=== PATIENT | male | born 1940 | race Caucasian/White ===

== ENCOUNTER 2017-01-09 19:02 | Inpatient (IN) ==
--- NOTE | 2017-01-09 19:12 | Emergency Department Note ---
Disposition Clinical Impression: Cellulitis of scrotum, Cellulitis of right leg Disposition: Admitted As Inpatient Condition: Good Time of Disposition: 23:00 Male Urogenital HPI - General Chief complaint: ED Urogenital-Male Stated complaint: scrotum swelling Time Seen by Provider: 01/09/17 19:09 Source: patient, EMS Mode of arrival: EMS Limitations: no limitations Nursing Notes Reviewed: Yes Vital Signs Reviewed: Yes - History of Present Illness HPI Narrative: 76-year-old male history of hypertension, hyperlipidemia, BPH, depression presents to the ED [place] for [place]al [place]. Patient presented to the [facility] care today after weeks worth of swelling and pain to the scrotum. He lives at home with his [id number] who finally made him come in for evaluation. He has had 2 days of difficulty with urination. He denies any fever, nausea, vomiting. He has some discomfort in the lower abdomen. Denies any history of diabetes. Patient is bedbound home due to weakness in his extremities. He has significant edema to his right lower leg pressure ulcers currently being treated. At the outside hospital there concern for gee gangrene. He had a WBC 14.4 with positive a cold blood. He was afebrile bear as well as here. Given a dose of Zosyn at the outside hospital. Will give him vancomycin as well as a CT abdomen and pelvis with IV contrast. Serum creatinine was 1.08. Glucose 89. Pt Subjective Complaint: testicle pain, testicle swelling - Related Data Home Medications Medication Instructions Recorded Confirmed Aloe Vera/Collagen [Aloe [place] 1 appl TP AD 01/09/17 01/09/17 Cleansing Foam] Azelastine 0.1% Nasal [place] 1 spray NS BID 01/09/17 01/09/17 [Astelin] Balsam [place] Oil [Venelex 1 appl TP BID 01/09/17 01/09/17 Ointment] Bisacodyl [Dulcolax] 10 mg PO DAILY PRN 01/09/17 01/09/17 Cholecalciferol (D-3) [Vitamin D] 2,000 unit PO DAILY 01/09/17 01/09/17 Cyanocobalamin (Vitamin B-12) 1,000 mcg PO DAILY 01/09/17 01/09/17 [Vitamin B12] Diclofenac Sodium [Voltaren] 4 gm TP QID PRN 01/09/17 01/09/17 Folic Acid 1 mg PO DAILY 01/09/17 01/09/17 Furosemide [Lasix] 40 mg PO DAILY 01/09/17 01/09/17 Gabapentin [Neurontin] 200 mg PO TID 01/09/17 01/09/17 Hexamethyldisiloxane/Acryl-Continuous Process Machine Operator [No 1 each TP AD 01/09/17 01/09/17 Sting Skin Prep Wipes] Hydrocortisone 1% OINT [Cortaid] 1 appl TP BID 01/09/17 01/09/17 Hydrocortisone 2.5% CREAM [Cortaid] 1 appl TP BID 01/09/17 01/09/17 Hydrocortisone/Pramoxine 1 applic RC BID PRN 01/09/17 01/09/17 [Proctofoam-Hc 1%-1% Foam] Hydrophilic Cream [Basle] 1 appl TP DAILY 01/09/17 01/09/17 Ketoconazole Shampoo [Nizoral 1 appl TP DAILY 01/09/17 01/09/17 Shampoo] Lidocaine 1 appl TP QID 01/09/17 01/09/17 Lisinopril [Zestril] 40 mg PO DAILY 01/09/17 01/09/17 Nystatin OINT [Mycostatin] 1 appl TP BID 01/09/17 01/09/17 Nystatin POWDER [Nystop] 1 appl TP BID 01/09/17 01/09/17 Potassium Chloride [K-Tab ER] 20 meq PO DAILY 01/09/17 01/09/17 Propylene Glycol/Peg 400 [Systane 1 drop BOTH EYES QID 01/09/17 01/09/17 0.3-0.4% Eye Drops] Ranitidine HCl [Zantac] 150 mg PO DAILY 01/09/17 01/09/17 Selenium Sulfide [Selrx] 1 appl TP 2XW 01/09/17 01/09/17 Sennosides/Docusate Sodium [Senna 2 each PO DAILY 01/09/17 01/09/17 Plus] Sod Chloride/B-6/Zinc Acet/Ca 3 - 5 spray TP BID 01/09/17 01/09/17 [Wound Cleanser] Tamsulosin [Flomax] 0.4 mg PO HS 01/09/17 01/09/17 Terbinafine HCl [Terbinafine] 1 appl TP BID 01/09/17 01/09/17 Triamcinolone Acet 0.1% CRM 1 appl TP BID 01/09/17 01/09/17 [Kenalog] Triamcinolone Acetonide [Nasacort] 2 spray NS DAILY 01/09/17 01/09/17 Flavia Kirby [Preparation H] 1 each TP BID PRN 01/09/17 01/09/17 Allergies Allergy/AdvReac Type Severity Reaction Status Date / Time atorvastatin Allergy Hives Verified 01/09/17 19:10 codeine Allergy Hives Verified 01/09/17 19:10 etodolac Allergy Hives Verified 01/09/17 19:10 losartan Allergy Hives Verified 01/09/17 19:10 naproxen Allergy Hives Verified 01/09/17 19:10 tramadol Allergy Hives Verified 01/09/17 19:10 All systems ED: reviewed and negative except as stated. Review of Systems: As Per HPI Constitutional: Denies: fever, chills, weight change ENT ED: Denies: congestion, dysphagia Cardiovascular: Denies: chest pain, dyspnea on exertion Respiratory: Denies: cough, dyspnea Gastrointestinal: Denies: abdominal pain, nausea, vomiting Genitourinary: Reports: dysuria, discharge, testicular pain, genital lesions. Denies: urgency Musculoskeletal: Denies: back pain, neck pain Integumentary: Reports: rash, abrasion, lesions Neurological: Denies: headache Psychiatric: Reports: depression. Denies: anxiety, suicidal thoughts, homicidal thoughts Endocrine: Denies: fatigue Hematological/Lymphatic: Denies: easy bleeding Past Medical History - Past Medical History Attestation: Yes The following information was validated with the patient. Source: patient, old records reviewed Medical history: Reports: arthritis, dementia, hyperlipidemia, hypertension, osteoporosis Psychiatric history: Reports: no psych history, anxiety, depression - Social History Smoking Status: Current every day smoker Smokeless Tobacco Status: No Alcohol use: Reports: rarely Drug use: Reports: none Physical Exam - General Limitations: no limitations General appearance: alert, obese - Head Head exam: normal inspection - Eye Eye exam: Present: normal appearance - ENT ENT exam: normal exam, normal oropharynx, mucous membranes moist, normal external ear exam - Neck Neck exam: Present: normal inspection, full ROM, trachea midline - Chest Chest inspection: Present: normal inspection, symmetric chest wall rise - Respiratory Respiratory exam: Present: normal lung sounds bilaterally. Absent: respiratory distress, wheezes - Cardiovascular Cardiovascular exam: Present: regular rate, normal rhythm, normal heart sounds - Abdominal Exam Abdominal Exam: Present: soft (OBESE ABDOMEN), Non-Tender, normal bowel sounds. Absent: tenderness, distention, guarding, rebound - Male exam: Present: induration, ulcerations, testicular tenderness, scrotal swelling, other (NO CREPITUS). Absent: circumcised Scrotal exam: testicular swelling: bilateral image: 1 - ERYTHEMA, SKIN ULCERATION, AND INDURATION WITH FOUL SMELL - Extremities Exam Extremities exam: Present: pedal edema (R > L) - Neurological Exam Neurological exam: Present: alert, oriented X3 - Skin Skin exam: Present: erythema (SCROTUM) - Expanded Skin Exam Distribution: genitals Description: Present: erythematous, swelling, discharge, fluctuant, indurated Course Course Narrative: 76-year-old male presents for scrotal swelling and erythema. Ongoing for the past week now more painful. Some difficulty with urination. Denies any fevers at home. He has a nondiabetic. Patients afebrile here. Sent from outside hospital with a leukocytosis 14. Concern for cellulitis and Gee Gangrene. The scrotum has some significant erythema and induration with a foul smell concern for necrotic tissue. There is no palpable crepitus. CT abdomen and pelvis with IV contrast ordered. He has are ready received IV Zosyn that outside hospital. Will add additional vancomycin coverage. Patients in agreement with this plan. Will consult surgery pending CT results in may likely need surgery. - Reevaluation(s) Reevaluation #1: CT of the pelvis reveals no subcutaneous emphysema or soft tissue gas to suggest gangrene. Clinically this is cellulitis. He will need admission to the hospital for further management. Patient and family are in agreement with this plan. He is otherwise in stable condition. Incidental findings include a bilateral scrotal hydrocele, multiple gallstones small hiatal hernia and a large prostate. Impression is scrotal and right leg cellulitis. Patient has already received Zosyn and vancomycin. Abdomen/Pelvis CT 01/09/17 19:09 IMPRESSION: 1. Bilateral scrotal hydrocele. No soft tissue emphysema. 2. Multiple gallstones. 3. Small hiatal hernia. 4. Mildly enlarged prostate. D/ / 01/09/2017 21:28:15 Derrick Doss MD / [facility] Interpreting Provider: Derrick Doss MD Time: 22:50 - Consultations Consultation #1: Spoke with on-call hospitalist julio Bee to admit for scrotal and right leg cellulitis. No further orders at this time Time: 22:58 Consultation #2: Spoke to the urologist nicolasa Yu to consult on the floor. No further intervention at this time. Time: 23:03 Vital Signs Temperature 97.1 F L 01/09/17 19:04 Pulse Rate 76 01/09/17 19:04 Respiratory Rate 20 01/09/17 19:04 Blood Pressure 164/90 01/09/17 19:04 O2 Sat by Pulse Oximetry 97 01/09/17 19:04 Temperature 98.2 F 01/10/17 03:39 Pulse Rate 70 01/10/17 03:39 Respiratory Rate 18 01/10/17 03:39 Blood Pressure 141/79 01/10/17 03:39 O2 Sat by Pulse Oximetry 92 01/10/17 03:39 Oxygen Delivery Oxygen Delivery Room Air Urogenital-Male - MDM Narrative Medical decision making narrative: Patient was discussed with my attending physician who agrees with ED management and final disposition. They independently evaluated the patient. Please refer to their attestation to this encounter for additional information. This note was generated by [employer] voice recognition software and as a result grammatical or spelling errors may occur using this program. - Medical Records Medical records reviewed: Yes I reviewed the patient's medical records. - Lab Data Lab results reviewed: Yes I reviewed the patient's lab results. Result diagrams: 01/10/17 01:18 - Radiology Data Radiology results reviewed: Yes I reviewed the patient's radiology results. Abdomen/Pelvis CT 01/09/17 19:09 IMPRESSION: 1. Bilateral scrotal hydrocele. No soft tissue emphysema. 2. Multiple gallstones. 3. Small hiatal hernia. 4. Mildly enlarged prostate. D/ / 01/09/2017 21:28:15 Derrick Doss MD / [facility] Interpreting Provider: Derrick Doss MD Critical Care Time Critical Care Time: No Attestation Statement - Attestation Attestation: I, Seth Nichols MD, personally evaluated this patient and discussed their management with the resident physician. I reviewed the resident's note and agree with the documented findings, medical decision making, and plan of care. 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 Patient has cellulitis of the right lower extremity which he states started about 2 weeks ago. Over the past 1 week he has developed increasing pain and redness and swelling of the scrotum. He denies any fever. He was evaluated at the [facility] urgent care and referred here because they were concerned about gangrene. He does complain of some perirectal pain and states it feels like he needs to have a bowel movement. He has been urinating. On examination patient is a well-developed obese elderly male in no acute distress. He is alert and oriented 3. There is no cyanosis or diaphoresis. Breath sounds are equal bilaterally. Heart regular rate and rhythm. Abdomen soft and nontender with normal bowel sounds. There is cellulitis of the scrotum and entire perineal area with some open weeping ulcerations and foul smelling drainage. No palpable crepitus. He is cellulitis and induration extends down onto the anteromedial aspect of the right thigh. He also has cellulitis involving the right lower leg. [facility] of the abdomen and pelvis with IV contrast showed: 1. Bilateral scrotal hydrocele. No soft tissue emphysema. 2. Multiple gallstones. 3. Small hiatal hernia. 4. Mildly enlarged prostate. Patient received IV Zosyn at the [facility] prior to arrival. He was given IV vancomycin here. The hospitalist, Dr. Caban, was consulted and accepted admission of the patient. Dr. Nunez also discussed the patient with the urologist instrumentation controls engineer, Dr. Cuevas.
[2017-01-09] MEDS ORDERED: Vancomycin 2,000 MG in D5% in Water 500 ML IVPB ONE (19:14)
[2017-01-09] MEDS ORDERED: *HR* HYDROmorphone (PF) 1 MG/ML SYRINGE IVP ONE (19:22)
[2017-01-09] MEDS ORDERED: Ondansetron 4 MG/2 ML VIAL IVP ONE (19:22)
[2017-01-10] MEDS ORDERED: ALOE VERA TP SCH (00:30)
[2017-01-10] MEDS ORDERED: COLLAGEN TP SCH (00:30)
[2017-01-10] MEDS ORDERED: [UNRECOGNIZED DRUG - REMARK] TP SCH (00:30)
[2017-01-10] MEDS ORDERED: *HR* Morphine 2 MG/ML SYRINGE IVP PRN (00:46)
[2017-01-10] MEDS ORDERED: Naloxone 0.4 MG/ML INJ IVP PRN (00:46)
[2017-01-10] MEDS ORDERED: Ondansetron 4 MG/2 ML VIAL IVP PRN (00:46)
[2017-01-10] MEDS ORDERED: Piperacillin/Tazobactam 3.375 GM in D5% in Water 50 ML IVPB SCH (01:00)
[2017-01-10] MEDS: 0.9 % Sodium Chloride 1,000 ML IVC SCH ×2 (01:41→20:17)
[2017-01-10 01:52] LABS: BUN/Creatinine Ratio 11 (6-26); Blood Urea Nitrogen 11 mg/dL (8-26); eGFR For African Americans > 60 (> 60); eGFR For Non-African Americans > 60 (> 60)
--- NOTE | 2017-01-10 04:36 | Internal Med History&Physical ---
Date of Encounter: 01/10/17 Time of Encounter: 04:00 Assessment and Plan (1) Cellulitis of scrotum Current visit: Yes Status: Acute Acute cellulitis of scrotum - unclear etiology Continue empiric IV Zosyn, IV Vancomycin CT abdomen and pelvis - bilateral scrotal hydrocele, no soft tissue emphysema, multiple gallstones WBC - 12.8 Cultures - pending Urology consultation pending NPO, labs in a.m., monitor closely (2) Cellulitis of right leg Current visit: Yes Status: Acute Acute cellulitis of right lower leg with chronic edema of bilateral lower legs with open wound Continue empiric IV Zosyn, IV Vancomycin, IV fluids CT abdomen and pelvis - reviewed Wound care consult, change dressing daily, cultures pending (3) Hypertension Current visit: Yes Status: Chronic Essential hypertension, controlled, monitor Continue home dose of Lasix, Zestril Qualifiers: Hypertension type: essential hypertension Qualified Code(s): I10 - Essential (primary) hypertension (4) Morbid obesity Current visit: Yes Status: Acute Abdomen obesity, BMI 43.4, advised lifestyle modifications (5) DVT prophylaxis Current visit: Yes Status: Acute Heparin subcutaneous Internal Medicine - H&P: HPI Chief complaint: Scrotal swelling Admitted From: Emergency Dept Plans for Post Hospital Care: Home History of present illness: Mr. Rodriguez is a 76 year old male with past medical history of hypertension, BPH , chronic leg edema bilateral, peripheral neuropathy and restless legs. He presents to the ED with complaints of scrotal swelling and pain. Examined in the room. Patient is awake and alert. Not in any distress. Able to provide all history. No family members at bedside. Patient states scrotal pain and swelling started about 1 week ago, and symptoms of gradually worsening. Pain is worse with movement. No aggravating or alleviating factors. Patient has also had difficulty with urination for the past 2 days. He denies fever or abdominal pain or vomiting. He denies chest pain or shortness of breath. Denies cough or dizziness or headache. Patient does have severe edema. His lower legs which is worse on the right side and also has ulcers on the right lower leg. [facility]. There is concern for Yobani gangrene. Patient denies any other complaints. No other associated symptoms. Initial workup in the ED is significant for elevated white count and bilateral scrotal hydroceles seen on CT abdomen. There is no soft tissue emphysema. Urology has been consulted from the ED. Patient will need to be on IV antibiotics and will need urology evaluation. Patient has been explained about his condition and plan of care in detail. He understood and agreed. No unanswered questions. CODE STATUS full code. Past Med Surg Social Fam HX - Past Medical History Medical history: arthritis, dementia, hyperlipidemia, hypertension, osteoporosis Psychiatric history: no psych history, anxiety, depression - Social History Smoking Status: Current every day smoker Smokeless Tobacco Status: No Alcohol use: rarely Drug use: none Internal Medicine - H&P: Meds Aloe Vera/Collagen [Aloe [place] Cleansing Foam] 1 appl TP AD 01/09/17 [History] Azelastine 0.1% Nasal [place] [Astelin] 1 spray NS BID 01/09/17 [History] Balsam [place] Oil [Venelex Ointment] 1 appl TP BID 01/09/17 [History] Bisacodyl [Dulcolax] 10 mg PO DAILY PRN 01/09/17 [History] Cholecalciferol (D-3) [Vitamin D] 2,000 unit PO DAILY 01/09/17 [History] Cyanocobalamin (Vitamin B-12) [Vitamin B12] 1,000 mcg PO DAILY 01/09/17 [History ] Diclofenac Sodium [Voltaren] 4 gm TP QID PRN 01/09/17 [History] Folic Acid 1 mg PO DAILY 01/09/17 [History] Furosemide [Lasix] 40 mg PO DAILY 01/09/17 [History] Gabapentin [Neurontin] 200 mg PO TID 01/09/17 [History] Hexamethyldisiloxane/Acryl-[place] Alarm Operator [No Sting Skin Prep Wipes] 1 each TP AD 01/09/17 [History] Hydrocortisone 1% OINT [Cortaid] 1 appl TP BID 01/09/17 [History] Hydrocortisone 2.5% CREAM [Cortaid] 1 appl TP BID 01/09/17 [History] Hydrocortisone/Pramoxine [Proctofoam-Hc 1%-1% Foam] 1 applic RC BID PRN [History] Hydrophilic Cream [Basle] 1 appl TP DAILY 01/09/17 [History] Ketoconazole Shampoo [Nizoral Shampoo] 1 appl TP DAILY 01/09/17 [History] Lidocaine 1 appl TP QID 01/09/17 [History] Lisinopril [Zestril] 40 mg PO DAILY 01/09/17 [History] Nystatin OINT [Mycostatin] 1 appl TP BID 01/09/17 [History] Nystatin POWDER [Nystop] 1 appl TP BID 01/09/17 [History] Potassium Chloride [K-Tab ER] 20 meq PO DAILY 01/09/17 [History] Propylene Glycol/Peg 400 [Systane 0.3-0.4% Eye Drops] 1 drop BOTH EYES QID 01/09 [History] Ranitidine HCl [Zantac] 150 mg PO DAILY 01/09/17 [History] Selenium Sulfide [Selrx] 1 appl TP 2XW 01/09/17 [History] Sennosides/Docusate Sodium [Senna Plus] 2 each PO DAILY 01/09/17 [History] Sod Chloride/B-6/Zinc Acet/Ca [Wound Cleanser] 3 - 5 spray TP BID 01/09/17 [ History] Tamsulosin [Flomax] 0.4 mg PO HS 01/09/17 [History] Terbinafine HCl [Terbinafine] 1 appl TP BID 01/09/17 [History] Triamcinolone Acet 0.1% CRM [Kenalog] 1 appl TP BID 01/09/17 [History] Triamcinolone Acetonide [Nasacort] 2 spray NS DAILY 01/09/17 [History] Flavia Kirby [Preparation H] 1 each TP BID PRN 01/09/17 [History] 3 Allergy/AdvReac Type Severity Reaction Status Date / Time atorvastatin Allergy Hives Verified 01/09/17 19:10 codeine Allergy Hives Verified 01/09/17 19:10 etodolac Allergy Hives Verified 01/09/17 19:10 losartan Allergy Hives Verified 01/09/17 19:10 naproxen Allergy Hives Verified 01/09/17 19:10 tramadol Allergy Hives Verified 01/09/17 19:10 All Systems PM: A 10-system review of systems was performed and is negative for pertinent findings except as documented above in the HPI. - Constitutional Constitutional: fatigue, no fever(s), no weakness - EENT Eyes: no blurry vision - Cardiovascular Cardiovascular ROS IM: edema, no chest pain, no claudication, no diaphoresis, no dyspnea, no dyspnea on exertion, no orthopnea, no palpitations, no syncope - Respiratory Respiratory: no cough, no dyspnea, no hemoptysis, no wheezing, no chest congestion - Gastrointestinal Gastrointestinal: no abdominal pain, no belching, no cramping, no diarrhea, no hematochezia, no nausea, no vomiting - Genitourinary Genitourinary ROS male: scrotal swelling, testicular pain, no dysuria - Neurological Neurological ROS: no abnormal gait, no convulsions, no dizziness, no numbness, no tingling - Constitutional Vitals: Temp Pulse Resp BP Pulse Ox 98.2 F 70 18 141/79 92 01/10/17 03:39 01/10/17 03:39 01/10/17 03:39 01/10/17 03:39 01/10/17 03:39 General appearance: Present: cooperative, A&O X 3, morbidly obese, pleasant, no acute distress, answers questions appropriately - Head Head exam: Present: atraumatic - Eye Eye exam: Present: EOMI - ENT ENT exam: Present: mucous membranes moist - Respiratory Respiratory exam: Present: CTAB. Absent: rales, rhonchi, wheezes, tachypnea - Cardiovascular Cardiovascular exam: Present: RRR, +S1, +S2 - GI/Abdominal GI/Abdominal exam: Present: soft. Absent: distended, firm, guarding, tenderness - exam: Present: scrotal swelling, testicular tenderness External exam: Present: erythema Additional comments: Significant scrotal edema and erythema. Tenderness present. Erythema over the medial aspect of both thighs. No obvious discharge seen. - Extremities Exam Extremities exam: Present: pedal edema (Bilateral lower leg 3+edema, worse on right side, ulcer over right lower leg.), radial pulses palpable and symmetrical. Absent: calf tenderness, cyanotic - Neurological Exam Neurological exam: Present: alert, oriented X3, no focal deficits. Absent: facial droop, speech deficit Internal Med - H&P Results - Labs CBC & Chem 7: 01/10/17 04:34 01/10/17 04:34 Labs: BMP 01/10/17 01:18 BUN 11 Creatinine 0.97
[2017-01-10 04:47] LABS: Basophils # 0.1 K/mcL (0.0-0.2); Basophils % 0.4 %; Eosinophils # 0.3 K/mcL (0.0-0.6); Eosinophils % 2.1 %; Hemoglobin 16.1 g/dL (12.9-16.9); Immature Granulocytes % 0.5 % (0-4); Lymphocytes # 0.8 K/mcL (0.6-4.6); Lymphocytes % 6.6 %; Mean Corpuscular HGB Conc 32.9 g/dL (31.6-35.5); Mean Corpuscular Hemoglobin 32.1 pg (28.0-33.3); Mean Corpuscular Volume 97.8 fL (83.0-100.0); Mean Platelet Volume 12.2 fL (9.4-12.4); Monocytes % 7.5 %; Neutrophils # 10.6 K/mcL (1.6-8.9); Platelet Count 177 K/mcL (140-400); Red Blood Count 5.01 M/mcL (4.19-5.50); Segmented Neutrophils % 82.9 %
[2017-01-10] MEDS: *HR* Heparin 5,000 UNIT/ML VIAL SQ SCH ×2 (04:53→16:44)
[2017-01-10] MEDS: Acetaminophen 325 MG TABLET PO PRN ×3 (04:53→20:18)
[2017-01-10 04:54] LABS: INR 1.2
[2017-01-10 05:00] LABS: BUN/Creatinine Ratio 11 (6-26); Blood Urea Nitrogen 11 mg/dL (8-26); Calcium 8.7 mg/dL (8.6-10.8); Carbon Dioxide 29 mEq/L (19-29); Chloride 99 mEq/L (98-109); Glucose 95 mg/dL (70-99); Magnesium 1.6 mg/dL (1.6-2.6); Osmolality,Calculated 279 (280-300); Potassium 3.8 mEq/L (3.5-4.5); Sodium 135 mEq/L (136-145); eGFR For African Americans > 60 (> 60); eGFR For Non-African Americans > 60 (> 60)
[2017-01-10] MEDS: Vancomycin 1,500 MG in D5% in Water 250 ML IVPB SCH ×2 (08:14→20:18)
[2017-01-10] MEDS: PROPYLENE GLYCOL OP SCH (08:18)
[2017-01-10] MEDS: Lisinopril 20 MG TABLET PO SCH (08:18)
[2017-01-10] MEDS: Gabapentin 100 MG CAPSULE PO SCH ×3 (08:18→20:18)
[2017-01-10] MEDS: Famotidine 20 MG TABLET PO SCH (08:18)
[2017-01-10] MEDS: Folic Acid 1 MG TABLET PO SCH (08:18)
[2017-01-10] MEDS: PEG OP SCH (08:18)
[2017-01-10] MEDS: Sennosides/Docusate Sodium TABLET PO SCH (08:19)
[2017-01-10] MEDS: Cholecalciferol (D-3) 1,000 UNIT TABLET PO SCH (08:19)
[2017-01-10] MEDS: Cyanocobalamin (B-12) 1,000 MCG TABLET PO SCH (08:19)
[2017-01-10] MEDS: Lidocaine OINT 35.44 GM TUBE TP SCH ×5 (08:20→20:36)
[2017-01-10] MEDS ORDERED: Furosemide 40 MG TABLET PO SCH (09:00)
[2017-01-10 09:16] LABS: Bilirubin,Urine Negative (Negative); Blood,Urine Negative (Negative); Clarity,Urine Clear (Clear); Color,Urine Yellow (Yellow); Glucose,Urine (UA) Normal (Normal); Ketones,Urine Trace mg/dL (Negative); Leukocyte Esterase,Urine Negative (Negative); Nitrite,Urine Negative (Negative); Protein,Urine Negative (Neg-Trace); Specific Gravity,Urine > 1.030 (1.010-1.025); Urobilinogen,Urine Normal (Normal)
--- NOTE | 2017-01-10 09:23 | Urology - Consult Note ---
Date of Encounter: 01/10/17 Time of Encounter: 09:21 - Assessment and Plan (1) Cellulitis of scrotum Current Visit: Yes Status: Acute Assessment and plan: I question whether the scrotal and inguinal irritation is more irritation than cellulitis. I Will add Desitin cream to provide barrier. No surgical intervention needed at this time. Recommend to continue with antibiotics. Scrotal elevation at all times. We will continue to follow along closely at this time. CT scan was personally reviewed with no obvious scrotal wall infection. Patient did have bilateral small hydroceles on CT scan. Urology CN:HPI Consult date: 01/10/17 Reason for consult Urology: Other (scrotal swelling) Requesting physician: Anderson Doyle History of present illness: Jayden is a 76 y/o male with history of scrotal swelling for past few weeks. The patient states that he has had this happen before secondary to "fungal infection." Patient states that his discomfort in his scrotum has become worse. Pain is a 5 out of 10. Looking in the scrotum with no radiation. Pain is sharp. Patient states that he does dribble some urine on his scrotum and inguinal region. Past Med Surg Social Fam HX - Past Medical History Medical history: arthritis, dementia, hyperlipidemia, hypertension, osteoporosis Psychiatric history: no psych history, anxiety, depression - Social History Smoking Status: Current every day smoker Smokeless Tobacco Status: No Alcohol use: rarely Drug use: none Medications and Allergies Aloe Vera/Collagen [Aloe [place] Cleansing Foam] 1 appl TP AD 01/09/17 [History] Azelastine 0.1% Nasal [place] [Astelin] 1 spray NS BID 01/09/17 [History] Balsam [place] Oil [Venelex Ointment] 1 appl TP BID 01/09/17 [History] Bisacodyl [Dulcolax] 10 mg PO DAILY PRN 01/09/17 [History] Cholecalciferol (D-3) [Vitamin D] 2,000 unit PO DAILY 01/09/17 [History] Cyanocobalamin (Vitamin B-12) [Vitamin B12] 1,000 mcg PO DAILY 01/09/17 [History ] Diclofenac Sodium [Voltaren] 4 gm TP QID PRN 01/09/17 [History] Folic Acid 1 mg PO DAILY 01/09/17 [History] Furosemide [Lasix] 40 mg PO DAILY 01/09/17 [History] Gabapentin [Neurontin] 200 mg PO TID 01/09/17 [History] Hexamethyldisiloxane/Acryl-Hardware Designer [No Sting Skin Prep Wipes] 1 each TP AD 01/09/17 [History] Hydrocortisone 1% OINT [Cortaid] 1 appl TP BID 01/09/17 [History] Hydrocortisone 2.5% CREAM [Cortaid] 1 appl TP BID 01/09/17 [History] Hydrocortisone/Pramoxine [Proctofoam-Hc 1%-1% Foam] 1 applic RC BID PRN [History] Hydrophilic Cream [Bas[place]] 1 appl TP DAILY 01/09/17 [History] Ketoconazole Shampoo [Nizoral Shampoo] 1 appl TP DAILY 01/09/17 [History] Lidocaine 1 appl TP QID 01/09/17 [History] Lisinopril [Zestril] 40 mg PO DAILY 01/09/17 [History] Nystatin OINT [Mycostatin] 1 appl TP BID 01/09/17 [History] Nystatin POWDER [Nystop] 1 appl TP BID 01/09/17 [History] Potassium Chloride [K-Tab ER] 20 meq PO DAILY 01/09/17 [History] Propylene Glycol/Peg 400 [Systane 0.3-0.4% Eye Drops] 1 drop BOTH EYES QID 01/09 [History] Ranitidine HCl [Zantac] 150 mg PO DAILY 01/09/17 [History] Selenium Sulfide [Selrx] 1 appl TP 2XW 01/09/17 [History] Sennosides/Docusate Sodium [Senna Plus] 2 each PO DAILY 01/09/17 [History] Sod Chloride/B-6/Zinc Acet/Ca [Wound Cleanser] 3 - 5 spray TP BID 01/09/17 [ History] Tamsulosin [Flomax] 0.4 mg PO HS 01/09/17 [History] Terbinafine HCl [Terbinafine] 1 appl TP BID 01/09/17 [History] Triamcinolone Acet 0.1% CRM [Kenalog] 1 appl TP BID 01/09/17 [History] Triamcinolone Acetonide [Nasacort] 2 spray NS DAILY 01/09/17 [History] Flavia Kirby [Preparation H] 1 each TP BID PRN 01/09/17 [History] 3 Allergy/AdvReac Type Severity Reaction Status Date / Time atorvastatin Allergy Hives Verified 01/09/17 19:10 codeine Allergy Hives Verified 01/09/17 19:10 etodolac Allergy Hives Verified 01/09/17 19:10 losartan Allergy Hives Verified 01/09/17 19:10 naproxen Allergy Hives Verified 01/09/17 19:10 tramadol Allergy Hives Verified 01/09/17 19:10 Review of Systems - Constitutional no chills - EENT Nose, mouth and throat: no dizziness - Cardiovascular no chest pain - Respiratory no cough - Gastrointestinal no abdominal pain - Genitourinary as per HPI - Musculoskeletal no back pain - Integumentary no erythema - Neurological no confusion - Psychiatric no anxiety - Hematologic/Lymphatic no easy bleeding - Allergic/Immunologic no throat swelling Exam Initial Vital Signs Temp Pulse Resp BP Pulse Ox 97.1 F L 76 20 164/90 97 01/09/17 19:04 01/09/17 19:04 01/09/17 19:04 01/09/17 19:04 01/09/17 19:04 - General physical appearance Present: well developed - Eyes Present: PERRL - ENT Present: normal nares - Neck Present: no masses - Respiratory Present: normal respiratory effort - Cardiovascular Cardiovascular exam IM: RRR - Abdomen Abdomen: Present: soft - Genitourinary other (Irritated area on scrotum and inguinal regions. Appears more irritated than infectious.) - Integumentary Present: other (See genital urinary exam) - Neurologic Present: normal coordination Urology Results - Labs 01/10/17 04:34 01/10/17 04:34 Abnormal lab results WBC 12.8 K/mcL (4.3-11.1) H 01/10/17 04:34 Neutrophils # 10.6 K/mcL (1.6-8.9) H 01/10/17 04:34 PT 13.0 Seconds (9.4-12.1) H 01/10/17 04:34 Sodium 135 mEq/L (136-145) L 01/10/17 04:34 Calculated Osmolality 279 (280-300) L 01/10/17 04:34 Ur Specific Powers > 1.030 (1.010-1.025) H 01/10/17 09:00 Urine Ketones Trace mg/dL (Negative) H 01/10/17 09:00 Diabetes panel 01/10/17 01/10/17 Range/Units 01:18 04:34 Sodium 135 L (136-145) mEq/L Potassium 3.8 (3.5-4.5) mEq/L Chloride 99 (98-109) mEq/L Carbon Dioxide 29 (19-29) mEq/L BUN 11 11 (8-26) mg/dL Creatinine 0.97 0.97 (0.72-1.25) mg/dL Glucose 95 (70-99) mg/dL Calcium 8.7 (8.6-10.8) mg/dL Calcium panel 01/10/17 Range/Units 04:34 Calcium 8.7 (8.6-10.8) mg/dL Pituitary panel 01/10/17 01/10/17 Range/Units 01:18 04:34 Sodium 135 L (136-145) mEq/L Potassium 3.8 (3.5-4.5) mEq/L Chloride 99 (98-109) mEq/L Carbon Dioxide 29 (19-29) mEq/L BUN 11 11 (8-26) mg/dL Creatinine 0.97 0.97 (0.72-1.25) mg/dL Glucose 95 (70-99) mg/dL Calcium 8.7 (8.6-10.8) mg/dL Adrenal panel 01/10/17 01/10/17 Range/Units 01:18 04:34 Sodium 135 L (136-145) mEq/L Potassium 3.8 (3.5-4.5) mEq/L Chloride 99 (98-109) mEq/L Carbon Dioxide 29 (19-29) mEq/L BUN 11 11 (8-26) mg/dL Creatinine 0.97 0.97 (0.72-1.25) mg/dL Glucose 95 (70-99) mg/dL Calcium 8.7 (8.6-10.8) mg/dL All other labs normal. - Imaging CT scan - abdomen: image reviewed CT scan - pelvis: image reviewed Consult Discharge Plan - Plan [facility]errals: [facility] [Primary Care Provider] - Rebecca Munoz [Family Provider] -
[2017-01-10] MEDS: Piperacillin/Tazobactam 3.375 GM in D5% in Water 50 ML IVPB SCH ×2 (11:53→16:45)
[2017-01-10] MEDS: Desitin (Zinc Oxide) 56 GM TUBE TP SCH ×2 (12:24→20:19)
--- NOTE | 2017-01-10 14:38 | Internal Med Progress Note ---
Date of Encounter: 01/10/17 Time of Encounter: 14:31 - Assessment and plan (1) Bilateral lower extremity edema Current Visit: Yes Status: Acute (2) Cellulitis of scrotum Current Visit: Yes Status: Acute (3) Cellulitis of right leg Current Visit: Yes Status: Acute (4) Morbid obesity Current Visit: Yes Status: Acute (5) Hypertension Current Visit: Yes Status: Chronic Qualifiers: Hypertension type: essential hypertension Qualified Code(s): I10 - Essential (primary) hypertension - Subjective Interval history: Admitted for lower extremity cellulitis and scrotal cellulitis. On IV Vanco and Zosyn. Urology thinks this could be due to skin irritation and a morbidly obese male. Desitin cream prescribed. Patient is concerned about leg swelling and redness. Examined ; it appears he has severe bilateral lower extremity edema with the stasis dermatitis as well as some skin vesicles due to edema. Iodoform dressing with wet and dry dressing daily pressure wrap and SCD prescribed. Increase Lasix to 40 IV twice a day follow CBC CMP magnesium. Order an echocardiogram. Suspect severe pulmonary hypertension/right sided heart failure - Constitutional Vitals: Temp Pulse Resp BP Pulse Ox 98.1 F 75 14 148/86 95 01/10/17 13:56 01/10/17 13:56 01/10/17 13:56 01/10/17 13:56 01/10/17 13:56 General appearance: Present: cooperative, A&O X 3, morbidly obese, pleasant, no acute distress, answers questions appropriately - Head Head exam: Present: atraumatic, normocephalic - Eye Eye exam: Present: PERRL, conjuntiva pink, sclera anicteric Pupils: Present: PERRL - Neck Neck exam general surgery: Present: supple, trachea midline. Absent: lymphadenopathy - Respiratory Respiratory exam: Present: CTAB. Absent: accessory muscle use, rales, rhonchi, wheezes - Cardiovascular Cardiovascular exam: Present: RRR, +S1, +S2. Absent: diastolic murmur, gallop, rubs, systolic murmur - GI/Abdominal GI/Abdominal exam: Present: normal bowel sounds, soft, no peritoneal signs. Absent: distended, tenderness - Extremities Exam Extremities exam: Present: warm, radial pulses palpable and symmetrical. Absent : calf tenderness, cyanotic, pedal edema Additional comments: Scrotal examination per urology. Bilateral lower extremity shows severe edema and stasis dermatitis with some redness and vesicles which have already ruptured. Neurovascular stable - Neurological Exam Neurological exam: Present: CN II-XII intact, oriented X3, no focal deficits. Absent: pronater drift, facial droop, speech deficit - Skin Skin exam: Present: dry, intact Internal Medicine: Result - Labs CBC & Chem 7: 01/10/17 04:34 01/10/17 04:34 Labs: Short CBC 01/10/17 Range/Units 04:34 WBC 12.8 H (4.3-11.1) K/mcL Hgb 16.1 (12.9-16.9) g/dL Hct 49.0 (37.5-50.1) % Plt Count 177 (140-400) K/mcL Neutrophils # 10.6 H (1.6-8.9) K/mcL BMP 01/10/17 01/10/17 01:18 04:34 Sodium 135 L Potassium 3.8 Chloride 99 Carbon Dioxide 29 BUN 11 11 Creatinine 0.97 0.97 Glucose 95 Calcium 8.7 Urine 01/10/17 Range/Units 09:00 Urine Color Yellow (Yellow) Urine Clarity Clear (Clear) Urine pH 6.0 (5.0-8.0) pH Units Ur Specific [place] > 1.030 H (1.010-1.025) Urine Protein Negative (Neg-Trace) mg/dL Urine Glucose (UA) Normal (Normal) mg/dL - ABG Interpretation ABG results: PT/INR, D-dimer PT 13.0 Seconds (9.4-12.1) H 01/10/17 04:34 Consult Discharge Plan - Plan [facility]errals: [facility] [Primary Care Provider] - Rebecca Munoz [Family Provider] -
[2017-01-10] MEDS: Furosemide 40 MG/4 ML VIAL IVP SCH (16:44)
[2017-01-10] MEDS: Propylene Glycol/Peg 400 [Systane 0.3-0.4% Eye Drops] OP SCH ×2 (16:45→20:20)
[2017-01-11] MEDS: Piperacillin/Tazobactam 3.375 GM in 0.9 % Sodium Chloride Mini Bag 100 ML IVPB SCH ×3 (01:50→17:49)
[2017-01-11] MEDS: *HR* Heparin 5,000 UNIT/ML VIAL SQ SCH ×2 (06:11→17:50)
[2017-01-11 08:26] LABS: Basophils # 0.1 K/mcL (0.0-0.2); Basophils % 0.5 %; Eosinophils # 0.3 K/mcL (0.0-0.6); Eosinophils % 2.8 %; Hematocrit 50.7 % (37.5-50.1); Hemoglobin 16.5 g/dL (12.9-16.9); Immature Granulocytes % 0.5 % (0-4); Lymphocytes % 9.5 %; Mean Corpuscular HGB Conc 32.5 g/dL (31.6-35.5); Mean Corpuscular Volume 98.3 fL (83.0-100.0); Monocytes # 0.9 K/mcL (0.0-1.3); Monocytes % 8.5 %; Neutrophils # 7.9 K/mcL (1.6-8.9); Platelet Count 191 K/mcL (140-400); Red Blood Count 5.16 M/mcL (4.19-5.50); Red Cell Distribution Width 13.8 % (11.5-14.5); Segmented Neutrophils % 78.2 %
[2017-01-11 08:36] LABS: Alanine Aminotransferase 15 Units/L (0-55); Albumin 2.5 g/dL (3.5-5.0); Albumin/Globulin Ratio 0.6 (1.1-2.2); Alkaline Phosphatase 109 Units/L (38-126); Aspartate Amino Transferase 27 Units/L (5-34); BUN/Creatinine Ratio 12 (6-26); Blood Urea Nitrogen 11 mg/dL (8-26); Calcium 8.6 mg/dL (8.6-10.8); Carbon Dioxide 29 mEq/L (19-29); Chloride 97 mEq/L (98-109); Globulin 4.1 g/dL (2.4-3.5); Glucose 70 mg/dL (70-99); Osmolality,Calculated 278 (280-300); Potassium 3.6 mEq/L (3.5-4.5); Sodium 135 mEq/L (136-145); Total Protein 6.6 g/dL (6.0-8.3); eGFR For African Americans > 60 (> 60); eGFR For Non-African Americans > 60 (> 60)
[2017-01-11] MEDS: Famotidine 20 MG TABLET PO SCH (10:03)
[2017-01-11] MEDS: Propylene Glycol/Peg 400 [Systane 0.3-0.4% Eye Drops] OP SCH ×4 (10:03→22:23)
[2017-01-11] MEDS: Furosemide 40 MG/4 ML VIAL IVP SCH ×2 (10:03→17:36)
[2017-01-11] MEDS: Gabapentin 100 MG CAPSULE PO SCH ×3 (10:03→20:30)
[2017-01-11] MEDS: Desitin (Zinc Oxide) 56 GM TUBE TP SCH ×2 (10:03→20:30)
[2017-01-11] MEDS: Lidocaine OINT 35.44 GM TUBE TP SCH ×3 (10:03→20:30)
[2017-01-11] MEDS: Lisinopril 20 MG TABLET PO SCH (10:03)
[2017-01-11] MEDS: Cholecalciferol (D-3) 1,000 UNIT TABLET PO SCH ×2 (15:16→20:30)
[2017-01-11] MEDS: Folic Acid 1 MG TABLET PO SCH ×2 (15:16→20:31)
[2017-01-11] MEDS: Cyanocobalamin (B-12) 1,000 MCG TABLET PO SCH ×2 (15:16→20:30)
[2017-01-11] MEDS: Sennosides/Docusate Sodium TABLET PO SCH (15:16)
[2017-01-11] MEDS: *HR* Morphine 2 MG/ML SYRINGE IVP PRN (15:46)
--- NOTE | 2017-01-11 15:50 | Urology Progress Note ---
Date of Encounter: 01/11/17 Time of Encounter: 15:49 - Assessment and Plan (1) Cellulitis of scrotum Current Visit: Yes Status: Acute Assessment and plan: continue with desitin cream. scrotal elevation. will continue to follow. Progress Note Narrative: patient seen. feels better. Objective Initial Vital Signs Temp Pulse Resp BP Pulse Ox 97.1 F L 76 20 164/90 97 01/09/17 19:04 01/09/17 19:04 01/09/17 19:04 01/09/17 19:04 01/09/17 19:04 - General physical appearance Present: well developed - Abdomen Present: soft - Genitourinary Present: other (improved irritation on scrotum and inguinal regions. ) - Labs 01/11/17 07:25 01/11/17 07:15 Diabetes panel 01/11/17 Range/Units 07:15 Sodium 135 L (136-145) mEq/L Potassium 3.6 (3.5-4.5) mEq/L Chloride 97 L (98-109) mEq/L Carbon Dioxide 29 (19-29) mEq/L BUN 11 (8-26) mg/dL Creatinine 0.95 (0.72-1.25) mg/dL Glucose 70 (70-99) mg/dL Calcium 8.6 (8.6-10.8) mg/dL AST 27 (5-34) Units/L ALT 15 (0-55) Units/L Alkaline Phosphatase 109 (38-126) Units/L Albumin 2.5 L (3.5-5.0) g/dL Calcium panel 01/11/17 Range/Units 07:15 Calcium 8.6 (8.6-10.8) mg/dL Albumin 2.5 L (3.5-5.0) g/dL Pituitary panel 01/11/17 Range/Units 07:15 Sodium 135 L (136-145) mEq/L Potassium 3.6 (3.5-4.5) mEq/L Chloride 97 L (98-109) mEq/L Carbon Dioxide 29 (19-29) mEq/L BUN 11 (8-26) mg/dL Creatinine 0.95 (0.72-1.25) mg/dL Glucose 70 (70-99) mg/dL Calcium 8.6 (8.6-10.8) mg/dL Adrenal panel 01/11/17 Range/Units 07:15 Sodium 135 L (136-145) mEq/L Potassium 3.6 (3.5-4.5) mEq/L Chloride 97 L (98-109) mEq/L Carbon Dioxide 29 (19-29) mEq/L BUN 11 (8-26) mg/dL Creatinine 0.95 (0.72-1.25) mg/dL Glucose 70 (70-99) mg/dL Calcium 8.6 (8.6-10.8) mg/dL Total Bilirubin 1.0 (0.2-1.2) mg/dL AST 27 (5-34) Units/L ALT 15 (0-55) Units/L Alkaline Phosphatase 109 (38-126) Units/L Albumin 2.5 L (3.5-5.0) g/dL Consult Discharge Plan - Plan Referrals: [facility] [Primary Care Provider] - Rebecca Munoz [Family Provider] -
[2017-01-11] MEDS: Vancomycin 1,750 MG in D5% in Water 500 ML IVPB SCH (18:29)
--- NOTE | 2017-01-11 18:39 | Internal Med Progress Note ---
Date of Encounter: 01/11/17 Time of Encounter: 18:37 - Assessment and plan (1) Bilateral lower extremity edema Current Visit: Yes Status: Acute Assessment and plan: Asymmetric lower extremities swelling order Doppler ultrasound of legs (2) Cellulitis of scrotum Current Visit: Yes Status: Acute Assessment and plan: Improving with dot cream (3) Cellulitis of right leg Current Visit: Yes Status: Acute Assessment and plan: IV Zosyn and vancomycin (4) Morbid obesity Current Visit: Yes Status: Acute (5) Hypertension Current Visit: Yes Status: Chronic Qualifiers: Hypertension type: essential hypertension Qualified Code(s): I10 - Essential (primary) hypertension - Subjective Interval history: Admitted for lower extremity cellulitis and scrotal cellulitis. On IV Vanco and Zosyn. Urology thinks this could be due to skin irritation and a morbidly obese male. Desitin cream prescribed. Patient is concerned about leg swelling and redness. Examined ; it appears he has severe bilateral lower extremity edema with the stasis dermatitis as well as some skin vesicles due to edema. Iodoform dressing with wet and dry dressing daily pressure wrap and SCD prescribed. Increase Lasix to 40 IV twice a day follow CBC CMP magnesium. Order an echocardiogram. Suspect severe pulmonary hypertension/right sided heart failure 01/11 asymptomatic. Wants to go home. Diuresing well. Asymmetric leg edema noted. Ordering leg ultrasound to rule out DVT. Bilateral leg redness suspect chronic venous stasis dermatitis may have superimposed infection currently on IV vancomycin and Zosyn. Bilateral scrotal edema and redness and urology thinks that this may be due to irritation and Desitin cream was prescribed. Definite improvement in coloration. Significant lower body edema to diurese him. Echocardiogram and ultrasound of lower extremity pending - Constitutional Vitals: Temp Pulse Resp BP Pulse Ox 98.6 F 75 14 117/71 93 01/11/17 14:54 01/11/17 14:54 01/11/17 14:54 01/11/17 14:54 01/11/17 14:54 General appearance: Present: cooperative, A&O X 3, morbidly obese, pleasant, no acute distress, answers questions appropriately - Head Head exam: Present: atraumatic, normocephalic - Eye Eye exam: Present: PERRL, conjuntiva pink, sclera anicteric Pupils: Present: PERRL - Neck Neck exam general surgery: Present: supple, trachea midline. Absent: lymphadenopathy - Respiratory Respiratory exam: Present: CTAB. Absent: accessory muscle use, rales, rhonchi, wheezes - Cardiovascular Cardiovascular exam: Present: RRR, +S1, +S2. Absent: diastolic murmur, gallop, rubs, systolic murmur - GI/Abdominal GI/Abdominal exam: Present: normal bowel sounds, soft, no peritoneal signs. Absent: distended, tenderness - Extremities Exam Extremities exam: Present: pedal edema, tenderness, warm, radial pulses palpable and symmetrical. Absent: calf tenderness, cyanotic - Neurological Exam Neurological exam: Present: CN II-XII intact, oriented X3, no focal deficits. Absent: pronater drift, facial droop, speech deficit - Skin Skin exam: Present: dry, intact Internal Medicine: Result - Labs CBC & Chem 7: 01/11/17 07:25 01/11/17 07:15 Labs: Short CBC 01/11/17 Range/Units 07:25 WBC 10.1 (4.3-11.1) K/mcL Hgb 16.5 (12.9-16.9) g/dL Hct 50.7 H (37.5-50.1) % Plt Count 191 (140-400) K/mcL Neutrophils # 7.9 (1.6-8.9) K/mcL BMP 01/11/17 07:15 Sodium 135 L Potassium 3.6 Chloride 97 L Carbon Dioxide 29 BUN 11 Creatinine 0.95 Glucose 70 Calcium 8.6 Liver Function 01/11/17 Range/Units 07:15 Total Bilirubin 1.0 (0.2-1.2) mg/dL AST 27 (5-34) Units/L ALT 15 (0-55) Units/L Alkaline Phosphatase 109 (38-126) Units/L Albumin 2.5 L (3.5-5.0) g/dL - ABG Interpretation ABG results: PT/INR, D-dimer PT 13.0 Seconds (9.4-12.1) H 01/10/17 04:34 - Impressions Impressions Echocardiogram 01/11/17 14:33 Impressions: LVEF 60%. Normal LV chamber size and function. Mild concentric left ventricular hypertrophy. Atypical septal motion consistent with bundle branch block. Mild left ventricular diastolic dysfunction. Grossly, the right ventricle appears dilated with normal function. Moderate-severe pulmonary hypertension. No obvious significant valvular dysfunction. Findings: Study Quality * Technically adequate exam. * Technically sub-optimal due to COPD. ECG Findings * Normal sinus rhythm. * Sinus rhythm with BBB. Left Ventricle * LVEF 60%. * Normal LV chamber size and function. * Mild concentric left ventricular hypertrophy. * Atypical septal motion consistent with bundle branch block. * Mild left ventricular diastolic dysfunction. Right Ventricle * Grossly, the right ventricle appears dilated with normal function. Left Atrium * Severely dilated left atrium. Right Atrium * Mildly dilated right atrium. Interatrial Septum * Interatrial septum not well evaluated. Aortic Valve * Aortic valve not well visualized. The number of leaflets cannot be determined. * Grossly, mildly calcified aortic valve leaflets. * No aortic regurgitation. * No aortic stenosis. Mitral Valve * Normal mitral valve structure and function. * No mitral regurgitation. * No mitral stenosis. Tricuspid Valve * Normal tricuspid valve structure and function. * Trace tricuspid regurgitation. * Moderate-severe pulmonary hypertension. * Estimated RVSP is 53-58 mmHg. * Estimated RA pressure is 5-10 mmHg. Pulmonic Valve * Pulmonic valve not well visualized. * No pulmonic regurgitation. Aorta * Normally sized aortic root. Pericardium * The pericardium appears normal. IVC * The IVC is dilated. * < 50% respiratory change. Pulmonary Artery * Normal visualized portions of the main pulmonary artery. Consult Discharge Plan - Plan [facility]errals: [facility] [Primary Care Provider] - Rebecca Munoz [Family Provider] -
[2017-01-11] MEDS: Heparin 25,000 UNIT/500 ML D5W 25,000 UNIT/500 ML MLS IVC SCH (22:16)
[2017-01-12] MEDS: Piperacillin/Tazobactam 3.375 GM in 0.9 % Sodium Chloride Mini Bag 100 ML IVPB SCH ×3 (00:30→16:30)
--- NOTE | 2017-01-12 01:59 | Event Note ---
Date of Encounter: 01/12/17 Time of Encounter: 21:15 At about 21:15 a vascular tech reported to me that a lower extremity venous dopper done on this patient was positive for DVT in right distal PTV. I reviewed the patient's history of present illness, labs, and orders. I ordered a PTT and called pharmacy to start heparin on this patient. Her nurse was informed and I informed my attending via Vocera of the new findings. I examined the patient myself and found that the the right extremity had tenderness, edema, pedal pulses present.
[2017-01-12] MEDS: *HR* Morphine 2 MG/ML SYRINGE IVP PRN ×2 (04:41→18:35)
[2017-01-12 05:14] LABS: Basophils # 0.1 K/mcL (0.0-0.2); Basophils % 0.6 %; Eosinophils # 0.4 K/mcL (0.0-0.6); Eosinophils % 3.7 %; Hematocrit 47.1 % (37.5-50.1); Hemoglobin 15.3 g/dL (12.9-16.9); Immature Granulocytes % 0.7 % (0-4); Lymphocytes # 1.4 K/mcL (0.6-4.6); Lymphocytes % 13.5 %; Mean Corpuscular HGB Conc 32.5 g/dL (31.6-35.5); Mean Corpuscular Hemoglobin 32.1 pg (28.0-33.3); Mean Corpuscular Volume 98.7 fL (83.0-100.0); Mean Platelet Volume 12.2 fL (9.4-12.4); Monocytes # 0.9 K/mcL (0.0-1.3); Monocytes % 8.7 %; Neutrophils # 7.5 K/mcL (1.6-8.9); Platelet Count 176 K/mcL (140-400); Red Blood Count 4.77 M/mcL (4.19-5.50); Red Cell Distribution Width 13.8 % (11.5-14.5); Segmented Neutrophils % 72.8 %
[2017-01-12] MEDS: Miconazole 2% ointment 114 GM TUBE TP SCH ×2 (05:17→05:19)
[2017-01-12 05:26] LABS: Alanine Aminotransferase 16 Units/L (0-55); Albumin 2.3 g/dL (3.5-5.0); Albumin/Globulin Ratio 0.6 (1.1-2.2); Alkaline Phosphatase 93 Units/L (38-126); Aspartate Amino Transferase 24 Units/L (5-34); BUN/Creatinine Ratio 12 (6-26); Bilirubin,Total 0.7 mg/dL (0.2-1.2); Blood Urea Nitrogen 13 mg/dL (8-26); Calcium 8.2 mg/dL (8.6-10.8); Carbon Dioxide 29 mEq/L (19-29); Chloride 100 mEq/L (98-109); Globulin 3.7 g/dL (2.4-3.5); Glucose 99 mg/dL (70-99); Osmolality,Calculated 282 (280-300); Potassium 3.6 mEq/L (3.5-4.5); Sodium 136 mEq/L (136-145); eGFR For African Americans > 60 (> 60); eGFR For Non-African Americans > 60 (> 60)
--- NOTE | 2017-01-12 07:15 | Urology Progress Note ---
Date of Encounter: 01/12/17 Time of Encounter: 07:13 - Assessment and Plan (1) Cellulitis of scrotum Current Visit: Yes Status: Acute Assessment and plan: not examined this am. resolving yesterday. continue with scrotal elevation and desitin barrier ointment. patient can f/u with urology as needed. call with questions. Progress Note Narrative: patient seen. sleeping this am. Objective Initial Vital Signs Temp Pulse Resp BP Pulse Ox 97.1 F L 76 20 164/90 97 01/09/17 19:04 01/09/17 19:04 01/09/17 19:04 01/09/17 19:04 01/09/17 19:04 - General physical appearance Present: well developed - Respiratory Present: normal respiratory effort - Labs 01/12/17 05:00 01/12/17 05:00 Diabetes panel 01/11/17 01/12/17 Range/Units 07:15 05:00 Sodium 135 L 136 (136-145) mEq/L Potassium 3.6 3.6 (3.5-4.5) mEq/L Chloride 97 L 100 (98-109) mEq/L Carbon Dioxide 29 29 (19-29) mEq/L BUN 11 13 (8-26) mg/dL Creatinine 0.95 1.07 (0.72-1.25) mg/dL Glucose 70 99 (70-99) mg/dL Calcium 8.6 8.2 L (8.6-10.8) mg/dL AST 27 24 (5-34) Units/L ALT 15 16 (0-55) Units/L Alkaline Phosphatase 109 93 (38-126) Units/L Albumin 2.5 L 2.3 L (3.5-5.0) g/dL Calcium panel 01/11/17 01/12/17 Range/Units 07:15 05:00 Calcium 8.6 8.2 L (8.6-10.8) mg/dL Albumin 2.5 L 2.3 L (3.5-5.0) g/dL Pituitary panel 01/11/17 01/12/17 Range/Units 07:15 05:00 Sodium 135 L 136 (136-145) mEq/L Potassium 3.6 3.6 (3.5-4.5) mEq/L Chloride 97 L 100 (98-109) mEq/L Carbon Dioxide 29 29 (19-29) mEq/L BUN 11 13 (8-26) mg/dL Creatinine 0.95 1.07 (0.72-1.25) mg/dL Glucose 70 99 (70-99) mg/dL Calcium 8.6 8.2 L (8.6-10.8) mg/dL Adrenal panel 01/11/17 01/12/17 Range/Units 07:15 05:00 Sodium 135 L 136 (136-145) mEq/L Potassium 3.6 3.6 (3.5-4.5) mEq/L Chloride 97 L 100 (98-109) mEq/L Carbon Dioxide 29 29 (19-29) mEq/L BUN 11 13 (8-26) mg/dL Creatinine 0.95 1.07 (0.72-1.25) mg/dL Glucose 70 99 (70-99) mg/dL Calcium 8.6 8.2 L (8.6-10.8) mg/dL Total Bilirubin 1.0 0.7 (0.2-1.2) mg/dL AST 27 24 (5-34) Units/L ALT 15 16 (0-55) Units/L Alkaline Phosphatase 109 93 (38-126) Units/L Albumin 2.5 L 2.3 L (3.5-5.0) g/dL Consult Discharge Plan - Plan Referrals: [facility] [Primary Care Provider] - Rebecca Munoz [Family Provider] -
[2017-01-12] MEDS: Propylene Glycol/Peg 400 [Systane 0.3-0.4% Eye Drops] OP SCH ×4 (08:42→21:48)
[2017-01-12] MEDS: Furosemide 40 MG/4 ML VIAL IVP SCH ×2 (08:52→16:29)
[2017-01-12] MEDS: Lisinopril 20 MG TABLET PO SCH (08:54)
[2017-01-12] MEDS: Desitin (Zinc Oxide) 56 GM TUBE TP SCH ×2 (08:54→21:48)
[2017-01-12] MEDS: Lidocaine OINT 35.44 GM TUBE TP SCH ×4 (08:54→21:50)
[2017-01-12] MEDS: Gabapentin 100 MG CAPSULE PO SCH ×3 (08:55→21:46)
[2017-01-12] MEDS: Famotidine 20 MG TABLET PO SCH (08:55)
[2017-01-12] MEDS: Heparin 25,000 UNIT/500 ML D5W 25,000 UNIT/500 ML MLS IVC SCH (13:20)
--- NOTE | 2017-01-12 17:12 | Internal Med Progress Note ---
Date of Encounter: 01/12/17 Time of Encounter: 17:09 - Assessment and plan (1) Bilateral lower extremity edema Current Visit: Yes Status: Acute Assessment and plan: Asymmetric lower extremities swelling order Doppler ultrasound of legs (2) Cellulitis of scrotum Current Visit: Yes Status: Acute Assessment and plan: Improving with dot cream (3) Cellulitis of right leg Current Visit: Yes Status: Acute Assessment and plan: IV Zosyn and vancomycin (4) Morbid obesity Current Visit: Yes Status: Acute (5) Hypertension Current Visit: Yes Status: Chronic Qualifiers: Hypertension type: essential hypertension Qualified Code(s): I10 - Essential (primary) hypertension - Subjective Interval history: Admitted for lower extremity cellulitis and scrotal cellulitis. On IV Vanco and Zosyn. Urology thinks this could be due to skin irritation and a morbidly obese male. Desitin cream prescribed. Patient is concerned about leg swelling and redness. Examined ; it appears he has severe bilateral lower extremity edema with the stasis dermatitis as well as some skin vesicles due to edema. Iodoform dressing with wet and dry dressing daily pressure wrap and SCD prescribed. Increase Lasix to 40 IV twice a day follow CBC CMP magnesium. Order an echocardiogram. Suspect severe pulmonary hypertension/right sided heart failure 01/11 asymptomatic. Diuresing well. Asymmetric leg edema noted. Ordering leg ultrasound to rule out DVT. Bilateral leg redness suspect chronic venous stasis dermatitis may have superimposed infection currently on IV vancomycin and Zosyn. Bilateral scrotal edema and redness and urology thinks that this may be due to irritation and Desitin cream was prescribed. Definite improvement in coloration. Significant lower body edema to diurese him. Echocardiogram and ultrasound of lower extremity pending 01/12 diuresing well. Overall improving. Plan to discharge today however patient wants to leave on Saturday. I put a discharge summary in no medication and when he agrees he can be discharged. Currently on vancomycin and Zosyn. Urology is recommending scrotal elevation and his skin care with Desitin cream - Constitutional Vitals: Temp Pulse Resp BP Pulse Ox 97.6 F 69 18 145/77 93 01/12/17 15:33 01/12/17 15:33 01/12/17 15:33 01/12/17 15:33 01/12/17 15:33 General appearance: Present: cooperative, A&O X 3, morbidly obese, pleasant, no acute distress, answers questions appropriately - Head Head exam: Present: atraumatic, normocephalic - Eye Eye exam: Present: PERRL, conjuntiva pink, sclera anicteric Pupils: Present: PERRL - Neck Neck exam general surgery: Present: supple, trachea midline. Absent: lymphadenopathy - Respiratory Respiratory exam: Present: CTAB. Absent: accessory muscle use, rales, rhonchi, wheezes - Cardiovascular Cardiovascular exam: Present: RRR, +S1, +S2. Absent: diastolic murmur, gallop, rubs, systolic murmur - GI/Abdominal GI/Abdominal exam: Present: normal bowel sounds, soft, no peritoneal signs. Absent: distended, tenderness - Additional comments: Scrotal area is improving - Extremities Exam Extremities exam: Present: warm, radial pulses palpable and symmetrical. Absent : calf tenderness, cyanotic, pedal edema Additional comments: Leg redness is improving - Neurological Exam Neurological exam: Present: CN II-XII intact, oriented X3, no focal deficits. Absent: pronater drift, facial droop, speech deficit - Skin Skin exam: Present: dry, intact Internal Medicine: Result - Labs CBC & Chem 7: 01/12/17 05:00 01/12/17 05:00 Labs: Short CBC 01/12/17 Range/Units 05:00 WBC 10.3 (4.3-11.1) K/mcL Hgb 15.3 (12.9-16.9) g/dL Hct 47.1 (37.5-50.1) % Plt Count 176 (140-400) K/mcL Neutrophils # 7.5 (1.6-8.9) K/mcL BMP 01/12/17 05:00 Sodium 136 Potassium 3.6 Chloride 100 Carbon Dioxide 29 BUN 13 Creatinine 1.07 Glucose 99 Calcium 8.2 L Liver Function 01/12/17 Range/Units 05:00 Total Bilirubin 0.7 (0.2-1.2) mg/dL AST 24 (5-34) Units/L ALT 16 (0-55) Units/L Alkaline Phosphatase 93 (38-126) Units/L Albumin 2.3 L (3.5-5.0) g/dL - ABG Interpretation ABG results: PT/INR, D-dimer PT 13.0 Seconds (9.4-12.1) H 01/10/17 04:34 Consult Discharge Plan - Plan [facility]errals: [facility] [Primary Care Provider[facility] - Rebecca Munoz [Family Provider] -
[2017-01-12] MEDS: Vancomycin 1,750 MG in D5% in Water 500 ML IVPB SCH (17:52)
[2017-01-12] MEDS: Vancomycin 1,500 MG in D5% in Water 250 ML IVPB SCH (19:20)
[2017-01-12] MEDS: PEG OP SCH (19:20)
[2017-01-12] MEDS: PROPYLENE GLYCOL OP SCH (19:20)
[2017-01-12] MEDS: Cyanocobalamin (B-12) 1,000 MCG TABLET PO SCH (21:46)
[2017-01-12] MEDS: Folic Acid 1 MG TABLET PO SCH (21:46)
[2017-01-12] MEDS: Cholecalciferol (D-3) 1,000 UNIT TABLET PO SCH (21:46)
[2017-01-13] MEDS: Piperacillin/Tazobactam 3.375 GM in 0.9 % Sodium Chloride Mini Bag 100 ML IVPB SCH ×3 (00:37→16:50)
[2017-01-13 03:15] LABS: Alanine Aminotransferase 17 Units/L (0-55); Albumin 2.3 g/dL (3.5-5.0); Albumin/Globulin Ratio 0.6 (1.1-2.2); Alkaline Phosphatase 92 Units/L (38-126); Aspartate Amino Transferase 24 Units/L (5-34); BUN/Creatinine Ratio 11 (6-26); Bilirubin,Total 0.6 mg/dL (0.2-1.2); Blood Urea Nitrogen 11 mg/dL (8-26); Calcium 8.2 mg/dL (8.6-10.8); Carbon Dioxide 29 mEq/L (19-29); Chloride 99 mEq/L (98-109); Globulin 3.6 g/dL (2.4-3.5); Glucose 96 mg/dL (70-99); Osmolality,Calculated 281 (280-300); Potassium 3.5 mEq/L (3.5-4.5); Sodium 136 mEq/L (136-145); Total Protein 5.9 g/dL (6.0-8.3); eGFR For African Americans > 60 (> 60); eGFR For Non-African Americans > 60 (> 60)
[2017-01-13 03:36] LABS: Basophils % 0.4 %; Eosinophils # 0.4 K/mcL (0.0-0.6); Eosinophils % 4.6 %; Hematocrit 47.3 % (37.5-50.1); Hemoglobin 15.3 g/dL (12.9-16.9); Immature Granulocytes % 0.5 % (0-4); Lymphocytes # 1.5 K/mcL (0.6-4.6); Lymphocytes % 16.6 %; Mean Corpuscular HGB Conc 32.3 g/dL (31.6-35.5); Mean Corpuscular Hemoglobin 32.1 pg (28.0-33.3); Mean Corpuscular Volume 99.4 fL (83.0-100.0); Mean Platelet Volume 12.6 fL (9.4-12.4); Monocytes # 0.9 K/mcL (0.0-1.3); Monocytes % 9.7 %; Neutrophils # 6.3 K/mcL (1.6-8.9); Platelet Count 183 K/mcL (140-400); Red Blood Count 4.76 M/mcL (4.19-5.50); Red Cell Distribution Width 13.9 % (11.5-14.5); Segmented Neutrophils % 68.2 %
[2017-01-13] MEDS: Miconazole 2% ointment 114 GM TUBE TP SCH (03:51)
[2017-01-13] MEDS: Heparin 25,000 UNIT/500 ML D5W 25,000 UNIT/500 ML MLS IVC SCH ×2 (05:07→21:48)
[2017-01-13] MEDS: Furosemide 40 MG/4 ML VIAL IVP SCH ×2 (07:49→16:52)
[2017-01-13] MEDS: Lidocaine OINT 35.44 GM TUBE TP SCH ×4 (07:50→21:30)
[2017-01-13] MEDS: Desitin (Zinc Oxide) 56 GM TUBE TP SCH ×2 (07:50→21:30)
[2017-01-13] MEDS: Gabapentin 100 MG CAPSULE PO SCH ×3 (07:51→21:29)
[2017-01-13] MEDS: Famotidine 20 MG TABLET PO SCH (07:52)
[2017-01-13] MEDS: Lisinopril 20 MG TABLET PO SCH (07:52)
[2017-01-13] MEDS: Propylene Glycol/Peg 400 [Systane 0.3-0.4% Eye Drops] OP SCH ×4 (07:52→21:30)
[2017-01-13] MEDS: *HR* Morphine 2 MG/ML SYRINGE IVP PRN ×2 (12:28→18:58)
--- NOTE | 2017-01-13 16:42 | Internal Med Progress Note ---
Date of Encounter: 01/13/17 Time of Encounter: 16:40 - Assessment and plan (1) Bilateral lower extremity edema Current Visit: Yes Status: Acute Assessment and plan: Asymmetric lower extremities swelling order Doppler ultrasound of legs (2) Cellulitis of scrotum Current Visit: Yes Status: Acute Assessment and plan: Improving with dot cream (3) Cellulitis of right leg Current Visit: Yes Status: Acute Assessment and plan: IV Zosyn and vancomycin (4) Morbid obesity Current Visit: Yes Status: Acute (5) Hypertension Current Visit: Yes Status: Chronic Qualifiers: Hypertension type: essential hypertension Qualified Code(s): I10 - Essential (primary) hypertension (6) Weakness of both lower extremities Current Visit: Yes Status: Acute Assessment and plan: Complaining of chronic bilateral lower extremity weakness which has not been evaluated before order MRI thoracolumbar and sacral spine without contrast PT/ OT evaluation - Subjective Interval history: Admitted for lower extremity cellulitis and scrotal cellulitis. On IV Vanco and Zosyn. Urology thinks this could be due to skin irritation and a morbidly obese male. Desitin cream prescribed. Patient is concerned about leg swelling and redness. Examined ; it appears he has severe bilateral lower extremity edema with the stasis dermatitis as well as some skin vesicles due to edema. Iodoform dressing with wet and dry dressing daily pressure wrap and SCD prescribed. Increase Lasix to 40 IV twice a day follow CBC CMP magnesium. Order an echocardiogram. Suspect severe pulmonary hypertension/right sided heart failure 01/11 asymptomatic. Diuresing well. Asymmetric leg edema noted. Ordering leg ultrasound to rule out DVT. Bilateral leg redness suspect chronic venous stasis dermatitis may have superimposed infection currently on IV vancomycin and Zosyn. Bilateral scrotal edema and redness and urology thinks that this may be due to irritation and Desitin cream was prescribed. Definite improvement in coloration. Significant lower body edema to diurese him. Echocardiogram and ultrasound of lower extremity pending 01/12 diuresing well. Overall improving. Plan to discharge today however patient wants to leave on Saturday. I put a discharge summary in no medication and when he agrees he can be discharged. Currently on vancomycin and Zosyn. Urology is recommending scrotal elevation and his skin care with Desitin cream 01/13 overall improving however complain that he is not able to walk for quite some time and his doctors have not checked him out at [place]. I examined his lower extremity and he has proximal weakness but again causes not known. He did have multiple falls in the past. I will order MRI thoracolumbar and sacral spine without contrast and order physical therapy and occupational therapy consult. Family is requesting mcc placement therefore social media specialist will be contacted in the morning. As well as his infection is concerned it is improving - Constitutional Vitals: Temp Pulse Resp BP Pulse Ox 98.3 F 72 19 123/73 94 01/13/17 16:34 01/13/17 16:34 01/13/17 16:34 01/13/17 16:34 01/13/17 16:34 General appearance: Present: cooperative, A&O X 3, morbidly obese, pleasant, no acute distress, answers questions appropriately - Head Head exam: Present: atraumatic, normocephalic - Eye Eye exam: Present: PERRL, conjuntiva pink, sclera anicteric Pupils: Present: PERRL - Neck Neck exam general surgery: Present: supple, trachea midline. Absent: lymphadenopathy - Respiratory Respiratory exam: Present: CTAB. Absent: accessory muscle use, rales, rhonchi, wheezes - Cardiovascular Cardiovascular exam: Present: RRR, +S1, +S2. Absent: diastolic murmur, gallop, rubs, systolic murmur - GI/Abdominal GI/Abdominal exam: Present: normal bowel sounds, soft, no peritoneal signs. Absent: distended, tenderness - Extremities Exam Extremities exam: Present: warm, radial pulses palpable and symmetrical. Absent : calf tenderness, cyanotic, pedal edema - Neurological Exam Neurological exam: Present: CN II-XII intact, oriented X3. Absent: pronater drift, facial droop, speech deficit Additional comments: Bilateral lower extremity proximal weakness 4over 5 - Skin Skin exam: Present: dry, intact Internal Medicine: Result - Labs CBC & Chem 7: 01/13/17 02:53 01/13/17 02:53 Labs: Short CBC 01/13/17 Range/Units 02:53 WBC 9.3 (4.3-11.1) K/mcL Hgb 15.3 (12.9-16.9) g/dL Hct 47.3 (37.5-50.1) % Plt Count 183 (140-400) K/mcL Neutrophils # 6.3 (1.6-8.9) K/mcL BMP 01/13/17 02:53 Sodium 136 Potassium 3.5 Chloride 99 Carbon Dioxide 29 BUN 11 Creatinine 1.04 Glucose 96 Calcium 8.2 L Liver Function 01/13/17 Range/Units 02:53 Total Bilirubin 0.6 (0.2-1.2) mg/dL AST 24 (5-34) Units/L ALT 17 (0-55) Units/L Alkaline Phosphatase 92 (38-126) Units/L Albumin 2.3 L (3.5-5.0) g/dL - ABG Interpretation ABG results: PT/INR, D-dimer PT 13.0 Seconds (9.4-12.1) H 01/10/17 04:34 Consult Discharge Plan - Plan [facility]errals: [facility] [Primary Care Provider] - Rebecca Munoz [Family Provider] -
[2017-01-13] MEDS: Vancomycin 1,750 MG in D5% in Water 500 ML IVPB SCH (17:48)
[2017-01-13] MEDS: Cholecalciferol (D-3) 1,000 UNIT TABLET PO SCH (21:28)
[2017-01-13] MEDS: Cyanocobalamin (B-12) 1,000 MCG TABLET PO SCH (21:29)
[2017-01-13] MEDS: Folic Acid 1 MG TABLET PO SCH (21:29)
[2017-01-14] MEDS: Piperacillin/Tazobactam 3.375 GM in 0.9 % Sodium Chloride Mini Bag 100 ML IVPB SCH ×4 (01:06→23:58)
[2017-01-14] MEDS: Heparin 25,000 UNIT/500 ML D5W 25,000 UNIT/500 ML MLS IVC SCH (05:03)
[2017-01-14 05:42] LABS: Basophils # 0.1 K/mcL (0.0-0.2); Basophils % 0.6 %; Eosinophils # 0.5 K/mcL (0.0-0.6); Eosinophils % 5.9 %; Hemoglobin 15.4 g/dL (12.9-16.9); Lymphocytes # 1.5 K/mcL (0.6-4.6); Lymphocytes % 17.1 %; Mean Corpuscular HGB Conc 32.8 g/dL (31.6-35.5); Mean Corpuscular Hemoglobin 32.5 pg (28.0-33.3); Mean Corpuscular Volume 99.2 fL (83.0-100.0); Mean Platelet Volume 12.7 fL (9.4-12.4); Monocytes # 0.8 K/mcL (0.0-1.3); Monocytes % 9.6 %; Neutrophils # 5.6 K/mcL (1.6-8.9); Platelet Count 168 K/mcL (140-400); Red Blood Count 4.74 M/mcL (4.19-5.50); Red Cell Distribution Width 13.8 % (11.5-14.5); Segmented Neutrophils % 65.8 %
[2017-01-14 05:58] LABS: Alanine Aminotransferase 20 Units/L (0-55); Albumin 2.4 g/dL (3.5-5.0); Albumin/Globulin Ratio 0.6 (1.1-2.2); Alkaline Phosphatase 85 Units/L (38-126); Aspartate Amino Transferase 24 Units/L (5-34); BUN/Creatinine Ratio 8 (6-26); Bilirubin,Total 0.6 mg/dL (0.2-1.2); Blood Urea Nitrogen 9 mg/dL (8-26); Calcium 8.4 mg/dL (8.6-10.8); Carbon Dioxide 30 mEq/L (19-29); Chloride 99 mEq/L (98-109); Globulin 3.7 g/dL (2.4-3.5); Glucose 91 mg/dL (70-99); Osmolality,Calculated 282 (280-300); Potassium 3.3 mEq/L (3.5-4.5); Sodium 137 mEq/L (136-145); Total Protein 6.1 g/dL (6.0-8.3); eGFR For African Americans > 60 (> 60); eGFR For Non-African Americans > 60 (> 60)
[2017-01-14] MEDS: Miconazole 2% ointment 114 GM TUBE TP SCH (06:17)
[2017-01-14] MEDS: *HR* Morphine 2 MG/ML SYRINGE IVP PRN ×3 (08:52→23:57)
[2017-01-14] MEDS: Furosemide 40 MG/4 ML VIAL IVP SCH (08:52)
[2017-01-14] MEDS: Desitin (Zinc Oxide) 56 GM TUBE TP SCH ×2 (08:56→21:50)
[2017-01-14] MEDS: Lisinopril 20 MG TABLET PO SCH (08:56)
[2017-01-14] MEDS: Lidocaine OINT 35.44 GM TUBE TP SCH ×4 (08:56→21:49)
[2017-01-14] MEDS: Gabapentin 100 MG CAPSULE PO SCH ×3 (08:56→21:49)
[2017-01-14] MEDS: Famotidine 20 MG TABLET PO SCH (08:56)
[2017-01-14] MEDS: Propylene Glycol/Peg 400 [Systane 0.3-0.4% Eye Drops] OP SCH ×4 (08:58→21:51)
[2017-01-14] MEDS ORDERED: Aminoglycoside Consult 1 EACH MC ONE (09:05)
[2017-01-14] MEDS ORDERED: *HR* LORazepam 2 MG/ML VIAL IVP ONE (15:28)
--- NOTE | 2017-01-14 16:16 | Internal Med Progress Note ---
Date of Encounter: 01/14/17 Time of Encounter: 16:13 - Assessment and plan (1) Bilateral lower extremity edema Current Visit: Yes Status: Acute Assessment and plan: Asymmetric lower extremities swelling order Doppler ultrasound of legs Showed DVT. He also has Pulmonary HTN on Echo. That is the cause of dependent edema. (2) Cellulitis of scrotum Current Visit: Yes Status: Acute Assessment and plan: Improving with dot cream (3) Cellulitis of right leg Current Visit: Yes Status: Acute Assessment and plan: Less and less convinced if he has cellulitis, dc Vanc, continue Zosyn , may swith to Augmentin later. (4) Morbid obesity Current Visit: Yes Status: Acute (5) Hypertension Current Visit: Yes Status: Chronic Qualifiers: Hypertension type: essential hypertension Qualified Code(s): I10 - Essential (primary) hypertension (6) Weakness of both lower extremities Current Visit: Yes Status: Acute Assessment and plan: Complaining of chronic bilateral lower extremity weakness which has not been evaluated before. order MRI thoracolumbar and sacral spine without contrast PT/OT evaluation (7) DVT (deep venous thrombosis) Current Visit: Yes Status: Acute Assessment and plan: Right popleteal DVT , new, started on heparin last night, today switch to Eliquis 10 BID starting dose. Risk / Complication/ Treatment opitons d/w patient. Patient has hx of fall. Awaiting PT for risk assesement. He is from [place]. Probably should spend whole 6 months in [facility]. Qualifiers: DVT location: lower extremity Affected thrombotic vein of extremity: popliteal Chronicity: acute Laterality: right Qualified Code(s): I82.431 - Acute embolism and thrombosis of right popliteal vein - Subjective Interval history: Admitted for lower extremity cellulitis and scrotal cellulitis. On IV Vanco and Zosyn. Urology thinks this could be due to skin irritation and a morbidly obese male. Desitin cream prescribed. Patient is concerned about leg swelling and redness. Examined ; it appears he has severe bilateral lower extremity edema with the stasis dermatitis as well as some skin vesicles due to edema. Iodoform dressing with wet and dry dressing daily pressure wrap and SCD prescribed. Increase Lasix to 40 IV twice a day follow CBC CMP magnesium. Order an echocardiogram. Suspect severe pulmonary hypertension/right sided heart failure 01/11 asymptomatic. Diuresing well. Asymmetric leg edema noted. Ordering leg ultrasound to rule out DVT. Bilateral leg redness suspect chronic venous stasis dermatitis may have superimposed infection currently on IV vancomycin and Zosyn. Bilateral scrotal edema and redness and urology thinks that this may be due to irritation and Desitin cream was prescribed. Definite improvement in coloration. Significant lower body edema to diurese him. Echocardiogram and ultrasound of lower extremity pending 01/12 diuresing well. Overall improving. Plan to discharge today however patient wants to leave on Saturday. I put a discharge summary in no medication and when he agrees he can be discharged. Currently on vancomycin and Zosyn. Urology is recommending scrotal elevation and his skin care with Desitin cream 01/13 overall improving however complain that he is not able to walk for quite some time and his doctors have not checked him out at [place]. I examined his lower extremity and he has proximal weakness but again causes not known. He did have multiple falls in the past. I will order MRI thoracolumbar and sacral spine without contrast and order physical therapy and occupational therapy consult. Family is requesting fpc placement therefore older adult social work specialist will be contacted in the morning. As well as his infection is concerned it is improving - Constitutional Vitals: Temp Pulse Resp BP Pulse Ox 97.5 F L 76 16 181/82 92 01/14/17 15:34 01/14/17 15:34 01/14/17 15:34 01/14/17 15:34 01/14/17 15:34 General appearance: Present: cooperative, A&O X 3, morbidly obese, pleasant, no acute distress, answers questions appropriately Internal Medicine: Result - Labs CBC & Chem 7: 01/14/17 04:59 01/14/17 04:59 Labs: Short CBC 01/14/17 Range/Units 04:59 WBC 8.6 (4.3-11.1) K/mcL Hgb 15.4 (12.9-16.9) g/dL Hct 47.0 (37.5-50.1) % Plt Count 168 (140-400) K/mcL Neutrophils # 5.6 (1.6-8.9) K/mcL BMP 01/14/17 04:59 Sodium 137 Potassium 3.3 L Chloride 99 Carbon Dioxide 30 H BUN 9 Creatinine 1.06 Glucose 91 Calcium 8.4 L Liver Function 01/14/17 Range/Units 04:59 Total Bilirubin 0.6 (0.2-1.2) mg/dL AST 24 (5-34) Units/L ALT 20 (0-55) Units/L Alkaline Phosphatase 85 (38-126) Units/L Albumin 2.4 L (3.5-5.0) g/dL - ABG Interpretation ABG results: PT/INR, D-dimer PT 13.0 Seconds (9.4-12.1) H 01/10/17 04:34 Consult Discharge Plan - Plan [facility]errals: [facility] [Primary Care Provider] - Rebecca Munoz [Family Provider] -
[2017-01-14] MEDS: Folic Acid 1 MG TABLET PO SCH (21:48)
[2017-01-14] MEDS: Cyanocobalamin (B-12) 1,000 MCG TABLET PO SCH (21:48)
[2017-01-14] MEDS: APIXABAN 5 MG TABLET PO SCH (21:49)
[2017-01-14] MEDS: Cholecalciferol (D-3) 1,000 UNIT TABLET PO SCH (21:49)
[2017-01-14] MEDS: Furosemide 40 MG TABLET PO SCH (23:15)
[2017-01-15 06:42] LABS: Basophils % 0.5 %; Eosinophils # 0.5 K/mcL (0.0-0.6); Eosinophils % 5.2 %; Hematocrit 47.2 % (37.5-50.1); Hemoglobin 15.8 g/dL (12.9-16.9); Immature Granulocytes % 0.7 % (0-4); Lymphocytes # 1.1 K/mcL (0.6-4.6); Lymphocytes % 12.2 %; Mean Corpuscular HGB Conc 33.5 g/dL (31.6-35.5); Mean Corpuscular Hemoglobin 32.6 pg (28.0-33.3); Mean Corpuscular Volume 97.5 fL (83.0-100.0); Mean Platelet Volume 12.8 fL (9.4-12.4); Monocytes # 0.9 K/mcL (0.0-1.3); Monocytes % 9.8 %; Neutrophils # 6.3 K/mcL (1.6-8.9); Platelet Count 190 K/mcL (140-400); Red Blood Count 4.84 M/mcL (4.19-5.50); Red Cell Distribution Width 13.8 % (11.5-14.5); Segmented Neutrophils % 71.6 %
[2017-01-15 06:53] LABS: BUN/Creatinine Ratio 8 (6-26); Blood Urea Nitrogen 8 mg/dL (8-26); Carbon Dioxide 28 mEq/L (19-29); Chloride 100 mEq/L (98-109); Glucose 85 mg/dL (70-99); Potassium 3.9 mEq/L (3.5-4.5); Sodium 138 mEq/L (136-145); eGFR For African Americans > 60 (> 60); eGFR For Non-African Americans > 60 (> 60)
[2017-01-15 06:54] LABS: Alanine Aminotransferase 19 Units/L (0-55); Albumin 2.4 g/dL (3.5-5.0); Albumin/Globulin Ratio 0.6 (1.1-2.2); Alkaline Phosphatase 94 Units/L (38-126); Aspartate Amino Transferase 25 Units/L (5-34); Bilirubin,Total 0.7 mg/dL (0.2-1.2); Calcium 8.7 mg/dL (8.6-10.8); Osmolality,Calculated 284 (280-300); Total Protein 6.4 g/dL (6.0-8.3)
[2017-01-15] MEDS ORDERED: Piperacillin/Tazobactam 3.375 GM/200 ML BAG IVPB SCH (09:00)
[2017-01-15] MEDS: Gabapentin 100 MG CAPSULE PO SCH ×2 (09:39→16:21)
[2017-01-15] MEDS: Lisinopril 20 MG TABLET PO SCH (09:40)
[2017-01-15] MEDS: Famotidine 20 MG TABLET PO SCH (09:40)
[2017-01-15] MEDS: Desitin (Zinc Oxide) 56 GM TUBE TP SCH (09:40)
[2017-01-15] MEDS: APIXABAN 5 MG TABLET PO SCH (09:40)
[2017-01-15] MEDS: Lidocaine OINT 35.44 GM TUBE TP SCH ×2 (09:41→13:20)
[2017-01-15] MEDS: Miconazole 2% ointment 114 GM TUBE TP SCH (09:42)
[2017-01-15] MEDS: Furosemide 40 MG TABLET PO SCH (10:18)
[2017-01-15] MEDS: Propylene Glycol/Peg 400 [Systane 0.3-0.4% Eye Drops] OP SCH ×2 (10:19→13:20)
[2017-01-15] MEDS: *HR* Morphine 2 MG/ML SYRINGE IVP PRN (11:27)
[2017-01-15 12:40] VITALS: BP 164/89
--- NOTE | 2017-01-15 14:40 | Internal Med Progress Note ---
Date of Encounter: 01/15/17 Time of Encounter: 10:30 - Assessment and plan (1) Cellulitis of scrotum Current Visit: Yes Status: Acute Assessment and plan: Improving with dot cream and empirical abx (2) Cellulitis of right leg Current Visit: Yes Status: Acute Assessment and plan: Improved Cont local care More like venous stasis changes cont [place] wraps switched to PO Abx Augmentin (3) Morbid obesity Current Visit: Yes Status: Acute Assessment and plan: counseled to loose weight (4) Hypertension Current Visit: Yes Status: Chronic Assessment and plan: stable with current regimen Qualifiers: Hypertension type: essential hypertension Qualified Code(s): I10 - Essential (primary) hypertension (5) Bilateral lower extremity edema Current Visit: Yes Status: Acute Assessment and plan: mostly venous stasis cont [place] wraps keep legs elevated cont PO Lasix (6) Weakness of both lower extremities Current Visit: Yes Status: Acute Assessment and plan: Cmostly due to physical deconditioning due to his morbid obesity, he is high risk for spinal stenosis / disc prolapse pt refused to go for MRI / further work up recommend to f/u as an out pt PT / OT eval now (7) DVT (deep venous thrombosis) Current Visit: Yes Status: Acute Assessment and plan: Rt posterior tibial DVT on Eliquis 10mg BID # 2/ then continue 5mg BID Qualifiers: DVT location: lower extremity Affected thrombotic vein of extremity: popliteal Chronicity: acute Laterality: right Qualified Code(s): I82.431 - Acute embolism and thrombosis of right popliteal vein (8) Physical deconditioning Current Visit: Yes Status: Acute Assessment and plan: Need ECF placement for short term rehab medically stable to d/c to ECF.. waiting on PT / OT eval, SW assessment - Subjective Interval history: Mr. Rodriguez is a 76 year old male with past medical history of hypertension, BPH , chronic leg edema bilateral, peripheral neuropathy and restless legs. He presents to the ED with complaints of scrotal swelling and pain. He was placed on empirical abx with Zosyn. For his b/l LE swelling , Rt leg celulities, he did have venous doppler which showed Rt leg posterior tibial DVT. Currently he was placed on Eliquis for anticoag. He is alert, awake and O x 3. denied any CP / SOB. His b/l LE weakness also better now. - Constitutional Vitals: Temp Pulse Resp BP Pulse Ox 98 F 74 16 164/89 94 01/15/17 12:38 01/15/17 12:38 01/15/17 12:38 01/15/17 12:38 01/15/17 12:38 General appearance: Present: cooperative, A&O X 3, morbidly obese, no acute distress, answers questions appropriately - Head Head exam: Present: atraumatic, normal inspection - Respiratory Respiratory exam: Present: decreased breath sounds. Absent: rales, respiratory distress, rhonchi, wheezes - Cardiovascular Cardiovascular exam: Present: RRR, +S1, +S2. Absent: tachycardia - GI/Abdominal GI/Abdominal exam: Present: normal bowel sounds, soft. Absent: rebound, rigid, tenderness - Extremities Exam Extremities exam: Present: pedal edema. Absent: calf tenderness, tenderness Additional comments: improved erythema and cellulites in Rt leg . - Back Exam Back exam: Absent: CVA tenderness (L), CVA tenderness (R) - Neurological Exam Neurological exam: Present: alert, oriented X3 - Psychiatric Psychiatric exam: Present: normal affect, normal mood Internal Medicine: Result - Labs CBC & Chem 7: 01/15/17 05:56 01/15/17 05:56 Labs: Short CBC 01/15/17 Range/Units 05:56 WBC 8.7 (4.3-11.1) K/mcL Hgb 15.8 (12.9-16.9) g/dL Hct 47.2 (37.5-50.1) % Plt Count 190 (140-400) K/mcL Neutrophils # 6.3 (1.6-8.9) K/mcL BMP 01/15/17 05:56 Sodium 138 Potassium 3.9 Chloride 100 Carbon Dioxide 28 BUN 8 Creatinine 0.95 Glucose 85 Calcium 8.7 Liver Function 01/15/17 Range/Units 05:56 Total Bilirubin 0.7 (0.2-1.2) mg/dL AST 25 (5-34) Units/L ALT 19 (0-55) Units/L Alkaline Phosphatase 94 (38-126) Units/L Albumin 2.4 L (3.5-5.0) g/dL - ABG Interpretation ABG results: PT/INR, D-dimer PT 13.0 Seconds (9.4-12.1) H 11/23/17 04:34 Consult Discharge Plan - Plan Referrals: [facility] [Primary Care Provider] - Rebecca Munoz [Family Provider] -
--- NOTE | 2017-01-15 16:00 | Discharge Summary ---
Date of Encounter: 01/15/17 Time of Encounter: 15:56 - Discharge Diagnosis (1) Cellulitis of scrotum Priority: Primary Status: Resolved (2) Cellulitis of right leg Priority: Primary Status: Acute (3) DVT (deep venous thrombosis) Priority: Primary Status: Acute Qualifiers: DVT location: lower extremity Affected thrombotic vein of extremity: popliteal Chronicity: acute Laterality: right Qualified Code(s): I82.431 - Acute embolism and thrombosis of right popliteal vein (4) Morbid obesity Priority: Secondary Status: Acute (5) Hypertension Priority: Secondary Status: Chronic Qualifiers: Hypertension type: essential hypertension Qualified Code(s): I10 - Essential (primary) hypertension (6) Bilateral lower extremity edema Priority: Secondary Status: Acute (7) Weakness of both lower extremities Priority: Secondary Status: Acute (8) Physical deconditioning Priority: Secondary Status: Acute - Discharge Medications Home Medications: Aloe Vera/Collagen [Aloe [place] Cleansing Foam] 1 appl TP AD 01/09/17 [History] Azelastine 0.1% Nasal [place] [Astelin] 1 spray NS BID 01/09/17 [History] Balsam [place] Oil [Venelex Ointment] 1 appl TP BID 01/09/17 [History] Bisacodyl [Dulcolax] 10 mg PO DAILY PRN 01/09/17 [History] Cholecalciferol (D-3) [Vitamin D] 2,000 unit PO DAILY 01/09/17 [History] Cyanocobalamin (Vitamin B-12) [Vitamin B12] 1,000 mcg PO DAILY 01/09/17 [History ] Diclofenac Sodium [Voltaren] 4 gm TP QID PRN 01/09/17 [History] Folic Acid 1 mg PO DAILY 01/09/17 [History] Gabapentin [Neurontin] 200 mg PO TID 01/09/17 [History] Hexamethyldisiloxane/Acryl-Glue Maker Bone [No Sting Skin Prep Wipes] 1 each TP AD 01/09/17 [History] Hydrocortisone 1% OINT [Cortaid] 1 appl TP BID 01/09/17 [History] Hydrocortisone 2.5% CREAM [Cortaid] 1 appl TP BID 01/09/17 [History] Hydrocortisone/Pramoxine [Proctofoam-Hc 1%-1% Foam] 1 applic RC BID PRN [History] Hydrophilic Cream [Basle] 1 appl TP DAILY 01/09/17 [History] Ketoconazole Shampoo [Nizoral Shampoo] 1 appl TP DAILY 01/09/17 [History] Lidocaine 1 appl TP QID 01/09/17 [History] Lisinopril [Zestril] 40 mg PO DAILY 01/09/17 [History] Nystatin OINT [Mycostatin] 1 appl TP BID 01/09/17 [History] Nystatin POWDER [Nystop] 1 appl TP BID 01/09/17 [History] Potassium Chloride [K-Tab ER] 20 meq PO DAILY 01/09/17 [History] Propylene Glycol/Peg 400 [Systane 0.3-0.4% Eye Drops] 1 drop BOTH EYES QID 01/09 [History] Ranitidine HCl [Zantac] 150 mg PO DAILY 01/09/17 [History] Selenium Sulfide [Selrx] 1 appl TP 2XW 01/09/17 [History] Sennosides/Docusate Sodium [Senna Plus] 2 each PO DAILY 01/09/17 [History] Sod Chloride/B-6/Zinc Acet/Ca [Wound Cleanser] 3 - 5 spray TP BID 01/09/17 [ History] Tamsulosin [Flomax] 0.4 mg PO HS 01/09/17 [History] Terbinafine HCl [Terbinafine] 1 appl TP BID 01/09/17 [History] Triamcinolone Acet 0.1% CRM [Kenalog] 1 appl TP BID 01/09/17 [History] Triamcinolone Acetonide [Nasacort] 2 spray NS DAILY 01/09/17 [History] Flavia Kirby [Preparation H] 1 each TP BID PRN 01/09/17 [History] Amoxicillin/Clavulanate [Augmentin] 875 mg PO BIDWM #10 tablet 01/15/17 [Rx] Apixaban [Eliquis] 10 mg PO BID #60 tablet 01/15/17 [Rx] Desitin (Zinc Oxide) [Desitin] 1 appl TP BID tube 01/15/17 [Rx] Furosemide [Lasix] 40 mg PO BID #0 01/15/17 [Rx] Allergies/Adverse Reactions: 3 Allergy/AdvReac Type Severity Reaction Status Date / Time atorvastatin Allergy Hives Verified 01/09/17 19:10 codeine Allergy Hives Verified 01/09/17 19:10 etodolac Allergy Hives Verified 01/09/17 19:10 losartan Allergy Hives Verified 01/09/17 19:10 naproxen Allergy Hives Verified 01/09/17 19:10 tramadol Allergy Hives Verified 01/09/17 19:10 Date of admission: 01/10/17 00:47 [facility] care physician: [facility] Consults: 01/10/17 05:28 Consult to Wound Care [CONS] Routine Reason for Consult: Right lower leg ulcer Call Completed: No 01/13/17 16:08 Consult to Erosion Control Coordinator [CONS] Routine Reason for SW Consult: Needs rehab 01/13/17 16:39 Consult to Occupational Therapy [CONS] Routine Comment: Evaluate, develop and implement POC Reason for Consult: Patient reports inability to walk PT [Consult to Physical Therapy] [CONS] Routine Comment: Evaluate, develop and implement POC Reason for Consult: Unable to walk - Patient Status Disposition: Transfer SNF Condition: Good Overall status at discharge: patient is back to baseline - Discharge Instructions Follow Up With: [facility] [Primary Care Provider[facility] - Rebecca Munoz [Family Provider] - Additional Instructions: Please take Eliquis 10mg PO BID x 5 more days then continue 5mg PO BID only for DVT treatment - Diet and Activity Activity: increase activity as tolerated Diet: low salt diet Hospital course: Mr. Rodriguez is a 76 year old male with past medical history of hypertension, BPH , chronic leg edema bilateral, peripheral neuropathy and restless legs. He presents to the ED with complaints of scrotal swelling and pain. He was placed on empirical abx with Zosyn. For his b/l LE swelling , Rt leg celulities, he did have venous doppler which showed Rt leg posterior tibial DVT. Currently he was placed on Eliquis for anticoag. His scrotal swelling, erythema and Rt leg cellulities also started improving. Switched to PO Augmentin today. Pt was flaquito by PT / OT recommend ECF placement for short term PT / OT So will d/c him to ECF today in stable condition. - Time Spent with Patient Total time spent providing and/or coordinating discharge services: - Constitutional Vitals: Temp Pulse Resp BP Pulse Ox 98 F 74 16 164/89 94 11/28/17 12:38 01/15/17 12:38 01/15/17 12:38 01/15/17 12:38 01/15/17 12:38 General appearance: Present: cooperative, A&O X 3, morbidly obese, no acute distress, answers questions appropriately - Head Head exam: Present: atraumatic, normal inspection - Respiratory Respiratory exam: Present: decreased breath sounds, wheezes (mild). Absent: respiratory distress, rhonchi - Cardiovascular Cardiovascular exam: Present: RRR, +S1, +S2. Absent: tachycardia - Expanded Exam Male exam: Present: erythema (Improving erythema over Scrotum) - Extremities Exam Extremities exam: Absent: calf tenderness, tenderness Additional comments: improving swelling / erythema in Rt leg - Psychiatric Psychiatric exam: Present: normal affect, normal mood
--- NOTE | 2017-01-15 16:03 | Physician Discharge Referral ---
ExtendedCare Referral Info Transfer To: ECF Provider in Charge after Transfer: PCP Institutional Level of Care: Skilled - Diagnosis (1) Cellulitis of scrotum Status: Resolved (2) Cellulitis of right leg Status: Acute (3) DVT (deep venous thrombosis) Status: Acute (4) Morbid obesity Status: Acute (5) Hypertension Status: Chronic (6) Bilateral lower extremity edema Status: Acute (7) Weakness of both lower extremities Status: Acute (8) Physical deconditioning Status: Acute - Transfer Medications Home Medications: Aloe Vera/Collagen [Aloe [place] Cleansing Foam] 1 appl TP AD 01/09/17 [History] Azelastine 0.1% Nasal [place] [Astelin] 1 spray NS BID 01/09/17 [History] Balsam [place] Oil [Venelex Ointment] 1 appl TP BID 01/09/17 [History] Bisacodyl [Dulcolax] 10 mg PO DAILY PRN 01/09/17 [History] Cholecalciferol (D-3) [Vitamin D] 2,000 unit PO DAILY 01/09/17 [History] Cyanocobalamin (Vitamin B-12) [Vitamin B12] 1,000 mcg PO DAILY 01/09/17 [History ] Diclofenac Sodium [Voltaren] 4 gm TP QID PRN 01/09/17 [History] Folic Acid 1 mg PO DAILY 01/09/17 [History] Gabapentin [Neurontin] 200 mg PO TID 01/09/17 [History] Hexamethyldisiloxane/Acryl-Milking Machine Operator [No Sting Skin Prep Wipes] 1 each TP AD 01/09/17 [History] Hydrocortisone 1% OINT [Cortaid] 1 appl TP BID 01/09/17 [History] Hydrocortisone 2.5% CREAM [Cortaid] 1 appl TP BID 01/09/17 [History] Hydrocortisone/Pramoxine [Proctofoam-Hc 1%-1% Foam] 1 applic RC BID PRN [History] Hydrophilic Cream [Basle] 1 appl TP DAILY 01/09/17 [History] Ketoconazole Shampoo [Nizoral Shampoo] 1 appl TP DAILY 01/09/17 [History] Lidocaine 1 appl TP QID 01/09/17 [History] Lisinopril [Zestril] 40 mg PO DAILY 01/09/17 [History] Nystatin OINT [Mycostatin] 1 appl TP BID 01/09/17 [History] Nystatin POWDER [Nystop] 1 appl TP BID 01/09/17 [History] Potassium Chloride [K-Tab ER] 20 meq PO DAILY 01/09/17 [History] Propylene Glycol/Peg 400 [Systane 0.3-0.4% Eye Drops] 1 drop BOTH EYES QID 01/09 [History] Ranitidine HCl [Zantac] 150 mg PO DAILY 01/09/17 [History] Selenium Sulfide [Selrx] 1 appl TP 2XW 01/09/17 [History] Sennosides/Docusate Sodium [Senna Plus] 2 each PO DAILY 01/09/17 [History] Sod Chloride/B-6/Zinc Acet/Ca [Wound Cleanser] 3 - 5 spray TP BID 01/09/17 [ History] Tamsulosin [Flomax] 0.4 mg PO HS 01/09/17 [History] Terbinafine HCl [Terbinafine] 1 appl TP BID 01/09/17 [History] Triamcinolone Acet 0.1% CRM [Kenalog] 1 appl TP BID 01/09/17 [History] Triamcinolone Acetonide [Nasacort] 2 spray NS DAILY 01/09/17 [History] Flavia Kirby [Preparation H] 1 each TP BID PRN 01/09/17 [History] Amoxicillin/Clavulanate [Augmentin] 875 mg PO BIDWM #10 tablet 01/15/17 [Rx] Apixaban [Eliquis] 10 mg PO BID #60 tablet 01/15/17 [Rx] Desitin (Zinc Oxide) [Desitin] 1 appl TP BID tube 01/15/17 [Rx] Furosemide [Lasix] 40 mg PO BID #0 01/15/17 [Rx] Allergies/Adverse Reactions: 3 Allergy/AdvReac Type Severity Reaction Status Date / Time atorvastatin Allergy Hives Verified 01/09/17 19:10 codeine Allergy Hives Verified 01/09/17 19:10 etodolac Allergy Hives Verified 01/09/17 19:10 losartan Allergy Hives Verified 01/09/17 19:10 naproxen Allergy Hives Verified 01/09/17 19:10 tramadol Allergy Hives Verified 01/09/17 19:10 - Respiratory Orders Smoking Cessation: Smoking cessation has been advised. For more information, call the [place] Tobacco Quit Line at 2-555-TRWP-NOW. CERTIFICATION: I certify that the transfer of the above named patient to an Extended Care Facility is necessary for the continuing treatment of the diagnosis listed. The above information is true and accurate reflection of patient's current condition. Confidential - Redisclosure prohibited without a patient's written consent.
== END 2017-01-15 18:00 | disposition other institution (70) | DRG 728 ==
LOC: 3ANU 19:02 → EMEROO 19:02 → 3ANU 23:48 → SUATTDRO 01-10 00:47
PROVIDERS: ADMIT Family Medicine; ATTEND Family Medicine

== ENCOUNTER 2017-02-13 16:54 | Inpatient (IN) ==
--- NOTE | 2017-02-13 17:11 | Emergency Department Note ---
Disposition Clinical Impression: GI bleed Qualifiers: GI bleed type/associated pathology: unspecified gastrointestinal hemorrhage type Qualified Code(s): K92.2 - Gastrointestinal hemorrhage, unspecified Anemia Qualifiers: Anemia type: iron deficiency Iron deficiency anemia type: chronic blood loss Qualified Code(s): D50.0 - Iron deficiency anemia secondary to blood loss ( chronic) Disposition: Admitted As Inpatient Condition: Fair [facility]errals: [facility] [Primary Care Provider] - Rebecca Munoz [Family Provider] - Forms: ED Satisfaction Letter Time of Disposition: 18:59 GI Bleed HPI - General Chief complaint: ED GI Bleed Stated complaint: gi Time Seen by Provider: 02/13/17 17:03 Source: patient, EMS Mode of arrival: EMS Limitations: no limitations Nursing Notes Reviewed: Yes Vital Signs Reviewed: Yes - History of Present Illness HPI Narrative: 76-year-old male who comes in from the [facility] after being diagnosed GI bleed. Patient was admitted here back in and the December and was found to have an acute right leg DVT. He was started on Eliquis . He was noted to have dark tarry stools for the last couple weeks. Seen at the [facility] today however they did not do a CBC that I can find. They did give him IV Protonix. Current blood pressures 125 over palp. Patient has a history of ulcer in the past. Patient was seen yesterday outside facility and diagnosed with a UTI. Pt Subjective Complaint: other (Dark tarry stools) Onset (ago): week(s) Consistency: intermittent (2) Severity: none Improves with: nothing Worsens with: nothing Context: anticoagulant use Associated symptoms: Reports: abdominal pain Treatments Prior to Arrival: none - Related Data Home Medications Medication Instructions Recorded Confirmed Aloe Vera/Collagen [Aloe [place] 1 appl TP AD 01/09/17 01/09/17 Cleansing Foam] Azelastine 0.1% Nasal [place] 1 spray NS BID 01/09/17 01/09/17 [Astelin] Balsam [place] Oil [Venelex 1 appl TP BID 01/09/17 01/09/17 Ointment] Bisacodyl [Dulcolax] 10 mg PO DAILY PRN 01/09/17 01/09/17 Cholecalciferol (D-3) [Vitamin D] 2,000 unit PO DAILY 01/09/17 01/09/17 Cyanocobalamin (Vitamin B-12) 1,000 mcg PO DAILY 01/09/17 01/09/17 [Vitamin B12] Diclofenac Sodium [Voltaren] 4 gm TP QID PRN 01/09/17 01/09/17 Folic Acid 1 mg PO DAILY 01/09/17 01/09/17 Gabapentin [Neurontin] 200 mg PO TID 01/09/17 01/09/17 Hexamethyldisiloxane/Acryl-Personal Development Educator [No 1 each TP AD 01/09/17 01/09/17 Sting Skin Prep Wipes] Hydrocortisone 1% OINT [Cortaid] 1 appl TP BID 01/09/17 01/09/17 Hydrocortisone 2.5% CREAM [Cortaid] 1 appl TP BID 01/09/17 01/09/17 Hydrocortisone/Pramoxine 1 applic RC BID PRN 01/09/17 01/09/17 [Proctofoam-Hc 1%-1% Foam] Hydrophilic Cream [Basle] 1 appl TP DAILY 01/09/17 01/09/17 Ketoconazole Shampoo [Nizoral 1 appl TP DAILY 01/09/17 01/09/17 Shampoo] Lidocaine 1 appl TP QID 01/09/17 01/09/17 Lisinopril [Zestril] 40 mg PO DAILY 01/09/17 01/09/17 Nystatin OINT [Mycostatin] 1 appl TP BID 01/09/17 01/09/17 Nystatin POWDER [Nystop] 1 appl TP BID 01/09/17 01/09/17 Potassium Chloride [K-Tab ER] 20 meq PO DAILY 01/09/17 01/09/17 Propylene Glycol/Peg 400 [Systane 1 drop BOTH EYES QID 01/09/17 01/09/17 0.3-0.4% Eye Drops] Ranitidine HCl [Zantac] 150 mg PO DAILY 01/09/17 01/09/17 Selenium Sulfide [Selrx] 1 appl TP 2XW 01/09/17 01/09/17 Sennosides/Docusate Sodium [Senna 2 each PO DAILY 01/09/17 01/09/17 Plus] Sod Chloride/B-6/Zinc Acet/Ca 3 - 5 spray TP BID 01/09/17 01/09/17 [Wound Cleanser] Tamsulosin [Flomax] 0.4 mg PO HS 01/09/17 01/09/17 Terbinafine HCl [Terbinafine] 1 appl TP BID 01/09/17 01/09/17 Triamcinolone Acet 0.1% CRM 1 appl TP BID 01/09/17 01/09/17 [Kenalog] Triamcinolone Acetonide [Nasacort] 2 spray NS DAILY 01/09/17 01/09/17 Flavia Kirby [Preparation H] 1 each TP BID PRN 01/09/17 01/09/17 Previous Rx's Medication Instructions Recorded Amoxicillin/Clavulanate [Augmentin] 875 mg PO BIDWM #10 tablet 01/15/17 Apixaban [Eliquis] 10 mg PO BID #60 tablet 01/15/17 Desitin (Zinc Oxide) [Desitin] 1 appl TP BID tube 01/15/17 Furosemide [Lasix] 40 mg PO BID #0 01/15/17 Allergies Allergy/AdvReac Type Severity Reaction Status Date / Time atorvastatin Allergy Hives Verified 01/09/17 19:10 codeine Allergy Hives Verified 01/09/17 19:10 etodolac Allergy Hives Verified 01/09/17 19:10 losartan Allergy Hives Verified 01/09/17 19:10 naproxen Allergy Hives Verified 01/09/17 19:10 tramadol Allergy Hives Verified 01/09/17 19:10 Constitutional: Denies: fever, chills, weakness, weight change Eyes: Denies: eye pain, eye discharge, vision change ENT ED: Denies: ear pain, throat pain, dental pain, hearing loss, epistaxis, congestion, dysphagia Cardiovascular: Denies: chest pain, palpitations, dyspnea on exertion, edema, syncope Respiratory: Denies: cough, dyspnea, wheezes, hemoptysis, stridor Gastrointestinal: Reports: other (Dark tarry stools). Denies: abdominal pain, nausea, vomiting, diarrhea, constipation, hematemesis, melena, hematochezia Genitourinary: Denies: urgency, dysuria, frequency, hematuria Musculoskeletal: Reports: arthralgia (Right leg pain). Denies: back pain, neck pain, myalgia Integumentary: Denies: rash, abrasion, lesions Neurological: Denies: headache, weakness, numbness, paresthesias, confusion, abnormal gait, vertigo Psychiatric: Denies: anxiety, depression, suicidal thoughts, homicidal thoughts , auditory hallucinations, visual hallucinations Endocrine: Denies: fatigue Hematological/Lymphatic: Denies: easy bleeding, easy bruising Allergic/Immunologic: Denies: facial swelling, urticaria Past Medical History - Past Medical History Medical history: Reports: arthritis, dementia, hyperlipidemia, hypertension, osteoporosis Psychiatric history: Reports: no psych history, anxiety, depression - Social History Smoking Status: Current every day smoker Smokeless Tobacco Status: No Alcohol use: Reports: rarely Drug use: Reports: none Physical Exam - General Limitations: no limitations General appearance: alert - Head Head exam: atraumatic, normocephalic, normal inspection - Eye Eye exam: Present: normal appearance, PERRL, EOMI - ENT ENT exam: normal exam, normal oropharynx, mucous membranes moist - Neck Neck exam: Present: normal inspection, full ROM, trachea midline - Chest Chest inspection: Present: normal inspection, symmetric chest wall rise - Respiratory Respiratory exam: Present: normal lung sounds bilaterally - Cardiovascular Cardiovascular exam: Present: regular rate, normal rhythm, normal heart sounds - Abdominal Exam Abdominal exam: Present: soft, tenderness. Absent: guarding, rebound Abdominal tenderness: Present: diffuse, mild - Extremities Exam Extremities exam: Present: normal inspection, full ROM. Absent: tenderness, pedal edema - Expanded Lower Extremity Exam Neurovascular/Tendon exam: Absent: motor deficit, sensory deficit, tendon deficit Gait: observed and normal - Back Exam Back exam: Present: normal inspection, full ROM. Absent: tenderness - Neurological Exam Neurological exam: Present: alert, oriented X3 - Psychiatric Psychiatric exam: Present: normal affect, normal mood - Skin Skin exam: Present: warm, dry, intact, normal color Course - Reevaluation(s) Reevaluation #1: 76-year-old who was diagnosed with a DVT back in December and started on Eliquis. He developed dark tarry stools over the last couple of weeks. Was found to have a low hemoglobin. Hemoglobin today was 8.7. His hemoglobin in December was 17.5. His INR was 2.5. Patient will be given fresh frozen plasma, and blood since she's had a significant drop per gastroenterology. Time: 18:58 - Consultations Consultation #1: Discussed with Dr.Gul, [facility] fresh frozen plasma, 2 units of packed red cells due to the significant hemoglobin drop and will see him in consult. Also recommended a PPI drip. Time: 18:25 Consultation #2: Discussed with randee Fairbanks. Time: 18:58 Vital Signs Temperature 97.3 F L 02/13/17 16:58 Pulse Rate 63 02/13/17 16:58 Respiratory Rate 20 02/13/17 16:58 Blood Pressure 125/46 02/13/17 16:58 O2 Sat by Pulse Oximetry 95 02/13/17 16:58 Temperature 97.3 F L 02/13/17 16:58 Pulse Rate 86 02/13/17 18:07 Respiratory Rate 20 02/13/17 18:07 Blood Pressure 102/59 02/13/17 18:07 O2 Sat by Pulse Oximetry 96 02/13/17 18:07 Oxygen Delivery Oxygen Delivery Room Air GI Bleed - Lab Data Result diagrams: 02/13/17 17:27 02/13/17 17:27 Lab Results 02/13/17 02/13/17 02/13/17 Range/Units 17:05 17:27 17:27 WBC 14.0 H (4.3-11.1) K/mcL RBC 2.66 L (4.19-5.50) M/mcL Hgb 8.5 L (12.9-16.9) g/dL Hct 25.7 L (37.5-50.1) % MCV 96.6 (83.0-100.0) fL MCH 32.0 (28.0-33.3) pg MCHC 33.1 (31.6-35.5) g/dL RDW 13.3 (11.5-14.5) % Plt Count 137 L (140-400) K/mcL MPV 13.6 H (9.4-12.4) fL Immature Gran % 0.8 (0-4) % Seg Neutrophils % 81.7 % Lymphocytes % 10.4 % Monocytes % 5.2 % Eosinophils % 1.6 % Basophils % 0.3 % Neutrophils # 11.5 H (1.6-8.9) K/mcL Lymphocytes # 1.5 (0.6-4.6) K/mcL Monocytes # 0.7 (0.0-1.3) K/mcL Eosinophils # 0.2 (0.0-0.6) K/mcL Basophils # 0.0 (0.0-0.2) K/mcL PT 27.9 H (9.4-12.1) Seconds INR 2.5 APTT 33.0 (26.0-36.0) Seconds Sodium (136-145) mEq/L Potassium (3.5-5.1) mEq/L Chloride (98-107) mEq/L Carbon Dioxide (23-29) mEq/L BUN (8-23) mg/dL Creatinine (0.70-1.30) mg/dL Est GFR ( Amer) (> 60) Est GFR (Non-Af Amer) (> 60) BUN/Creatinine Ratio (6-26) Glucose (70-105) mg/dL Calculated Osmolality (280-300) Calcium (8.6-10.3) mg/dL Urine Color Yellow (Yellow) Urine Clarity Clear (Clear) Urine pH 5.5 (5.0-8.0) pH Units Ur Specific [place] 1.025 (1.010-1.025) Urine Protein Negative (Neg-Trace) mg/dL Urine Glucose (UA) Normal (Normal) mg/dL Urine Ketones Negative (Negative) mg/dL Urine Blood Negative (Negative) Urine Nitrite Negative (Negative) Urine Bilirubin Negative (Negative) Urine Urobilinogen Normal (Normal) mg/dL Ur Leukocyte Esterase Negative (Negative) Ur Culture Indicated? NO (NO) Blood Type Antibody Screen Crossmatch 02/13/17 02/13/17 Range/Units 17:27 17:27 WBC (4.3-11.1) K/mcL RBC (4.19-5.50) M/mcL Hgb (12.9-16.9) g/dL Hct (37.5-50.1) % MCV (83.0-100.0) fL MCH (28.0-33.3) pg MCHC (31.6-35.5) g/dL RDW (11.5-14.5) % Plt Count (140-400) K/mcL MPV (9.4-12.4) fL Immature Gran % (0-4) % Seg Neutrophils % % Lymphocytes % % Monocytes % % Eosinophils % % Basophils % % Neutrophils # (1.6-8.9) K/mcL Lymphocytes # (0.6-4.6) K/mcL Monocytes # (0.0-1.3) K/mcL Eosinophils # (0.0-0.6) K/mcL Basophils # (0.0-0.2) K/mcL PT (9.4-12.1) Seconds INR APTT (26.0-36.0) Seconds Sodium 140 (136-145) mEq/L Potassium 3.5 (3.5-5.1) mEq/L Chloride 107 (98-107) mEq/L Carbon Dioxide 27 (23-29) mEq/L BUN 64 H (8-23) mg/dL Creatinine 1.24 (0.70-1.30) mg/dL Est GFR ( Amer) > 60 (> 60) Est GFR (Non-Af Amer) 57 L (> 60) BUN/Creatinine Ratio 52 H (6-26) Glucose 101 (70-105) mg/dL Calculated Osmolality 308 H (280-300) Calcium 8.4 L (8.6-10.3) mg/dL Urine Color (Yellow) Urine Clarity (Clear) Urine pH (5.0-8.0) pH Units Ur Specific [place] (1.010-1.025) Urine Protein (Neg-Trace) mg/dL Urine Glucose (UA) (Normal) mg/dL Urine Ketones (Negative) mg/dL Urine Blood (Negative) Urine Nitrite (Negative) Urine Bilirubin (Negative) Urine Urobilinogen (Normal) mg/dL Ur Leukocyte Esterase (Negative) Ur Culture Indicated? (NO) Blood Type AB POSITIVE Antibody Screen NEGATIVE Crossmatch See Detail Critical Care Time Critical Care Time: Yes Total Critical Care Time: 30 Attestation: The high probability of a clinically significant, sudden or life threatening deterioration of the [hematologic] system(s) required my full and direct attention, intervention and personal management. The aggregate critical care time was [30] minutes. This time is in addition to time spent performing reported procedures but includes the following: [x] Data Review and interpretation [x] Patient assessment and monitoring of vital signs [x] Documentation [x] Medication orders and management
[2017-02-13 17:18] LABS: Bilirubin,Urine Negative (Negative); Blood,Urine Negative (Negative); Clarity,Urine Clear (Clear); Color,Urine Yellow (Yellow); Glucose,Urine (UA) Normal (Normal); Ketones,Urine Negative (Negative); Leukocyte Esterase,Urine Negative (Negative); Nitrite,Urine Negative (Negative); PH,Urine 5.5 pH Units (5.0-8.0); Protein,Urine Negative (Neg-Trace); Specific Gravity,Urine 1.025 (1.010-1.025); Urobilinogen,Urine Normal (Normal)
[2017-02-13 17:39] LABS: Basophils % 0.3 %; Eosinophils # 0.2 K/mcL (0.0-0.6); Eosinophils % 1.6 %; Hematocrit 25.7 % (37.5-50.1); Hemoglobin 8.5 g/dL (12.9-16.9); Immature Granulocytes % 0.8 % (0-4); Lymphocytes # 1.5 K/mcL (0.6-4.6); Lymphocytes % 10.4 %; Mean Corpuscular HGB Conc 33.1 g/dL (31.6-35.5); Mean Corpuscular Volume 96.6 fL (83.0-100.0); Mean Platelet Volume 13.6 fL (9.4-12.4); Monocytes # 0.7 K/mcL (0.0-1.3); Monocytes % 5.2 %; Neutrophils # 11.5 K/mcL (1.6-8.9); Platelet Count 137 K/mcL (140-400); Red Blood Count 2.66 M/mcL (4.19-5.50); Red Cell Distribution Width 13.3 % (11.5-14.5); Segmented Neutrophils % 81.7 %
[2017-02-13 17:47] LABS: INR 2.5; Prothrombin Time 27.9 Seconds (9.4-12.1)
[2017-02-13 17:52] LABS: BUN/Creatinine Ratio 52 (6-26); Blood Urea Nitrogen 64 mg/dL (8-23); Calcium 8.4 mg/dL (8.6-10.3); Carbon Dioxide 27 mEq/L (23-29); Chloride 107 mEq/L (98-107); Glucose 101 mg/dL (70-105); Osmolality,Calculated 308 (280-300); Potassium 3.5 mEq/L (3.5-5.1); Sodium 140 mEq/L (136-145); eGFR For African Americans > 60 (> 60); eGFR For Non-African Americans 57 (> 60)
[2017-02-13] MEDS ORDERED: Ondansetron 4 MG/2 ML VIAL IVP ONE (18:39)
[2017-02-13] MEDS ORDERED: *HR* Morphine 2 MG/ML SYRINGE IVP ONE (18:39)
[2017-02-13] MEDS: Pantoprazole 80 MG in 0.9 % Sodium Chloride 250 ML IVC SCH ×2 (18:42→22:02)
[2017-02-13] MEDS ORDERED: 0.9 % Sodium Chloride 250 ML ONE ×2 (18:55→21:57)
[2017-02-13] MEDS ORDERED: *HR* HYDROmorphone (PF) 1 MG/ML SYRINGE IVP PRN (22:00)
[2017-02-13] MEDS ORDERED: Acetaminophen 325 MG TABLET PO PRN (22:00)
[2017-02-13] MEDS ORDERED: Ondansetron 4 MG/2 ML VIAL IVP PRN (22:00)
[2017-02-13] MEDS ORDERED: Naloxone 0.4 MG/ML INJ IVP PRN (22:00)
[2017-02-13] MEDS: 0.9 % Sodium Chloride 1,000 ML IVC SCH (22:19)
[2017-02-13] MEDS ORDERED: *HR* HYDROmorphone (PF) 1 MG/ML SYRINGE IM PRN (22:32)
[2017-02-13] MEDS ORDERED: *HR* HYDROmorphone (PF) 1 MG/ML SYRINGE IM ONE (22:34)
--- NOTE | 2017-02-14 00:19 | Internal Med History&Physical ---
Date of Encounter: 02/13/17 Time of Encounter: 20:00 Assessment and Plan (1) DVT prophylaxis Current visit: No Status: Acute Pt is on Eliquis for recent Rt side leg DVT. Still has Rt leg swelling. Will check Doppler legs to see residual of DVT. Pt has rectal bleeding with H/H drop , will hold Eliquis now. Will also hold EPCD as pt remains Rt leg swelling. Further management depend on doppler result. (2) Hypertension Current visit: No Status: Chronic Hold home med as pt's BP is not high and having active bleeding Qualifiers: Hypertension type: essential hypertension Qualified Code(s): I10 - Essential (primary) hypertension (3) DVT (deep venous thrombosis) Current visit: No Status: Acute Management as listed above. Qualifiers: DVT location: lower extremity Affected thrombotic vein of extremity: popliteal Chronicity: chronic Laterality: right Qualified Code(s): I82.531 - Chronic embolism and thrombosis of right popliteal vein (4) GI bleed Current visit: Yes Status: Acute Pt has rectal bleeding, etiology is undetermined. GI called by ER physician. Recommend FFP, PRBC x 2, and IV PPI drip. - Will hold Eliquis. - Closely monitor vitals and H/H. - NPO, IVF - FFP, PRBC, and iv PPI drip per GI Qualifiers: GI bleed type/associated pathology: anorectal hemorrhage Qualified Code(s) : K62.5 - Hemorrhage of anus and rectum (5) Anemia Current visit: Yes Status: Acute Due to acute blood loss, will give transfusion. Qualifiers: Anemia type: iron deficiency Iron deficiency anemia type: chronic blood loss Qualified Code(s): D50.0 - Iron deficiency anemia secondary to blood loss (chronic) (6) Diarrhea Current visit: Yes Status: Acute Pt was on abx about 1 month ago. Will check GI panel. Qualifiers: Diarrhea type: unspecified type Qualified Code(s): R19.7 - Diarrhea, unspecified (7) Decubitus ulcer Current visit: Yes Status: Acute Cont care per protocol to turn pt periodically. Qualifiers: Pressure ulcer location: sacral region Pressure ulcer stage: stage 2 Qualified Code(s): L89.152 - Pressure ulcer of sacral region, stage 2 (8) Leukocytosis Current visit: Yes Status: Acute No signs of acute infection, probably reactive to GI bleed. Will f/u CBC. Qualifiers: Leukocytosis type: bandemia Qualified Code(s): D72.825 - Bandemia Internal Medicine - H&P: HPI Chief complaint: Rectal bleeding Admitted From: Home Plans for Post Hospital Care: Transfer Inp Rehab Fac History of present illness: Mr. Rodriguez is a 76 year old male with Hx of HTN, recent DVT (Nov) on Eliquis, Arthiris end up with jail bed bound, pressure ulcer present to ER for rectal bleeding for 3-4 days. Pt said he has diarrhea for about 2 wks. Since 3- 4 days ago he start having black blood from rectum, sometimes mixed with stool but most of the time was pure blood. Pt has weakness and dizziness. His Hgb dropped from 15.8 to 8.5. Pt denies fever, nausea, chest pain. He has cramping abd pain feels like "he is going to have BM". Pt was admitted for rectal bleeding. I have discussed code status with pt. He clearly state he doesn't want CPR if cardiac arrest happens, DNRCCA placed. Past Med Surg Social Fam HX - Past Medical History Medical history: arthritis, dementia, hyperlipidemia, hypertension, osteoporosis Psychiatric history: no psych history, anxiety, depression - Social History Smoking Status: Current every day smoker Smokeless Tobacco Status: No Alcohol use: rarely Drug use: none - Family History Mother History Unknown: Yes Internal Medicine - H&P: Meds RX: Aloe Vera/Collagen [Aloe [place] Cleansing Foam] 1 appl TP AD 01/09/17 [ History] RX: Azelastine 0.1% Nasal [place] [Astelin] 1 spray NS BID 01/09/17 [History] RX: Balsam [place] Oil [Venelex Ointment] 1 appl TP BID 01/09/17 [History] RX: Bisacodyl [Dulcolax] 10 mg PO DAILY PRN 01/09/17 [History] RX: Cholecalciferol (D-3) [Vitamin D] 2,000 unit PO DAILY 01/09/17 [History] RX: Cyanocobalamin (Vitamin B-12) [Vitamin B12] 1,000 mcg PO DAILY 01/09/17 [ History] RX: Diclofenac Sodium [Voltaren] 4 gm TP QID PRN 01/09/17 [History] RX: Folic Acid 1 mg PO DAILY 01/09/17 [History] RX: Gabapentin [Neurontin] 200 mg PO TID 01/09/17 [History] RX: Hexamethyldisiloxane/Acryl-Careers Adviser [No Sting Skin Prep Wipes] 1 each TP AD 01/09 [History] RX: Hydrocortisone 1% OINT [Cortaid] 1 appl TP BID PRN 01/09/17 [History] RX: Hydrocortisone 2.5% CREAM [Cortaid] 1 appl TP BID 01/09/17 [History] RX: Hydrocortisone/Pramoxine [Proctofoam-Hc 1%-1% Foam] 1 applic RC BID PRN [History] RX: Hydrophilic Cream [[place]] 1 appl TP DAILY 01/09/17 [History] RX: Ketoconazole Shampoo [Nizoral Shampoo] 1 appl TP DAILY 01/09/17 [History] RX: Lidocaine 1 appl TP QID 01/09/17 [History] RX: Lisinopril [Zestril] 40 mg PO DAILY 01/09/17 [History] RX: Nystatin OINT [Mycostatin] 1 appl TP BID 01/09/17 [History] RX: Nystatin POWDER [Nystop] 1 appl TP BID 01/09/17 [History] RX: Potassium Chloride [K-Tab ER] 20 meq PO DAILY 01/09/17 [History] RX: Propylene Glycol/Peg 400 [Systane 0.3-0.4% Eye Drops] 1 drop BOTH EYES QID 01/09/17 [History] RX: Ranitidine HCl [Zantac] 150 mg PO DAILY 01/09/17 [History] RX: Selenium Sulfide [Selrx] 1 appl TP 2XW 01/09/17 [History] RX: Sennosides/Docusate Sodium [Senna Plus] 2 each PO DAILY 01/09/17 [History] RX: Sod Chloride/B-6/Zinc Acet/Ca [Wound Cleanser] 3 - 5 spray TP BID 01/09/17 [ History] RX: Tamsulosin [Flomax] 0.4 mg PO HS 01/09/17 [History] RX: Terbinafine HCl [Terbinafine] 1 appl TP BID 01/09/17 [History] RX: Triamcinolone Acet 0.1% CRM [Kenalog] 1 appl TP BID 01/09/17 [History] RX: Triamcinolone Acetonide [Nasacort] 2 spray NS DAILY 01/09/17 [History] RX: Flavia [place] [Preparation H] 1 each TP BID PRN 01/09/17 [History] Cleansing Cloth, Adult 1 each TP Q3H PRN 02/13/17 [History] RX: Apixaban [Eliquis] 5 mg PO BID 02/13/17 [History] RX: Furosemide [Lasix] 40 mg PO QAM 02/13/17 [History] 3 Allergy/AdvReac Type Severity Reaction Status Date / Time atorvastatin Allergy Hives Verified 01/09/17 19:10 codeine Allergy Hives Verified 01/09/17 19:10 etodolac Allergy Hives Verified 01/09/17 19:10 losartan Allergy Hives Verified 01/09/17 19:10 naproxen Allergy Hives Verified 01/09/17 19:10 tramadol Allergy Hives Verified 01/09/17 19:10 duloxetine AdvReac See Verified 02/13/17 19:35 Comments All Systems PM: A 10-system review of systems was performed and is negative for pertinent findings except as documented above in the HPI. - Constitutional Vitals: Temp Pulse Resp BP Pulse Ox 97.4 F L 83 18 116/51 98 02/13/17 23:56 02/13/17 23:56 02/13/17 23:56 02/13/17 23:56 02/13/17 22:47 General appearance: Present: A&O X 3, no acute distress, answers questions appropriately - Head Head exam: Present: atraumatic, normocephalic - Eye Eye exam: Present: PERRL, conjuntiva pink, sclera anicteric Pupils: Present: PERRL - Neck Neck exam general surgery: Present: supple, trachea midline. Absent: lymphadenopathy - Respiratory Respiratory exam: Present: CTAB. Absent: accessory muscle use, rales, rhonchi, wheezes - Cardiovascular Cardiovascular exam: Present: RRR, +S1, +S2. Absent: diastolic murmur, gallop, rubs, systolic murmur - GI/Abdominal GI/Abdominal exam: Present: normal bowel sounds, soft, tenderness (Mild tenderness without rebound or guarding), no peritoneal signs. Absent: distended - Extremities Exam Extremities exam: Present: calf tenderness (On the right side), pedal edema ( Right side pedal edema), warm, radial pulses palpable and symmetrical. Absent: cyanotic - Neurological Exam Neurological exam: Present: CN II-XII intact, oriented X3, no focal deficits. Absent: pronater drift, facial droop, speech deficit - Skin Skin exam: Present: dry, intact Internal Med - H&P Results - Labs CBC & Chem 7: 02/13/17 17:27 02/13/17 17:27 - EKG Data -: EKG Interpreted by Myself EKG shows normal: sinus rhythm Rate: normal
[2017-02-14] MEDS ORDERED: 0.9 % Sodium Chloride 250 ML ONE ×3 (01:10→12:32)
[2017-02-14 05:00] LABS: BUN/Creatinine Ratio 47 (6-26); Blood Urea Nitrogen 51 mg/dL (8-23); Calcium 8.1 mg/dL (8.6-10.3); Carbon Dioxide 24 mEq/L (23-29); Chloride 110 mEq/L (98-107); Glucose 82 mg/dL (70-105); Magnesium 1.8 mg/dL (1.6-2.6); Osmolality,Calculated 305 (280-300); Potassium 3.5 mEq/L (3.5-5.1); Sodium 141 mEq/L (136-145); eGFR For African Americans > 60 (> 60); eGFR For Non-African Americans > 60 (> 60)
[2017-02-14 05:42] LABS: Basophils % 0.2 %; Eosinophils # 0.4 K/mcL (0.0-0.6); Eosinophils % 2.8 %; Hematocrit 27.1 % (37.5-50.1); Hemoglobin 8.9 g/dL (12.9-16.9); Immature Granulocytes % 0.5 % (0-4); Lymphocytes # 1.9 K/mcL (0.6-4.6); Lymphocytes % 14.9 %; Mean Corpuscular HGB Conc 32.8 g/dL (31.6-35.5); Mean Corpuscular Hemoglobin 30.6 pg (28.0-33.3); Mean Corpuscular Volume 93.1 fL (83.0-100.0); Mean Platelet Volume 13.9 fL (9.4-12.4); Monocytes # 0.8 K/mcL (0.0-1.3); Monocytes % 6.2 %; Neutrophils # 9.7 K/mcL (1.6-8.9); Platelet Count 110 K/mcL (140-400); Red Blood Count 2.91 M/mcL (4.19-5.50); Red Cell Distribution Width 16.5 % (11.5-14.5); Segmented Neutrophils % 75.4 %
[2017-02-14 05:43] LABS: INR 2.3; Prothrombin Time 25.1 Seconds (9.4-12.1)
[2017-02-14] MEDS: 0.9 % Sodium Chloride 1,000 ML IVC SCH (07:04)
[2017-02-14] MEDS: Pantoprazole 80 MG in 0.9 % Sodium Chloride 250 ML IVC SCH ×2 (08:23→18:48)
[2017-02-14] MEDS: *HR* HYDROmorphone (PF) 1 MG/ML SYRINGE IVP PRN ×2 (09:32→14:07)
--- NOTE | 2017-02-14 11:15 | Gastroenterology Consult Note ---
Date of Encounter: 02/14/17 Time of Encounter: 10:30 - Assessment and plan (1) GI bleed Current Visit: Yes Status: Acute Assessment and plan: Pt with dark tarry stools. Plan for EGD tomorrow to r/o esophagitis, gastritis, duodenitis, PUD, MW tear, or AVM. Keep patient NPO at midnight. Continue to hold Eliquis. Qualifiers: GI bleed type/associated pathology: anorectal hemorrhage Qualified Code(s) : K62.5 - Hemorrhage of anus and rectum (2) Anemia Current Visit: Yes Status: Acute Assessment and plan: Hgb 15.8 on 01/15 and 8.5 on admission. Continue to monitor CBC and transfuse PRBC as needed. Plan for EGD tomorrow. Keep NPO at midnight. Qualifiers: Anemia type: iron deficiency Iron deficiency anemia type: chronic blood loss Qualified Code(s): D50.0 - Iron deficiency anemia secondary to blood loss (chronic) (3) Coagulopathy Current Visit: Yes Status: Acute Assessment and plan: INR 2.5 on admission. He has received 1 unit FFP and Vitamin K 5 mg and INR improved to 2.3. Two more units of FFP have been ordered. If INR >1.5 may be unable to complete EGD. - Time Spent With Patient Total time spent is greater than 50% in coordination of care (as documented) at patient's floor/unit and/or counseling patient: GI History of Present Illness - Data of Consult Patient: new to practice Consult date: 02/14/17 Requesting Physician: Miriam Murphy MD - Consult Narrative Reason for consult: GI Bleed, anemia History of present illness: Mr. Rodriguez is a 76 year old male with PMHx of arthritis, HLD, HTN, recent DVT ( Nov) on Eliquis, [facility] bleeding for 3-4 days prior to admission. He was noted to have dark tarry stools for the past couple of weeks. His Hgb on 01/15/17 was 15.8, and on admission Hgb 8.5. INR 2.5 on admission. He has received 1 unit FFP and 2 units of PRBC. He was started on Protonix drip and IV fluids. He denies fevers, chills , chest pain, nausea, vomiting, constipation, or BRBPR. Procedures: No record NSAIDs: None Anticoagulation: Eliquis Past Med Surg Social Fam HX - Past Medical History Medical history: arthritis, dementia, hyperlipidemia, hypertension, osteoporosis Psychiatric history: no psych history, anxiety, depression - Social History Smoking Status: Current every day smoker Packs per day: 1 Smokeless Tobacco Status: No Alcohol use: rarely Drug use: none - Family History Mother History Unknown: Yes - Gastrointestinal Gastrointestinal: Present: as per HPI - Constitutional Constitutional: as per HPI - EENT Eyes: as per HPI Ears: Present: as per HPI Nose, mouth and throat: Present: as per HPI - Cardiovascular Cardiovascular ROS: Present: as per HPI - Respiratory Respiratory IM: Present: as per HPI - Genitourinary Genitourinary: Absent: change in color, Urinary frequency - Neurological ROS Neurological GI: Present: as per HPI - Hematologic/Lymphatic Hematologic/Lymphatic pediatric: Present: as per HPI - Musculoskeletal Musculoskeletal ROS GI: Present: as per HPI - Integumentary Integumentary GI: Present: as per HPI - Psychiatric ROS Psychiatric GI: Present: as per HPI - Endocrine Endocrine IM: Present: as per HPI - Constitutional Vitals: Temp Pulse Resp BP Pulse Ox 97.3 F L 78 12 116/71 96 02/14/17 10:15 02/14/17 10:15 02/14/17 10:15 02/14/17 10:15 02/14/17 10:15 General appearance: Present: cooperative, A&O X 3, no acute distress, answers questions appropriately - Head Head exam: Present: atraumatic, normocephalic - Eye Eye exam: Present: normal appearance, sclera anicteric - ENT ENT exam: Present: mucous membranes dry - Neck Neck exam general surgery: Present: normal inspection, trachea midline - Respiratory Respiratory exam: Present: CTAB. Absent: rales, rhonchi - Cardiovascular Cardiovascular exam: Present: RRR, +S1, +S2 - GI/Abdominal GI/Abdominal exam: Present: soft, tenderness (mild upper abdominal tenderness), no peritoneal signs. Absent: distended, firm, guarding - Rectal Rectal exam: Present: deferred - Extremities Exam Extremities exam: Present: warm - Neurological Exam Neurological exam: Present: no focal deficits - Psychiatric Psychiatric exam: Present: normal affect, normal mood - Skin Skin exam: Present: dry, intact, normal color, warm Results - Labs CBC & Chem 7: 02/14/17 05:08 02/14/17 04:36 Labs: Last Result Calcium 8.1 mg/dL (8.6-10.3) L 02/14/17 04:36 Entire Visit Hgb 8.9 g/dL (12.9-16.9) L 02/14/17 05:08 Hct 27.1 % (37.5-50.1) L 02/14/17 05:08 PT 25.1 Seconds (9.4-12.1) H 02/14/17 05:08 - ABG ABG results: PT/INR, D-dimer PT 25.1 Seconds (9.4-12.1) H 02/14/17 05:08 Consult Discharge Plan - Plan [facility]errals: [facility] [Primary Care Provider[facility] -
--- NOTE | 2017-02-14 11:46 | Oncology Inp Consult Note ---
Date of Encounter: 02/14/17 Time of Encounter: 11:46 Assessment and Plan (1) DVT (deep venous thrombosis) Status: Acute Assessment and plan: Newly diagnosed DVT and Eliquis started about 1 month ago. Agree with plan to currently hold Eliquis. Bilateral venous doppler ordered to assess for chronicity, resolution or extension of previous acute DVT located in right posterior tibial, appreciate comparison with previous doppler. Dependant upon doppler results may recommend IVC filter placement vs continuation of oral anticoagulant following resolution of GI bleed. GI Bleed. Hgb currently stable at 8.9 following 2 units PRBC. Reviewed GI recommendations for EGD tentatively planned for tomorrow pending INR can be decreased to goal of 1.5 per GI consultation note. Slight leukocytosis, most likely reactive from GI bleed, will monitor. Please refer to Dr. Corea's attestation below for further details. 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 Rodriguez is a 76 year old male with past medical history significant for HTN , right posterior tibial DVT (January 15, 2017) started on Eliquis, Arthritis , fpc bed bound, and pressure ulcer. Presents to ER for rectal bleeding, black/tarry stools and some pure bloody stools for 3-4 days. Pt has weakness and dizziness and some confusion/hallucinations according to his production corrugator. He has been wheelchair/bed bound for an extended period of time. His Hgb dropped from 15.8 to 8.5. Most history received from patients fpc production corrugator and stated POA as patient is drowsy but arousable due to recent pain medication administration. Patient continues to experience chronic BLE edema with severe RLE edema and calf pain, no calf erythema noted. Past Med Surg Social Fam HX - Past Medical History Medical history: arthritis, dementia, hyperlipidemia, hypertension, osteoporosis Psychiatric history: no psych history, anxiety, depression - Social History Smoking Status: Current every day smoker Packs per day: 1 Smokeless Tobacco Status: No Alcohol use: rarely Drug use: none - Family History Mother History Unknown: Yes Medications and Allergies Aloe Vera/Collagen [Aloe [place] Cleansing Foam] 1 appl TP AD 01/09/17 [History] Azelastine 0.1% Nasal [place] [Astelin] 1 spray NS BID 01/09/17 [History] Balsam [place] Oil [Venelex Ointment] 1 appl TP BID 01/09/17 [History] Bisacodyl [Dulcolax] 10 mg PO DAILY PRN 01/09/17 [History] Cholecalciferol (D-3) [Vitamin D] 2,000 unit PO DAILY 01/09/17 [History] Cyanocobalamin (Vitamin B-12) [Vitamin B12] 1,000 mcg PO DAILY 01/09/17 [History ] Diclofenac Sodium [Voltaren] 4 gm TP QID PRN 01/09/17 [History] Folic Acid 1 mg PO DAILY 01/09/17 [History] Gabapentin [Neurontin] 200 mg PO TID 01/09/17 [History] Hexamethyldisiloxane/Acryl-Wafer Fab Operator [No Sting Skin Prep Wipes] 1 each TP AD 01/09/17 [History] Hydrocortisone 1% OINT [Cortaid] 1 appl TP BID PRN 01/09/17 [History] Hydrocortisone 2.5% CREAM [Cortaid] 1 appl TP BID 01/09/17 [History] Hydrocortisone/Pramoxine [Proctofoam-Hc 1%-1% Foam] 1 applic RC BID PRN [History] Hydrophilic Cream [[place]] 1 appl TP DAILY 01/09/17 [History] Ketoconazole Shampoo [Nizoral Shampoo] 1 appl TP DAILY 01/09/17 [History] Lidocaine 1 appl TP QID 01/09/17 [History] Lisinopril [Zestril] 40 mg PO DAILY 01/09/17 [History] Nystatin OINT [Mycostatin] 1 appl TP BID 01/09/17 [History] Nystatin POWDER [Nystop] 1 appl TP BID 01/09/17 [History] Potassium Chloride [K-Tab ER] 20 meq PO DAILY 01/09/17 [History] Propylene Glycol/Peg 400 [Systane 0.3-0.4% Eye Drops] 1 drop BOTH EYES QID 01/09 [History] Ranitidine HCl [Zantac] 150 mg PO DAILY 01/09/17 [History] Selenium Sulfide [Selrx] 1 appl TP 2XW 01/09/17 [History] Sennosides/Docusate Sodium [Senna Plus] 2 each PO DAILY 01/09/17 [History] Sod Chloride/B-6/Zinc Acet/Ca [Wound Cleanser] 3 - 5 spray TP BID 01/09/17 [ History] Tamsulosin [Flomax] 0.4 mg PO HS 01/09/17 [History] Terbinafine HCl [Terbinafine] 1 appl TP BID 01/09/17 [History] Triamcinolone Acet 0.1% CRM [Kenalog] 1 appl TP BID 01/09/17 [History] Triamcinolone Acetonide [Nasacort] 2 spray NS DAILY 01/09/17 [History] Flavia [place] [Preparation H] 1 each TP BID PRN 01/09/17 [History] Apixaban [Eliquis] 5 mg PO BID 02/13/17 [History] Cleansing Cloth, Adult 1 each TP Q3H PRN 02/13/17 [History] Furosemide [Lasix] 40 mg PO QAM 02/13/17 [History] 3 Allergy/AdvReac Type Severity Reaction Status Date / Time atorvastatin Allergy Hives Verified 01/09/17 19:10 codeine Allergy Hives Verified 01/09/17 19:10 etodolac Allergy Hives Verified 01/09/17 19:10 losartan Allergy Hives Verified 01/09/17 19:10 naproxen Allergy Hives Verified 01/09/17 19:10 tramadol Allergy Hives Verified 01/09/17 19:10 duloxetine AdvReac See Verified 02/13/17 19:35 Comments Review of systems: Difficult to obtain due to patients drowsiness, obtained partially from patient , caregiver and previous record review Constitutional: Present: fatigue, weakness Cardiovascular: Present: edema. Absent: chest pain Respiratory: Present: dyspnea Gastrointestinal: Present: diarrhea, hematochezia, melena. Absent: abdominal pain, coffee ground emesis, nausea, vomiting Musculoskeletal: Present: limited range of motion Integumentary: Present: skin ulcer Neurological: Present: confusion, dizziness, restless legs Oncology - Exam - Constitutional Vitals: Temp Pulse Resp BP Pulse Ox 97.9 F 76 15 113/66 96 02/14/17 11:17 02/14/17 11:17 02/14/17 11:17 02/14/17 11:17 02/14/17 11:17 General appearance: morbidly obese, no febrile, no no acute distress - Head Head exam: Present: normal inspection - Neck Neck exam: Absent: lymphadenopathy - Respiratory Respiratory exam: Present: CTAB - Cardiovascular Cardiovascular exam: Present: RRR, +S1, +S2 - GI/Abdominal GI/Abdominal exam: Present: normal bowel sounds, soft. Absent: guarding, tenderness - Extremities Exam Extremities exam: Present: pedal edema - Expanded Lower Extremity Exam Lower Leg exam: Present: swelling (RLE 2-3+) - Neurological Exam Neurological exam: Present: strengths equal and symetr throughout. Absent: no focal deficits Additional comments: drowsy, will arouse to voice - Skin Skin exam: Present: normal color Oncology - Results Labs: Short CBC 02/14/17 Range/Units 05:08 WBC 12.8 H (4.3-11.1) K/mcL Hgb 8.9 L (12.9-16.9) g/dL Hct 27.1 L (37.5-50.1) % Plt Count 110 L (140-400) K/mcL Neutrophils # 9.7 H (1.6-8.9) K/mcL BMP 02/14/17 04:36 Sodium 141 Potassium 3.5 Chloride 110 H Carbon Dioxide 24 BUN 51 H Creatinine 1.08 Glucose 82 Calcium 8.1 L Consult Discharge Plan - Plan [facility]errals: [facility] [Primary Care Provider] -
--- NOTE | 2017-02-14 13:59 | Internal Med Progress Note ---
Date of Encounter: 02/14/17 Time of Encounter: 10:30 - Assessment and plan (1) GI bleed Current Visit: Yes Status: Acute Assessment and plan: No new episodes of melena or hematochezia. Continue to monitor blood counts. GI consult appreciated. Plan for upper GI endoscopy hopefully tomorrow. Give FFP to bring INR less than 2. High risk for complications due to prior DVT and with acute GI bleed. Qualifiers: GI bleed type/associated pathology: anorectal hemorrhage Qualified Code(s) : K62.5 - Hemorrhage of anus and rectum (2) Anemia Current Visit: Yes Status: Acute Assessment and plan: Hemoglobin is 8.9 today. No new episodes of melena. Gastroenterology consultation. Plan to do upper GI endoscopy when INR is less than 2. Qualifiers: Anemia type: iron deficiency Iron deficiency anemia type: chronic blood loss Qualified Code(s): D50.0 - Iron deficiency anemia secondary to blood loss (chronic) (3) DVT (deep venous thrombosis) Current Visit: Yes Status: Acute Assessment and plan: Patient with recent right posterior tibial vein thrombus. Was on Eliquis. Currently on hold due to GI bleed. We will consult hematology for recommendations for anticoagulation versus filter placement in this patient with GI bleed. 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 Frequent repositioning Qualifiers: Pressure ulcer location: sacral region Pressure ulcer stage: stage 2 Qualified Code(s): L89.152 - Pressure ulcer of sacral region, stage 2 (5) Diarrhea Current Visit: Yes Status: Resolved Assessment and plan: No new episodes of diarrhea. Qualifiers: Diarrhea type: unspecified type Qualified Code(s): R19.7 - Diarrhea, unspecified (6) Hypertension Current Visit: Yes Status: Chronic Assessment and plan: Well-controlled Qualifiers: Hypertension type: essential hypertension Qualified Code(s): I10 - Essential (primary) hypertension - Subjective Interval history: Patient is lying in bed right now. Family is very bedside. Appears comfortable. He awakes and answers questions but falling asleep easily. Denies any abdominal pain at this time. No new episodes of hematochezia or melena. According to the family, his last bowel movement was on Saturday. She did receive 2 pills of Imodium after that and has had no further bowel movements. - Constitutional Vitals: Temp Pulse Resp BP Pulse Ox 98.1 F 75 16 129/65 96 02/14/17 12:42 02/14/17 12:42 02/14/17 12:42 02/14/17 12:42 02/14/17 11:17 General appearance: Present: A&O X 3, no acute distress, answers questions appropriately - Respiratory Respiratory exam: Present: CTAB. Absent: accessory muscle use, rales, rhonchi, wheezes - Cardiovascular Cardiovascular exam: Present: RRR, +S1, +S2. Absent: diastolic murmur, gallop, rubs, systolic murmur - GI/Abdominal GI/Abdominal exam: Present: normal bowel sounds, soft, tenderness (Left lower quadrant), no peritoneal signs. Absent: distended - Extremities Exam Extremities exam: Present: warm, radial pulses palpable and symmetrical. Absent : calf tenderness, cyanotic, pedal edema - Neurological Exam Neurological exam: Present: alert, oriented X3, no focal deficits. Absent: facial droop, speech deficit Internal Medicine: Result - Labs CBC & Chem 7: 02/14/17 05:08 02/14/17 04:36 Labs: Short CBC 02/14/17 Range/Units 05:08 WBC 12.8 H (4.3-11.1) K/mcL Hgb 8.9 L (12.9-16.9) g/dL Hct 27.1 L (37.5-50.1) % Plt Count 110 L (140-400) K/mcL Neutrophils # 9.7 H (1.6-8.9) K/mcL BMP 02/14/17 04:36 Sodium 141 Potassium 3.5 Chloride 110 H Carbon Dioxide 24 BUN 51 H Creatinine 1.08 Glucose 82 Calcium 8.1 L - ABG Interpretation ABG results: PT/INR, D-dimer PT 25.1 Seconds (9.4-12.1) H 02/14/17 05:08 Consult Discharge Plan - Plan [facility]errals: [facility] [Primary Care Provider] -
[2017-02-14] MEDS ORDERED: COLLAGEN TP SCH (14:15)
[2017-02-14] MEDS ORDERED: ALOE VERA TP SCH (14:15)
[2017-02-14] MEDS ORDERED: [UNRECOGNIZED DRUG - OTHER] TP SCH (14:15)
[2017-02-14] MEDS: Gabapentin 100 MG CAPSULE PO SCH ×3 (16:19→20:01)
[2017-02-14] MEDS: Lidocaine OINT 35.44 GM TUBE TP SCH ×2 (16:49→20:01)
[2017-02-14 18:32] LABS: Hematocrit 26.6 % (37.5-50.1); Hemoglobin 8.5 g/dL (12.9-16.9)
[2017-02-15 01:13] LABS: Basophils % 0.3 %; Eosinophils # 0.4 K/mcL (0.0-0.6); Eosinophils % 3.5 %; Hematocrit 25.3 % (37.5-50.1); Hemoglobin 8.2 g/dL (12.9-16.9); Immature Granulocytes % 0.5 % (0-4); Lymphocytes # 1.2 K/mcL (0.6-4.6); Lymphocytes % 11.5 %; Mean Corpuscular HGB Conc 32.4 g/dL (31.6-35.5); Mean Corpuscular Hemoglobin 30.6 pg (28.0-33.3); Mean Corpuscular Volume 94.4 fL (83.0-100.0); Mean Platelet Volume 14.3 fL (9.4-12.4); Monocytes # 0.6 K/mcL (0.0-1.3); Monocytes % 5.7 %; Neutrophils # 8.5 K/mcL (1.6-8.9); Platelet Count 115 K/mcL (140-400); Red Blood Count 2.68 M/mcL (4.19-5.50); Red Cell Distribution Width 16.5 % (11.5-14.5); Segmented Neutrophils % 78.5 %
[2017-02-15] MEDS ORDERED: *HR* OxyCODONE Immed Rel 5 MG TABLET PO PRN (01:13)
[2017-02-15 01:42] LABS: BUN/Creatinine Ratio 34 (6-26); Blood Urea Nitrogen 32 mg/dL (8-23); Calcium 8.3 mg/dL (8.6-10.3); Carbon Dioxide 25 mEq/L (23-29); Chloride 108 mEq/L (98-107); Glucose 73 mg/dL (70-105); Osmolality,Calculated 297 (280-300); Potassium 3.4 mEq/L (3.5-5.1); Sodium 141 mEq/L (136-145); eGFR For African Americans > 60 (> 60); eGFR For Non-African Americans > 60 (> 60)
[2017-02-15] MEDS: Pantoprazole 80 MG in 0.9 % Sodium Chloride 250 ML IVC SCH (05:02)
--- NOTE | 2017-02-15 07:51 | Anesthesia Evaluation PreOp ---
<Erika Gifford - Last Filed: 02/15/17 07:50> Date of Encounter: 02/15/17 - Past History Cardiac History: HTN, Hyperlipidemia, Other (DVT) Pulmonary History: Smoker [employer] History: Other (dementia) Alcohol Use: rarely Drug use: none Medications and Allergies Aloe Vera/Collagen [Aloe [place] Cleansing Foam] 1 appl TP AD 01/09/17 [History] Azelastine 0.1% Nasal [place] [Astelin] 1 spray NS BID 01/09/17 [History] Balsam Wilder/[place] Oil [Venelex Ointment] 1 appl TP BID 01/09/17 [History] Bisacodyl [Dulcolax] 10 mg PO DAILY PRN 01/09/17 [History] Cholecalciferol (D-3) [Vitamin D] 2,000 unit PO DAILY 01/09/17 [History] Cyanocobalamin (Vitamin B-12) [Vitamin B12] 1,000 mcg PO DAILY 01/09/17 [History ] Diclofenac Sodium [Voltaren] 4 gm TP QID PRN 01/09/17 [History] Folic Acid 1 mg PO DAILY 01/09/17 [History] Gabapentin [Neurontin] 200 mg PO TID 01/09/17 [History] Hexamethyldisiloxane/Acryl-Improvement Advisor [No Sting Skin Prep Wipes] 1 each TP AD 01/09/17 [History] Hydrocortisone 1% OINT [Cortaid] 1 appl TP BID PRN 01/09/17 [History] Hydrocortisone 2.5% CREAM [Cortaid] 1 appl TP BID 01/09/17 [History] Hydrocortisone/Pramoxine [Proctofoam-Hc 1%-1% Foam] 1 applic RC BID PRN [History] Hydrophilic Cream [[place]] 1 appl TP DAILY 01/09/17 [History] Ketoconazole Shampoo [Nizoral Shampoo] 1 appl TP DAILY 01/09/17 [History] Lidocaine 1 appl TP QID 01/09/17 [History] Lisinopril [Zestril] 40 mg PO DAILY 01/09/17 [History] Nystatin OINT [Mycostatin] 1 appl TP BID 01/09/17 [History] Nystatin POWDER [Nystop] 1 appl TP BID 01/09/17 [History] Potassium Chloride [K-Tab ER] 20 meq PO DAILY 01/09/17 [History] Propylene Glycol/Peg 400 [Systane 0.3-0.4% Eye Drops] 1 drop BOTH EYES QID 01/09 [History] Ranitidine HCl [Zantac] 150 mg PO DAILY 01/09/17 [History] Selenium Sulfide [Selrx] 1 appl TP 2XW 01/09/17 [History] Sennosides/Docusate Sodium [Senna Plus] 2 each PO DAILY 01/09/17 [History] Sod Chloride/B-6/Zinc Acet/Ca [Wound Cleanser] 3 - 5 spray TP BID 01/09/17 [ History] Tamsulosin [Flomax] 0.4 mg PO HS 01/09/17 [History] Terbinafine HCl [Terbinafine] 1 appl TP BID 01/09/17 [History] Triamcinolone Acet 0.1% CRM [Kenalog] 1 appl TP BID 01/09/17 [History] Triamcinolone Acetonide [Nasacort] 2 spray NS DAILY 01/09/17 [History] Flavia Kirby [Preparation H] 1 each TP BID PRN 01/09/17 [History] Apixaban [Eliquis] 5 mg PO BID 02/13/17 [History] Cleansing Cloth, Adult 1 each TP Q3H PRN 02/13/17 [History] Furosemide [Lasix] 40 mg PO QAM 02/13/17 [History] 3 Allergy/AdvReac Type Severity Reaction Status Date / Time atorvastatin Allergy Hives Verified 01/09/17 19:10 codeine Allergy Hives Verified 01/09/17 19:10 etodolac Allergy Hives Verified 01/09/17 19:10 losartan Allergy Hives Verified 01/09/17 19:10 naproxen Allergy Hives Verified 01/09/17 19:10 tramadol Allergy Hives Verified 01/09/17 19:10 duloxetine AdvReac See Verified 02/13/17 19:35 Comments Anesthesia Results - Labs 02/15/17 00:35 02/15/17 00:35 - Imaging Additional studies: TTE: EV/EV echocardiogram Impressions: LVEF 60%. Normal LV chamber size and function. Mild concentric left ventricular hypertrophy. Atypical septal motion consistent with bundle branch block. Mild left ventricular diastolic dysfunction. Grossly, the right ventricle appears dilated with normal function. Moderate-severe pulmonary hypertension. No obvious significant valvular dysfunction. <Chi Salas Ze - Last Filed: 02/15/17 09:16> Date of Encounter: 02/15/17 Time of Encounter: 09:15 - Past History Planned Operation: EGD - Meds/Allergy Pre-op Review Medications Reviewed: Yes Allergies Reviewed: Yes Beta Blockers on Current Med List: No Anesthesia Results - Labs 02/15/17 00:35 02/15/17 00:35 Anesthesia Exam Selected Entries 02/15/17 08:13 Temperature 98.2 F Pulse Rate 72 Respiratory Rate 18 Blood Pressure 107/64 O2 Sat by Pulse Oximetry 98 NPO (# of Hours): 8 - HEENT Pupil (Motor): EOMI Mallampati: II Teeth: Missing, Poor dentition Oral Opening: Greater than 3 - [employer] LOC: Oriented [employer] Motor: Normal RUE, Normal LUE, Normal RLE, Normal LLE, Normal Face [employer] Sensory: Normal: RUE, LUE, RLE, LLE, Face - Cardiac Rhythm: Regular Murmur: None - Pulmonary Breath Sounds: bilateral Clear Respiratory Effort: Symmetrical Anesthesia Assess/Plan ASA Score: 3 Modified Daisy Scale for Level of Consciousness: Cooperative, oriented, and tranquil Anesthetic Plan: MAC Monitoring Plan: Standard Monitors Recovery Plan: Other (discussed MAC with DEBBIE (Vida Hurd) and agrees to proceed)
[2017-02-15] MEDS ORDERED: Simethicone 40 MG/0.6 ML MLS IR ONE ×2 (08:18→10:10)
[2017-02-15] MEDS ORDERED: Tetracaine/Benzocaine/Butamben 200MG/SPRAY (100SPY/BOT) MM ONE ×2 (08:18→10:10)
[2017-02-15] MEDS ORDERED: Lidocaine -MPF 2% 2 ML VIAL ONE (08:50)
[2017-02-15] MEDS ORDERED: *HR* Propofol 200 MG/20 ML VIAL IVP ONE (08:51)
[2017-02-15] MEDS ORDERED: NON-FORMULARY MEDICATION 1 EACH EACH (Ranitidine Hcl [Zantac] 150 MG) PO SCH (09:00)
[2017-02-15] MEDS ORDERED: EPHEDrine 50 MG/ML VIAL ONE (09:02)
[2017-02-15] MEDS: Lidocaine OINT 35.44 GM TUBE TP SCH ×4 (09:52→20:51)
[2017-02-15 09:57] LABS: INR 1.2; Prothrombin Time 12.9 Seconds (9.4-12.1)
--- NOTE | 2017-02-15 11:50 | Oncology Inp Progress Note ---
Date of Encounter: 02/15/17 Time of Encounter: 11:50 (1) DVT (deep venous thrombosis) Current Visit: Yes Status: Acute Assessment and plan: Newly diagnosed DVT and Eliquis started about 1 month ago. Agree with plan to currently hold Eliquis. Bilateral venous doppler shows continued acute DVT in right posterior tibial. GI Bleed. Hgb currently stable following 2 units PRBC. Reviewed GI recommendations. EGD shows gastric ulcer with no active bleeding. Due to risk for further DVT or extension of DVT as he has not received recommended anticoagulation due to bleed, would appreciate vascular surgery consult for potential need for IVC filter. Patient is not a good candidate for continued anticoagulation given his current GI bleed and risk for further bleeding with presence of ulcer. Discussed recommendation with hospitalist team. Will order further anemia laboratory workup including folate, B12, iron panel, ferritin, blood smear, SPEP and light chains. Leukocytosis resolved, most likely reactive from GI bleed. 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 Rodriguez is more alert today than previous assessment yesterday. He reports pain to RLE and sacrum. Denies abdominal pain, chest pain, dizziness, SOB, nausea or vomiting. He does not report any further rectal bleeding/black tarry stools since his admission. - Constitutional Vitals: Vital Signs Temp Pulse Resp BP Pulse Ox 02/15/17 10:45 80 107/66 88 02/15/17 10:15 79 111/65 94 02/15/17 10:00 80 109/74 97 02/15/17 09:45 82 122/63 98 02/15/17 09:33 97.3 F L 80 12 122/70 97 02/15/17 08:13 98.2 F 72 18 107/64 98 02/15/17 06:49 98.2 F 78 18 118/58 100 02/15/17 04:21 97.8 F 79 17 116/59 95 02/14/17 23:29 97.5 F L 74 18 97/57 95 02/14/17 19:10 98.0 F 73 18 104/59 95 02/14/17 16:44 97.8 F 74 18 118/76 99 02/14/17 12:57 97.5 F L 82 16 126/72 02/14/17 12:42 98.1 F 75 16 129/65 02/14/17 12:33 97.3 F L 76 16 125/74 Intake and Output 02/14/17 02/15/17 02/15/17 23:59 07:59 15:59 Intake Total 350 / 350 250 / 250 Output Total 850 / 850 Balance 350 / 350 -600 / -600 Intake: IV Fluids 250 / 250 250 / 250 Protonix 80 MG In 0.9 % Sodium 250 / 250 250 / 250 Chloride 250 ML @ 25 mls/hr IVC .Q10H DENISE Rx#:[id number] Oral 100 / 100 Output: Straight Cath 350 / 350 Catheter 500 / 500 Other: Meal Dinner Percent of Meal Consumed 15% Weight 131.2 kg Patient Weight 02/15/17 23:59 Weight 131.2 kg General appearance: cooperative, morbidly obese, no acute distress, no febrile - Head Head exam: Present: normal inspection - Neck Neck exam: Absent: lymphadenopathy, tenderness - Respiratory Respiratory exam: Present: CTAB - Cardiovascular Cardiovascular exam: Present: RRR, +S1, +S2 - GI/Abdominal GI/Abdominal exam: Present: normal bowel sounds, soft. Absent: guarding, tenderness - Extremities Exam Extremities exam: Present: pedal edema Additional comments: right>left - Neurological Exam Neurological exam: Present: alert, oriented X3, strengths equal and symetr throughout - Skin Skin exam: Present: normal color Oncology: Obj Data - Labs CBC & Chem 7: 02/15/17 00:35 02/15/17 00:35 - Impressions Impressions Abdomen/Pelvis CT 02/14/17 14:07 IMPRESSION: 1. Infiltration of the fat seen centrally in the retroperitoneum in the pelvis. This was not present on the previous CT done last month. No loculated fluid collections are seen. An inflammatory or infectious process could give this appearance. Extension of inflammatory changes from a cystitis is a consideration. Discitis involving the L5-S1 disc space is a consideration. This would be an unlikely appearance for a neoplastic process but a follow-up abdominal CT or MRI with contrast would be helpful for further evaluation. 2. Evidence for old granulomatous disease. 3. Cholelithiasis without evidence for acute cholecystitis. D/ / 02/14/2017 16:05:36 Randolph Schmidt MD / sven Interpreting Provider: Randolph Schmidt MD - ABG Interpretation ABG results: PT/INR, D-dimer PT 12.9 Seconds (9.4-12.1) H 02/15/17 09:40 Consult Discharge Plan - Plan [facility]errals: [facility] [Primary Care Provider] -
[2017-02-15] MEDS: Gabapentin 100 MG CAPSULE PO SCH ×3 (14:57→20:46)
--- NOTE | 2017-02-15 15:06 | Internal Med Progress Note ---
Date of Encounter: 02/15/17 Time of Encounter: 10:35 - Assessment and plan (1) GI bleed Current Visit: Yes Status: Acute Assessment and plan: Upper GI endoscopy shows normal esophagus with gastritis. Nonbleeding ulcer present with no stigmata of bleeding. Patient also has duodenitis. We will continue to monitor hemoglobin levels. If blood counts drop further or patient continues to have hematochezia once he started on a diet, he will need colonoscopy. High risk for complications. Qualifiers: Qualified Code(s): K62.5 - Hemorrhage of anus and rectum (2) Anemia Current Visit: Yes Status: Acute Assessment and plan: Hemoglobin levels remain stable at this time. Continue to hold Eliquis. We will continue to monitor blood counts. Qualifiers: Qualified Code(s): D50.0 - Iron deficiency anemia secondary to blood loss ( chronic) (3) DVT (deep venous thrombosis) Current Visit: Yes Status: Acute Assessment and plan: Venous Doppler shows acute right posterior tibial vein thrombus. Discussed with oncology. Recommend IVC filter placement. Consult to interventional radiology to place IVC filter. Hold off on anticoagulation at this time due to GI bleed. 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 Supportive care with topical Allevyn. Patient has also declined functional capacity and generalized weakness. We will consult physical therapy for evaluation. Qualifiers: Qualified Code(s): L89.152 - Pressure ulcer of sacral region, stage 2 (5) Diarrhea Current Visit: Yes Status: Resolved Assessment and plan: No new episodes of diarrhea. Will start patient on a diet after IVC filter placement. Qualifiers: Qualified Code(s): R19.7 - Diarrhea, unspecified (6) Hypertension Current Visit: Yes Status: Chronic Assessment and plan: Continue lisinopril. Fairly controlled. Qualifiers: Qualified Code(s): I10 - Essential (primary) hypertension - Subjective Interval history: 76-year-old male patient with recently diagnosed right posterior tibial vein DVT on Eliquis presented with complaints of melena. Significant drop in hemoglobin in the past 1 month. Eliquis held. EGD done today. Hematology/ oncology following. Patient underwent upper GI endoscopy earlier today. Tolerated procedure well. Doing well postprocedure. Any new complaints at this time. No nausea or vomiting. No new episodes of hematemesis or hematochezia. - Constitutional Vitals: Temp Pulse Resp BP Pulse Ox 97.3 F L 78 12 106/63 100 02/15/17 09:33 02/15/17 12:45 02/15/17 09:33 02/15/17 12:45 02/15/17 12:45 General appearance: Present: no acute distress, answers questions appropriately Exam: Somnolent but easily awakes. Answers questions appropriately. - Neck Neck exam general surgery: Present: supple, trachea midline. Absent: lymphadenopathy - Respiratory Respiratory exam: Present: CTAB. Absent: accessory muscle use, rales, rhonchi, wheezes - Cardiovascular Cardiovascular exam: Present: RRR, +S1, +S2. Absent: diastolic murmur, gallop, rubs, systolic murmur - GI/Abdominal GI/Abdominal exam: Present: distended, normal bowel sounds, soft, no peritoneal signs. Absent: tenderness - Extremities Exam Extremities exam: Present: warm, radial pulses palpable and symmetrical. Absent : calf tenderness, cyanotic, pedal edema - Neurological Exam Neurological exam: Present: alert, oriented X3, no focal deficits. Absent: facial droop, speech deficit - Skin Skin exam: Present: dry, intact Internal Medicine: Result - Labs CBC & Chem 7: 02/15/17 00:35 02/15/17 00:35 Labs: Short CBC 02/14/17 02/15/17 Range/Units 18:01 00:35 WBC 10.8 (4.3-11.1) K/mcL Hgb 8.5 L 8.2 L (12.9-16.9) g/dL Hct 26.6 L 25.3 L (37.5-50.1) % Plt Count 115 L (140-400) K/mcL Neutrophils # 8.5 (1.6-8.9) K/mcL BMP 02/15/17 00:35 Sodium 141 Potassium 3.4 L Chloride 108 H Carbon Dioxide 25 BUN 32 H Creatinine 0.93 Glucose 73 Calcium 8.3 L - ABG Interpretation ABG results: PT/INR, D-dimer PT 12.9 Seconds (9.4-12.1) H 02/15/17 09:40 - Impressions Impressions Abdomen/Pelvis CT 02/14/17 14:07 IMPRESSION: 1. Infiltration of the fat seen centrally in the retroperitoneum in the pelvis. This was not present on the previous CT done last month. No loculated fluid collections are seen. An inflammatory or infectious process could give this appearance. Extension of inflammatory changes from a cystitis is a consideration. Discitis involving the L5-S1 disc space is a consideration. This would be an unlikely appearance for a neoplastic process but a follow-up abdominal CT or MRI with contrast would be helpful for further evaluation. 2. Evidence for old granulomatous disease. 3. Cholelithiasis without evidence for acute cholecystitis. D/ / 02/14/2017 16:05:36 Randolph Schmidt MD / sven Interpreting Provider: Randolph cShmidt MD Consult Discharge Plan - Plan [facility]errals: [facility] [Primary Care Provider] -
--- NOTE | 2017-02-15 15:53 | IR Procedure Note ---
Date of procedure: 02/15/17 Consent Obtained: Verbal consent, Written consent Timeout: Correct patient and procedure verified, Correct site verified, Time out performed, Skin prep completed Local anesthetic: Lidocaine 1% Indications: DVT, GI bleed Procedure Performed: IVC filter insertion Was there an bakery assistant present: No Site/Technique: LEILA Results/Findings: no thrombus in IVC Estimated blood loss (cc): 4 Complications: None; Tolerated procedure well Post Procedure Treatment Plan: bedrest with HOB > 30 degrees x 1 hour Specimen: none
[2017-02-15] MEDS: Folic Acid 1 MG TABLET PO SCH (17:15)
[2017-02-15] MEDS: Cholecalciferol (D-3) 1,000 UNIT TABLET PO SCH (17:15)
[2017-02-15] MEDS: Cyanocobalamin (B-12) 1,000 MCG TABLET PO SCH (17:15)
[2017-02-15] MEDS: Pantoprazole 40 MG VIAL IVP SCH (17:15)
[2017-02-15] MEDS: Lisinopril 20 MG TABLET PO SCH (17:15)
[2017-02-15] MEDS: *HR* OxyCODONE Immed Rel 5 MG TABLET PO PRN (17:18)
[2017-02-15 18:15] LABS: Hematocrit 25.5 % (37.5-50.1); Hemoglobin 8.3 g/dL (12.9-16.9)
--- NOTE | 2017-02-15 18:59 | Electrocardiograph Report ---
[place] [id number] Test Date: 2017-02-13 Pat Name: Jayden Rodriguez Department: 103 Room: 2A43 Gender: M Administrative Specialist: : 1940 Requested By: Sanya Esteves Order Number: [id number] Reading MD: Ruperto Tsai MD Measurements Intervals [place] Rate: 84 P: 85 NC: 217 QRS: -57 QRSD: 132 T: 100 QT: 398 QTc: 439 Interpretive Statements SINUS RHYTHM WITH FIRST DEGREE AV BLOCK MARKED LEFT AXIS DEVIATION INTRAVENTRICULAR CONDUCTION DELAY LEFT VENTRICULAR HYPERTROPHY AND ST-T CHANGE Electronically Signed On 02-15-2017 18:58:34 EST by Ruperto Tsai MD
[2017-02-16 01:08] LABS: Basophils % 0.1 %; Eosinophils # 0.3 K/mcL (0.0-0.6); Eosinophils % 3.3 %; Immature Granulocytes % 0.5 % (0-4); Lymphocytes # 1.3 K/mcL (0.6-4.6); Lymphocytes % 13.2 %; Mean Corpuscular Hemoglobin 30.3 pg (28.0-33.3); Mean Corpuscular Volume 94.7 fL (83.0-100.0); Mean Platelet Volume 14.2 fL (9.4-12.4); Monocytes # 0.6 K/mcL (0.0-1.3); Monocytes % 5.8 %; Neutrophils # 7.8 K/mcL (1.6-8.9); Platelet Count 123 K/mcL (140-400); Red Blood Count 2.64 M/mcL (4.19-5.50); Red Cell Distribution Width 15.8 % (11.5-14.5); Segmented Neutrophils % 77.1 %
[2017-02-16] MEDS: *HR* OxyCODONE Immed Rel 5 MG TABLET PO PRN ×3 (01:08→16:37)
[2017-02-16 03:14] LABS: % Iron Saturation 16 % (20-55); Iron 33 mcg/dL (65-175); Transferrin 145 mg/dL (203-362)
[2017-02-16 06:29] LABS: Hemoglobin 8.2 g/dL (12.9-16.9)
[2017-02-16] MEDS: Gabapentin 100 MG CAPSULE PO SCH ×3 (09:49→20:13)
[2017-02-16] MEDS: Folic Acid 1 MG TABLET PO SCH (09:49)
[2017-02-16] MEDS: Lidocaine OINT 35.44 GM TUBE TP SCH ×4 (09:49→20:14)
[2017-02-16] MEDS: Cholecalciferol (D-3) 1,000 UNIT TABLET PO SCH (09:50)
[2017-02-16] MEDS: Cyanocobalamin (B-12) 1,000 MCG TABLET PO SCH (09:50)
[2017-02-16] MEDS: Pantoprazole 40 MG VIAL IVP SCH (09:50)
[2017-02-16] MEDS: Lisinopril 20 MG TABLET PO SCH (09:50)
--- NOTE | 2017-02-16 11:03 | Internal Med Progress Note ---
Date of Encounter: 02/16/17 Time of Encounter: 09:50 - Assessment and plan (1) DVT prophylaxis Current Visit: Yes Status: Acute Assessment and plan: GIB SCDs only (2) Morbid obesity Current Visit: Yes Status: Chronic Assessment and plan: Lifestyle modifications (3) Hypertension Current Visit: Yes Status: Chronic Assessment and plan: Continue lisinopril. Fairly controlled. Qualifiers: Hypertension type: essential hypertension Qualified Code(s): I10 - Essential (primary) hypertension (4) DVT (deep venous thrombosis) Current Visit: Yes Status: Acute Assessment and plan: Venous Doppler shows acute right posterior tibial vein thrombus. Discussed with oncology. 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 Nonbleeding ulcer present with no stigmata of bleeding. Patient also has duodenitis. Hb stable Qualifiers: GI bleed type/associated pathology: anorectal hemorrhage Qualified Code(s) : K62.5 - Hemorrhage of anus and rectum (7) Anemia Current Visit: Yes Status: Acute Assessment and plan: Hemoglobin levels remain stable at this time. Continue to hold Eliquis. We will continue to monitor blood counts. 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 Supportive care with topical Allevyn. Patient has also declined functional capacity and generalized weakness. We will consult physical therapy for evaluation. Qualifiers: Pressure ulcer location: sacral region Pressure ulcer stage: stage 2 Qualified Code(s): L89.152 - Pressure ulcer of sacral region, stage 2 - Subjective Interval history: Seen Initial encounter Information obtained from chart and patient. 76-year-old male, wheelchair bound, STAGE II sacral decubitus ulcer and deconditioning. He has a past medical history of hypertension. He is admitted for GI bleed and acute blood loss anemia is secondary to anticoagulation He is s/p IVC filter and EGD No new complains Hb is stable Patient reports having a wheel chair, hosp bed, as well as 3ice weekly ptot at home He is requesting one more day in hospital \Otherwise stable - Constitutional Vitals: Temp Pulse Resp BP Pulse Ox 98.2 F 65 16 130/73 99 02/16/17 07:14 02/16/17 07:14 02/16/17 07:14 02/16/17 07:14 02/16/17 07:14 General appearance: Present: A&O X 3, morbidly obese, pleasant, no acute distress, answers questions appropriately - Head Head exam: Present: atraumatic, normocephalic - Eye Eye exam: Present: PERRL, conjuntiva pink, sclera anicteric Pupils: Present: PERRL - Neck Neck exam general surgery: Present: supple, trachea midline. Absent: lymphadenopathy - Respiratory Respiratory exam: Present: CTAB. Absent: accessory muscle use, rales, rhonchi, wheezes - Cardiovascular Cardiovascular exam: Present: RRR, +S1, +S2. Absent: diastolic murmur, gallop, rubs, systolic murmur - GI/Abdominal GI/Abdominal exam: Present: normal bowel sounds, soft, no peritoneal signs. Absent: distended, tenderness - Additional comments: deferred - Extremities Exam Additional comments: assymetric RLE edema - Neurological Exam Neurological exam: Present: alert, CN II-XII intact, oriented X3, no focal deficits. Absent: pronater drift, facial droop, speech deficit - Skin Skin exam: Present: dry Internal Medicine: Result - Labs CBC & Chem 7: 02/16/17 06:05 02/15/17 00:35 Labs: Short CBC 02/15/17 02/16/17 02/16/17 Range/Units 17:49 00:35 06:05 WBC 10.2 (4.3-11.1) K/mcL Hgb 8.3 L 8.0 L 8.2 L (12.9-16.9) g/dL Hct 25.5 L 25.0 L 25.0 L (37.5-50.1) % Plt Count 123 L (140-400) K/mcL Neutrophils # 7.8 (1.6-8.9) K/mcL - ABG Interpretation ABG results: PT/INR, D-dimer PT 12.9 Seconds (9.4-12.1) H 02/15/17 09:40 Consult Discharge Plan - Plan [facility]errals: [facility] [Primary Care Provider] -
[2017-02-17] MEDS: *HR* OxyCODONE Immed Rel 5 MG TABLET PO PRN ×4 (01:12→22:10)
[2017-02-17 08:07] LABS: Basophils % 0.3 %; Eosinophils # 0.3 K/mcL (0.0-0.6); Hematocrit 26.8 % (37.5-50.1); Hemoglobin 8.6 g/dL (12.9-16.9); Immature Granulocytes % 0.7 % (0-4); Lymphocytes # 1.1 K/mcL (0.6-4.6); Lymphocytes % 14.3 %; Mean Corpuscular HGB Conc 32.1 g/dL (31.6-35.5); Mean Corpuscular Hemoglobin 30.4 pg (28.0-33.3); Mean Corpuscular Volume 94.7 fL (83.0-100.0); Mean Platelet Volume 13.8 fL (9.4-12.4); Monocytes # 0.6 K/mcL (0.0-1.3); Monocytes % 7.3 %; Neutrophils # 5.5 K/mcL (1.6-8.9); Platelet Count 132 K/mcL (140-400); Red Blood Count 2.83 M/mcL (4.19-5.50); Red Cell Distribution Width 15.3 % (11.5-14.5); Segmented Neutrophils % 73.4 %
[2017-02-17] MEDS: Lisinopril 20 MG TABLET PO SCH (08:19)
[2017-02-17] MEDS: Folic Acid 1 MG TABLET PO SCH (08:19)
[2017-02-17] MEDS: Cholecalciferol (D-3) 1,000 UNIT TABLET PO SCH (08:20)
[2017-02-17] MEDS: Gabapentin 100 MG CAPSULE PO SCH ×3 (08:20→19:08)
[2017-02-17] MEDS: Cyanocobalamin (B-12) 1,000 MCG TABLET PO SCH (08:20)
[2017-02-17] MEDS: Pantoprazole 40 MG VIAL IVP SCH (08:21)
[2017-02-17] MEDS: Lidocaine OINT 35.44 GM TUBE TP SCH ×4 (08:21→20:06)
[2017-02-17 08:23] LABS: BUN/Creatinine Ratio 15 (6-26); Blood Urea Nitrogen 12 mg/dL (8-23); Calcium 8.3 mg/dL (8.6-10.3); Carbon Dioxide 31 mEq/L (23-29); Chloride 104 mEq/L (98-107); Glucose 92 mg/dL (70-105); Osmolality,Calculated 287 (280-300); Potassium 3.4 mEq/L (3.5-5.1); Sodium 139 mEq/L (136-145); eGFR For African Americans > 60 (> 60); eGFR For Non-African Americans > 60 (> 60)
--- NOTE | 2017-02-17 13:34 | Internal Med Progress Note ---
Date of Encounter: 02/17/17 Time of Encounter: 13:32 - Assessment and plan (1) DVT prophylaxis Current Visit: Yes Status: Acute Assessment and plan: GIB SCDs only (2) Morbid obesity Current Visit: Yes Status: Chronic Assessment and plan: Lifestyle modifications (3) Hypertension Current Visit: Yes Status: Chronic Assessment and plan: Continue lisinopril. Fairly controlled. Qualifiers: Hypertension type: essential hypertension Qualified Code(s): I10 - Essential (primary) hypertension (4) DVT (deep venous thrombosis) Current Visit: Yes Status: Acute Assessment and plan: Venous Doppler shows acute right posterior tibial vein thrombus. Discussed with oncology. 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 Nonbleeding ulcer present with no stigmata of bleeding. Patient also has duodenitis. Hb stable Qualifiers: GI bleed type/associated pathology: anorectal hemorrhage Qualified Code(s) : K62.5 - Hemorrhage of anus and rectum (7) Anemia Current Visit: Yes Status: Acute Assessment and plan: Hemoglobin levels remain stable at this time. Continue to hold Eliquis. We will continue to monitor blood counts. 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 Supportive care with topical Allevyn. Patient has also declined functional capacity and generalized weakness. We will consult physical therapy for evaluation. Qualifiers: Pressure ulcer location: sacral region Pressure ulcer stage: stage 2 Qualified Code(s): L89.152 - Pressure ulcer of sacral region, stage 2 - Subjective Interval history: Seen 76-year-old male, wheelchair bound, STAGE II sacral decubitus ulcer and deconditioning. He has a past medical history of hypertension. He is admitted for GI bleed and acute blood loss anemia is secondary to anticoagulation He is s/p IVC filter and EGD No new complains Hb is stable Patient reports having a wheel chair, hosp bed, as well as 3ice weekly ptot at home PTOT have recommended SNF/ECF placement, will consult SW patient is otherwise medically stable Discontinue urinary catheter - Constitutional Vitals: Temp Pulse Resp BP Pulse Ox 97.6 F 62 16 124/69 98 02/17/17 08:33 02/17/17 08:33 02/17/17 08:33 02/17/17 08:33 02/17/17 08:33 General appearance: Present: A&O X 3, morbidly obese, pleasant, no acute distress, answers questions appropriately - Head Head exam: Present: atraumatic, normocephalic - Eye Eye exam: Present: PERRL, conjuntiva pink, sclera anicteric Pupils: Present: PERRL - Neck Neck exam general surgery: Present: supple, trachea midline. Absent: lymphadenopathy - Respiratory Respiratory exam: Present: CTAB. Absent: accessory muscle use, rales, rhonchi, wheezes - Cardiovascular Cardiovascular exam: Present: RRR, +S1, +S2. Absent: diastolic murmur, gallop, rubs, systolic murmur - GI/Abdominal GI/Abdominal exam: Present: normal bowel sounds, soft, no peritoneal signs. Absent: distended, tenderness - Extremities Exam Additional comments: assymetric RLE edema Internal Medicine: Result - Labs CBC & Chem 7: 02/17/17 07:31 02/17/17 07:31 Labs: Short CBC 02/17/17 Range/Units 07:31 WBC 7.5 (4.3-11.1) K/mcL Hgb 8.6 L (12.9-16.9) g/dL Hct 26.8 L (37.5-50.1) % Plt Count 132 L (140-400) K/mcL Neutrophils # 5.5 (1.6-8.9) K/mcL BMP 02/17/17 07:31 Sodium 139 Potassium 3.4 L Chloride 104 Carbon Dioxide 31 H BUN 12 Creatinine 0.78 Glucose 92 Calcium 8.3 L - ABG Interpretation ABG results: PT/INR, D-dimer PT 12.9 Seconds (9.4-12.1) H 02/15/17 09:40 Consult Discharge Plan - Plan [facility]errals: [facility] [Primary Care Provider[facility] -
[2017-02-17 17:50] LABS: Kappa Qnt Free Light Chains 3.29 mg/dL (0.33-1.94); Lambda Qnt Free Light Chains 2.98 mg/dL (0.57-2.63)
[2017-02-18] MEDS: *HR* OxyCODONE Immed Rel 5 MG TABLET PO PRN ×3 (04:08→21:34)
[2017-02-18 08:07] LABS: Basophils % 0.2 %; Eosinophils # 0.4 K/mcL (0.0-0.6); Eosinophils % 3.5 %; Hematocrit 28.7 % (37.5-50.1); Hemoglobin 9.2 g/dL (12.9-16.9); Immature Granulocytes % 0.6 % (0-4); Lymphocytes # 0.8 K/mcL (0.6-4.6); Lymphocytes % 7.4 %; Mean Corpuscular HGB Conc 32.1 g/dL (31.6-35.5); Mean Corpuscular Hemoglobin 30.5 pg (28.0-33.3); Mean Platelet Volume 13.3 fL (9.4-12.4); Monocytes # 0.7 K/mcL (0.0-1.3); Monocytes % 6.5 %; Neutrophils # 8.8 K/mcL (1.6-8.9); Platelet Count 168 K/mcL (140-400); Red Blood Count 3.02 M/mcL (4.19-5.50); Red Cell Distribution Width 15.3 % (11.5-14.5); Segmented Neutrophils % 81.8 %
[2017-02-18 08:23] LABS: BUN/Creatinine Ratio 13 (6-26); Blood Urea Nitrogen 10 mg/dL (8-23); Calcium 8.6 mg/dL (8.6-10.3); Carbon Dioxide 32 mEq/L (23-29); Chloride 101 mEq/L (98-107); Glucose 88 mg/dL (70-105); Osmolality,Calculated 284 (280-300); Potassium 3.4 mEq/L (3.5-5.1); Sodium 138 mEq/L (136-145); eGFR For African Americans > 60 (> 60); eGFR For Non-African Americans > 60 (> 60)
--- NOTE | 2017-02-18 09:41 | Internal Med Progress Note ---
<Nickolas Palomino - Last Filed: 02/18/17 10:33> Date of Encounter: 02/18/17 Time of Encounter: 09:00 - Assessment and plan (1) GI bleed Current Visit: Yes Status: Acute Assessment and plan: Upper GI endoscopy shows normal esophagus with gastritis. Nonbleeding ulcer present with no stigmata of bleeding. Patient also has duodenitis. Hb stable. Patient denies any continued melena or hematochezia. Qualifiers: GI bleed type/associated pathology: anorectal hemorrhage Qualified Code(s) : K62.5 - Hemorrhage of anus and rectum (2) DVT (deep venous thrombosis) Current Visit: Yes Status: Acute Assessment and plan: Venous Doppler shows acute right posterior tibial vein thrombus. Discussed with oncology. 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 Continue to hold Eliquis We will continue to monitor blood counts. Qualifiers: Anemia type: iron deficiency Iron deficiency anemia type: chronic blood loss Qualified Code(s): D50.0 - Iron deficiency anemia secondary to blood loss (chronic) (4) Diarrhea Current Visit: Yes Status: Resolved Assessment and plan: Resolved Qualifiers: Diarrhea type: unspecified type Qualified Code(s): R19.7 - Diarrhea, unspecified (5) Decubitus ulcer Current Visit: Yes Status: Chronic Assessment and plan: Stage II decubitus ulcer in the coccygeal region. Supportive care with topical Allevyn. Patient has also declined functional capacity and generalized weakness. Physical therapy recommended SNF/ECF placement Qualifiers: Pressure ulcer location: sacral region Pressure ulcer stage: stage 2 Qualified Code(s): L89.152 - Pressure ulcer of sacral region, stage 2 (6) Hypertension Current Visit: Yes Status: Chronic Assessment and plan: Continue lisinopril. Fairly controlled. Qualifiers: Hypertension type: essential hypertension Qualified Code(s): I10 - Essential (primary) hypertension (7) DVT prophylaxis Current Visit: Yes Status: Acute Assessment and plan: GIB with anemia SCDs only (8) Morbid obesity Current Visit: Yes Status: Chronic Assessment and plan: Lifestyle modifications (9) Physical deconditioning Current Visit: Yes Status: Acute Assessment and plan: PTOT eval -for ECF/SNF placement consult SW for placement - Subjective Interval history: Patient seen and examined at bedside. 76-year-old male, wheelchair bound, STAGE II sacral decubitus ulcer and deconditioning. He has a past medical history of hypertension. He is admitted for GI bleed and acute blood loss anemia is secondary to anticoagulation He is s/p IVC filter and EGD Patient reports normally residing at home, but in the last 2 weeks he has been at [facility] for PT/OT given his recent DVT. PTOT's I recommended SNF/ECF placement, will consult social work Patient has no new complaints today, he reports some difficulty walking, and reports this is chronic. He denies having any new weakness, shortness of breath , chest pain. Hemoglobin has remained stable overnight - Constitutional Vitals: Temp Pulse Resp BP Pulse Ox 98.0 F 73 16 128/64 92 02/18/17 07:20 02/18/17 07:20 02/18/17 07:20 02/18/17 07:20 02/18/17 07:20 General appearance: Present: A&O X 3, morbidly obese, pleasant, no acute distress, answers questions appropriately Exam: General: Cooperative, pleasant, no acute distress, alert and oriented 3, answers questions appropriately, obese HEENT: Normocephalic, atraumatic, Conjunctiva pink, sclera anicteric Respiratory: No accessory muscle usage, clear to auscultation bilaterally, no wheezes/rhonchi/rales appreciated Cardiovascular: Regular rate and rhythm, S1 and S2 present, no murmurs/rubs/ gallops/clicks appreciated GI/abdominal: Nondistended, nontender, soft, normal bowel sounds, no peritoneal signs Extremities: No calf tenderness, noncyanotic, 3+ pitting edema on right lower extremity, 1+ on left lower extremity, warm, lower extremity pulses palpable and symmetrical Neurological: Alert and oriented 3, no facial droop, no focal deficits Skin: Dry, intact, normal color Internal Medicine: Result - Labs CBC & Chem 7: 02/18/17 07:44 02/18/17 07:44 Labs: Short CBC 02/18/17 Range/Units 07:44 WBC 10.8 (4.3-11.1) K/mcL Hgb 9.2 L (12.9-16.9) g/dL Hct 28.7 L (37.5-50.1) % Plt Count 168 (140-400) K/mcL Neutrophils # 8.8 (1.6-8.9) K/mcL BMP 02/18/17 07:44 Sodium 138 Potassium 3.4 L Chloride 101 Carbon Dioxide 32 H BUN 10 Creatinine 0.78 Glucose 88 Calcium 8.6 - ABG Interpretation ABG results: PT/INR, D-dimer PT 12.9 Seconds (9.4-12.1) H 02/15/17 09:40 Consult Discharge Plan - Plan [facility]errals: [facility] [Primary Care Provider[facility] - <Wesley Valerio - Last Filed: 02/18/17 13:37> Date of Encounter: 02/18/17 - Assessment and plan (1) DVT prophylaxis Current Visit: Yes Status: Acute (2) Morbid obesity Current Visit: Yes Status: Chronic (3) Hypertension Current Visit: Yes Status: Chronic Qualifiers: Hypertension type: essential hypertension Qualified Code(s): I10 - Essential (primary) hypertension (4) DVT (deep venous thrombosis) Current Visit: Yes Status: Acute Qualifiers: DVT location: lower extremity Affected thrombotic vein of extremity: tibial Chronicity: chronic Laterality: right Qualified Code(s): 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 (5) Physical deconditioning Current Visit: Yes Status: Acute (6) GI bleed Current Visit: Yes Status: Acute Qualifiers: GI bleed type/associated pathology: anorectal hemorrhage Qualified Code(s) : K62.5 - Hemorrhage of anus and rectum (7) Anemia Current Visit: Yes Status: Acute Qualifiers: Anemia type: iron deficiency Iron deficiency anemia type: chronic blood loss Qualified Code(s): D50.0 - Iron deficiency anemia secondary to blood loss (chronic) (8) Diarrhea Current Visit: Yes Status: Resolved Qualifiers: Diarrhea type: unspecified type Qualified Code(s): R19.7 - Diarrhea, unspecified (9) Decubitus ulcer Current Visit: Yes Status: Chronic Qualifiers: Pressure ulcer location: sacral region Pressure ulcer stage: stage 2 Qualified Code(s): L89.152 - Pressure ulcer of sacral region, stage 2 - Constitutional Vitals: Temp Pulse Resp BP Pulse Ox 97.4 F L 73 18 143/69 96 02/18/17 10:36 02/18/17 10:36 02/18/17 10:36 02/18/17 10:36 02/18/17 10:36 Internal Medicine: Result - Labs CBC & Chem 7: 02/18/17 07:44 02/18/17 07:44 Labs: Short CBC 02/18/17 Range/Units 07:44 WBC 10.8 (4.3-11.1) K/mcL Hgb 9.2 L (12.9-16.9) g/dL Hct 28.7 L (37.5-50.1) % Plt Count 168 (140-400) K/mcL Neutrophils # 8.8 (1.6-8.9) K/mcL BMP 02/18/17 07:44 Sodium 138 Potassium 3.4 L Chloride 101 Carbon Dioxide 32 H BUN 10 Creatinine 0.78 Glucose 88 Calcium 8.6 - ABG Interpretation ABG results: PT/INR, D-dimer PT 12.9 Seconds (9.4-12.1) H 02/15/17 09:40 - Attending Attestation I have independently seen and examined this patient on 02/18/17 and discussed plan of care with the patient and the resident physicians 76-year-old male, wheelchair bound, STAGE II sacral decubitus ulcer and deconditioning. He has a past medical history of hypertension. He is admitted for GI bleed and acute blood loss anemia is secondary to anticoagulation He is s/p IVC filter and EGD PTOT recommends SNF/ECF placement Patient is reluctant and wants to go home but his caregivers have been complaining of fatigue and inabilty to care for him No new complains Exam: VSS, not in distress, moves all extremities, chest is CTAB, HS S1, S2 only , no g/m/r, abdomen is obese and not tender, assymetric RLE edema Labs reviewed: Hb is stable Plan is to continue current care SW eval for placement Rest as in resident physician's documentation
[2017-02-18] MEDS: Folic Acid 1 MG TABLET PO SCH (09:57)
[2017-02-18] MEDS: Cyanocobalamin (B-12) 1,000 MCG TABLET PO SCH (09:57)
[2017-02-18] MEDS: Cholecalciferol (D-3) 1,000 UNIT TABLET PO SCH (09:57)
[2017-02-18] MEDS: Lisinopril 20 MG TABLET PO SCH (09:57)
[2017-02-18] MEDS: Gabapentin 100 MG CAPSULE PO SCH ×3 (09:57→21:33)
[2017-02-18] MEDS: Pantoprazole 40 MG VIAL IVP SCH (10:02)
[2017-02-18] MEDS: Lidocaine OINT 35.44 GM TUBE TP SCH ×4 (10:05→21:34)
[2017-02-18 16:56] LABS: Alpha 2 Globulin (PEP) 0.76 g/dL (0.48-1.05)
[2017-02-19] MEDS: *HR* OxyCODONE Immed Rel 5 MG TABLET PO PRN ×3 (05:59→22:49)
[2017-02-19 07:45] LABS: IFE Reflexed NOT DONE
[2017-02-19] MEDS: Folic Acid 1 MG TABLET PO SCH (08:47)
[2017-02-19] MEDS: Gabapentin 100 MG CAPSULE PO SCH ×3 (08:47→19:58)
[2017-02-19] MEDS: Pantoprazole 40 MG VIAL IVP SCH (08:47)
[2017-02-19] MEDS: Cholecalciferol (D-3) 1,000 UNIT TABLET PO SCH (08:47)
[2017-02-19] MEDS: Lisinopril 20 MG TABLET PO SCH (08:47)
[2017-02-19] MEDS: Cyanocobalamin (B-12) 1,000 MCG TABLET PO SCH (08:47)
--- NOTE | 2017-02-19 09:03 | Discharge Summary ---
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 (3) Anemia Priority: Primary Status: Acute Qualifiers: Anemia type: iron deficiency Iron deficiency anemia type: chronic blood loss Qualified Code(s): D50.0 - Iron deficiency anemia secondary to blood loss (chronic) (4) Diarrhea Priority: Primary Status: Resolved Qualifiers: Diarrhea type: unspecified type Qualified Code(s): R19.7 - Diarrhea, unspecified (5) Decubitus ulcer Priority: Primary Status: Chronic Qualifiers: Pressure ulcer location: sacral region Pressure ulcer stage: stage 2 Qualified Code(s): L89.152 - Pressure ulcer of sacral region, stage 2 (6) Hypertension Priority: Primary Status: Chronic Qualifiers: Hypertension type: essential hypertension Qualified Code(s): I10 - Essential (primary) hypertension (7) DVT prophylaxis Priority: Secondary Status: Acute (8) Morbid obesity Priority: Primary Status: Chronic (9) Physical deconditioning Priority: Primary Status: Acute - Discharge Medications Prescriptions: OxyCODONE Immed Rel [Roxicodone 5 MG] 5 mg PO Q6HR PRN #20 tablet PRN Reason: Moderate to Severe Pain (4-10) Lidocaine Patch [Lidoderm 5% patch] 1 each TP DAILY #14 adh..patch Omeprazole [PriLOSEC] 40 mg PO DAILY #30 cap Home Medications: Aloe Vera/Collagen [Aloe [place] Cleansing Foam] 1 appl TP AD 01/09/17 [History] Azelastine 0.1% Nasal [place] [Astelin] 1 spray NS BID 01/09/17 [History] Balsam Wilder/[place] Oil [Venelex Ointment] 1 appl TP BID 01/09/17 [History] Bisacodyl [Dulcolax] 10 mg PO DAILY PRN 01/09/17 [History] Cholecalciferol (D-3) [Vitamin D] 2,000 unit PO DAILY 01/09/17 [History] Cyanocobalamin (Vitamin B-12) [Vitamin B12] 1,000 mcg PO DAILY 01/09/17 [History ] Diclofenac Sodium [Voltaren] 4 gm TP QID PRN 01/09/17 [History] Folic Acid 1 mg PO DAILY 01/09/17 [History] Gabapentin [Neurontin] 200 mg PO TID 01/09/17 [History] Hexamethyldisiloxane/Acryl-Out Patient Therapist [No Sting Skin Prep Wipes] 1 each TP AD 01/09/17 [History] Hydrocortisone 1% OINT [Cortaid] 1 appl TP BID PRN 01/09/17 [History] Hydrocortisone 2.5% CREAM [Cortaid] 1 appl TP BID 01/09/17 [History] Hydrocortisone/Pramoxine [Proctofoam-Hc 1%-1% Foam] 1 applic RC BID PRN [History] Hydrophilic Cream [[place]] 1 appl TP DAILY 01/09/17 [History] Ketoconazole Shampoo [Nizoral Shampoo] 1 appl TP DAILY 01/09/17 [History] Lidocaine 1 appl TP QID 01/09/17 [History] Lisinopril [Zestril] 40 mg PO DAILY 01/09/17 [History] Nystatin OINT [Mycostatin] 1 appl TP BID 01/09/17 [History] Nystatin POWDER [Nystop] 1 appl TP BID 01/09/17 [History] Potassium Chloride [K-Tab ER] 20 meq PO DAILY 01/09/17 [History] Propylene Glycol/Peg 400 [Systane 0.3-0.4% Eye Drops] 1 drop BOTH EYES QID 01/09 [History] Ranitidine HCl [Zantac] 150 mg PO DAILY 01/09/17 [History] Selenium Sulfide [Selrx] 1 appl TP 2XW 01/09/17 [History] Sennosides/Docusate Sodium [Senna Plus] 2 each PO DAILY 01/09/17 [History] Sod Chloride/B-6/Zinc Acet/Ca [Wound Cleanser] 3 - 5 spray TP BID 01/09/17 [ History] Tamsulosin [Flomax] 0.4 mg PO HS 01/09/17 [History] Terbinafine HCl [Terbinafine] 1 appl TP BID 01/09/17 [History] Triamcinolone Acet 0.1% CRM [Kenalog] 1 appl TP BID 01/09/17 [History] Triamcinolone Acetonide [Nasacort] 2 spray NS DAILY 01/09/17 [History] Witlaverne Frederickel [Preparation H] 1 each TP BID PRN 01/09/17 [History] Cleansing Cloth, Adult 1 each TP Q3H PRN 02/13/17 [History] Furosemide [Lasix] 40 mg PO QAM 02/13/17 [History] Acetaminophen [Tylenol] 650 mg PO Q6HR PRN tablet 02/19/17 [Rx] Ferrous Sulfate 325 mg PO BIDWM tablet 02/19/17 [Rx] Lidocaine Patch [Lidoderm 5% patch] 1 each TP DAILY #14 adh..patch 02/19/17 [Rx] Omeprazole [PriLOSEC] 40 mg PO DAILY #30 cap 02/19/17 [Rx] OxyCODONE Immed Rel [Roxicodone 5 MG] 5 mg PO Q6HR PRN #20 tablet 02/19/17 [Rx] Allergies/Adverse Reactions: 3 Allergy/AdvReac Type Severity Reaction Status Date / Time atorvastatin Allergy Hives Verified 01/09/17 19:10 codeine Allergy Hives Verified 01/09/17 19:10 etodolac Allergy Hives Verified 01/09/17 19:10 losartan Allergy Hives Verified 01/09/17 19:10 naproxen Allergy Hives Verified 01/09/17 19:10 tramadol Allergy Hives Verified 01/09/17 19:10 duloxetine AdvReac See Verified 02/13/17 19:35 Comments Date of admission: 02/13/17 22:00 [facility] care physician: [facility] Consults: 02/14/17 00:25 Consult to Nutrition [CONS] Routine Comment: Consulting Provider: NUTRITION Reason for Dietary Consult: MST Score Consult to Research Professional [CONS] Routine Reason for SW Consult: poss d/c needs 02/14/17 08:44 Consult to Oncology Hematology [CONS] Routine Consulting Provider: Roxanne Brenner Reason for Consult: DVT with GI bleed Time Notified: 08:45 Call Completed: Yes 02/15/17 12:10 Consult to Interventional Radiology [CONS] Stat Consulting Provider: Radiology Interventional Cols Reason for Consult: Placement of IVC filter Time Notified: 12:11 Call Completed: Yes 02/15/17 15:29 Consult to Physical Therapy [CONS] Routine Comment: Evaluate, develop and implement POC Reason for Consult: weakness, possible need for ECF 02/15/17 15:31 Consult to Occupational Therapy [CONS] Routine Comment: Evaluate, develop and implement POC Reason for Consult: weakness, possible need for ECF Discharging clinician: Nickolas Palomino Anticipated date of discharge: 02/19/17 - Patient Status Disposition: Transfer [facility] Condition: Fair Functional capacity at discharge: wheelchair bound Overall status at discharge: patient is progressing back to baseline - Discharge Instructions Follow Up With: [facility] [Primary Care Provider] - (waiting for placement...) Additional Instructions: Return to emergency department if return of blood in stool, developed chest pain , development shortness of breath, development of weakness. Take all medications as prescribed: Stop Eliquis Start omeprazole 40 mg daily Lidocaine patches to assist with pain until further assessment by PCP or oncology Short course of oxycodone as needed for additional pain Follow-up with her PCP a 1-2 weeks Follow-up with oncology in 2-3 weeks - Diet and Activity Activity: as per physical therapy, increase activity as tolerated Diet: advance to your usual diet Interval History: Patient doing well this morning with no new concerns/complaints. Patient is safe/stable for discharge. Hospital course: Mr. Rodriguez is a 76 year old male with past medical history of mild dementia, arthritis, recent DVT (diagnosed in December and currently on Eliquis), and hypertension who presented to [place] on 02/13/17 with an acute GI bleed and bright red blood per rectum. Patient was stabilized with FFP, transfuse PRBC, and started on IV PPI drip and his Eliquis was held. Patient underwent EGD that showed a nonbleeding gastric ulcer and gastritis. He was seen by oncology due to his recent DVT and difficulty with anticoagulation. After discussion with oncology, it was determined the best course [facility] to stop his anticoagulation and place an IVC filter. Since being place patient hemoglobin has remained stable and he is safe/stable for discharge with follow-up with his PCP and oncology. - Time Spent with Patient Total time spent providing and/or coordinating discharge services: - Constitutional Vitals: Temp Pulse Resp BP Pulse Ox 99.3 F 70 18 119/69 95 02/19/17 08:05 02/19/17 08:05 02/19/17 08:05 02/19/17 08:05 02/19/17 08:05 General appearance: Present: A&O X 3, morbidly obese, pleasant, no acute distress, answers questions appropriately Exam: General: Cooperative, pleasant, no acute distress, alert and oriented 3, answers questions appropriately, obese HEENT: Normocephalic, atraumatic, Conjunctiva pink, sclera anicteric Respiratory: No accessory muscle usage, clear to auscultation bilaterally, no wheezes/rhonchi/rales appreciated Cardiovascular: Regular rate and rhythm, S1 and S2 present, no murmurs/rubs/ gallops/clicks appreciated GI/abdominal: Nondistended, nontender, soft, normal bowel sounds, no peritoneal signs Extremities: No calf tenderness, noncyanotic, 3+ pitting edema on right lower extremity, 1+ on left lower extremity, warm, lower extremity pulses palpable and symmetrical Neurological: Alert and oriented 3, no facial droop, no focal deficits Skin: Dry, intact, normal color <Wesley Valerio - Last Filed: 02/19/17 15:39> Date of Encounter: 02/19/17 - Discharge Diagnosis (1) DVT prophylaxis Status: Acute (2) Morbid obesity Status: Chronic (3) Hypertension Status: Chronic Qualifiers: Hypertension type: essential hypertension Qualified Code(s): I10 - Essential (primary) hypertension (4) DVT (deep venous thrombosis) Status: Acute Qualifiers: DVT location: lower extremity Affected thrombotic vein of extremity: tibial Chronicity: chronic Laterality: right Qualified Code(s): 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 (5) Physical deconditioning Status: Acute (6) GI bleed Status: Acute Qualifiers: GI bleed type/associated pathology: anorectal hemorrhage Qualified Code(s) : K62.5 - Hemorrhage of anus and rectum (7) Anemia Status: Acute Qualifiers: Anemia type: iron deficiency Iron deficiency anemia type: chronic blood loss Qualified Code(s): D50.0 - Iron deficiency anemia secondary to blood loss (chronic) (8) Diarrhea Status: Resolved Qualifiers: Diarrhea type: unspecified type Qualified Code(s): R19.7 - Diarrhea, unspecified (9) Decubitus ulcer Status: Chronic Qualifiers: Pressure ulcer location: sacral region Pressure ulcer stage: stage 2 Qualified Code(s): L89.152 - Pressure ulcer of sacral region, stage 2 Date of admission: 02/13/17 22:00 [facility] care physician: [facility] Consults: 02/14/17 00:25 Consult to Nutrition [CONS] Routine Comment: Consulting Provider: NUTRITION Reason for Dietary Consult: MST Score Consult to Research Professional [CONS] Routine Reason for SW Consult: poss d/c needs 02/14/17 08:44 Consult to Oncology Hematology [CONS] Routine Consulting Provider: Roxanne Brenner Reason for Consult: DVT with GI bleed Time Notified: 08:45 Call Completed: Yes 02/15/17 12:10 Consult to Interventional Radiology [CONS] Stat Consulting Provider: Radiology Interventional Cols Reason for Consult: Placement of IVC filter Time Notified: 12:11 Call Completed: Yes 02/15/17 15:29 Consult to Physical Therapy [CONS] Routine Comment: Evaluate, develop and implement POC Reason for Consult: weakness, possible need for ECF 02/15/17 15:31 Consult to Occupational Therapy [CONS] Routine Comment: Evaluate, develop and implement POC Reason for Consult: weakness, possible need for ECF Hospital course: Mr. Rodriguez is a 76 year old male - Time Spent with Patient Total time spent providing and/or coordinating discharge services: - Constitutional Vitals: Temp Pulse Resp BP Pulse Ox 98.8 F 80 18 129/73 96 02/19/17 15:31 02/19/17 15:31 02/19/17 15:31 02/19/17 15:31 02/19/17 15:31 - Attending Attestation I have independently seen and examined this patient on 02/19/17 and discussed plan of care with the patient and the resident physicians 76-year-old male, wheelchair bound, STAGE II sacral decubitus ulcer and deconditioning. He has a past medical history of hypertension. He is admitted for GI bleed and acute blood loss anemia is secondary to anticoagulation He is s/p IVC filter and EGD PTOT recommends SNF/ECF placement Seen and examined at bedside No new complains Exam: VSS, not in distress, moves all extremities, chest is CTAB, HS S1, S2 only , no g/m/r, abdomen is obese and not tender, assymetric RLE edema Labs reviewed: NOne today, stable labs for several days Stable for discharge on current meds. Eliquis has been discontinued. Rest as in resident physician's documentation
--- NOTE | 2017-02-19 09:44 | Physician Discharge Referral ---
ExtendedCare Referral Info Provider in Charge after Transfer: PCP Institutional Level of Care: Skilled - Diagnosis (1) GI bleed Priority: Primary Status: Acute (2) DVT (deep venous thrombosis) Priority: Primary Status: Acute (3) Anemia Priority: Primary Status: Acute (4) Diarrhea Priority: Primary Status: Resolved (5) Decubitus ulcer Priority: Primary Status: Chronic (6) Hypertension Priority: Primary Status: Chronic (7) DVT prophylaxis Priority: Secondary Status: Acute (8) Morbid obesity Priority: Primary Status: Chronic (9) Physical deconditioning Priority: Primary Status: Acute - Transfer Medications Prescriptions: OxyCODONE Immed Rel [Roxicodone 5 MG] 5 mg PO Q6HR PRN #20 tablet PRN Reason: Moderate to Severe Pain (4-10) Lidocaine Patch [Lidoderm 5% patch] 1 each TP DAILY #14 adh..patch Omeprazole [PriLOSEC] 40 mg PO DAILY #30 cap Home Medications: Aloe Vera/Collagen [Aloe [place] Cleansing Foam] 1 appl TP AD 01/09/17 [History] Azelastine 0.1% Nasal [place] [Astelin] 1 spray NS BID 01/09/17 [History] Balsam [place] Oil [Venelex Ointment] 1 appl TP BID 01/09/17 [History] Bisacodyl [Dulcolax] 10 mg PO DAILY PRN 01/09/17 [History] Cholecalciferol (D-3) [Vitamin D] 2,000 unit PO DAILY 01/09/17 [History] Cyanocobalamin (Vitamin B-12) [Vitamin B12] 1,000 mcg PO DAILY 01/09/17 [History ] Diclofenac Sodium [Voltaren] 4 gm TP QID PRN 01/09/17 [History] Folic Acid 1 mg PO DAILY 01/09/17 [History] Gabapentin [Neurontin] 200 mg PO TID 01/09/17 [History] Hexamethyldisiloxane/Acryl-Division Order Technician [No Sting Skin Prep Wipes] 1 each TP AD 01/09/17 [History] Hydrocortisone 1% OINT [Cortaid] 1 appl TP BID PRN 01/09/17 [History] Hydrocortisone 2.5% CREAM [Cortaid] 1 appl TP BID 01/09/17 [History] Hydrocortisone/Pramoxine [Proctofoam-Hc 1%-1% Foam] 1 applic RC BID PRN [History] Hydrophilic Cream [[place]] 1 appl TP DAILY 01/09/17 [History] Ketoconazole Shampoo [Nizoral Shampoo] 1 appl TP DAILY 01/09/17 [History] Lidocaine 1 appl TP QID 01/09/17 [History] Lisinopril [Zestril] 40 mg PO DAILY 01/09/17 [History] Nystatin OINT [Mycostatin] 1 appl TP BID 01/09/17 [History] Nystatin POWDER [Nystop] 1 appl TP BID 01/09/17 [History] Potassium Chloride [K-Tab ER] 20 meq PO DAILY 01/09/17 [History] Propylene Glycol/Peg 400 [Systane 0.3-0.4% Eye Drops] 1 drop BOTH EYES QID 01/09 [History] Ranitidine HCl [Zantac] 150 mg PO DAILY 01/09/17 [History] Selenium Sulfide [Selrx] 1 appl TP 2XW 01/09/17 [History] Sennosides/Docusate Sodium [Senna Plus] 2 each PO DAILY 01/09/17 [History] Sod Chloride/B-6/Zinc Acet/Ca [Wound Cleanser] 3 - 5 spray TP BID 01/09/17 [ History] Tamsulosin [Flomax] 0.4 mg PO HS 01/09/17 [History] Terbinafine HCl [Terbinafine] 1 appl TP BID 01/09/17 [History] Triamcinolone Acet 0.1% CRM [Kenalog] 1 appl TP BID 01/09/17 [History] Triamcinolone Acetonide [Nasacort] 2 spray NS DAILY 01/09/17 [History] Flavia [place] [Preparation H] 1 each TP BID PRN 01/09/17 [History] Cleansing Cloth, Adult 1 each TP Q3H PRN 02/13/17 [History] Furosemide [Lasix] 40 mg PO QAM 02/13/17 [History] Acetaminophen [Tylenol] 650 mg PO Q6HR PRN tablet 02/19/17 [Rx] Ferrous Sulfate 325 mg PO BIDWM tablet 02/19/17 [Rx] Lidocaine Patch [Lidoderm 5% patch] 1 each TP DAILY #14 adh..patch 01/02/18 [Rx] Omeprazole [PriLOSEC] 40 mg PO DAILY #30 cap 02/19/17 [Rx] OxyCODONE Immed Rel [Roxicodone 5 MG] 5 mg PO Q6HR PRN #20 tablet 02/19/17 [Rx] Allergies/Adverse Reactions: 3 Allergy/AdvReac Type Severity Reaction Status Date / Time atorvastatin Allergy Hives Verified 01/09/17 19:10 codeine Allergy Hives Verified 01/09/17 19:10 etodolac Allergy Hives Verified 01/09/17 19:10 losartan Allergy Hives Verified 01/09/17 19:10 naproxen Allergy Hives Verified 01/09/17 19:10 tramadol Allergy Hives Verified 01/09/17 19:10 duloxetine AdvReac See Verified 02/13/17 19:35 Comments - Respiratory Orders Smoking Cessation: Smoking cessation has been advised. For more information, call the [employer] Tobacco Quit Line at 2-173-BQWJ-NOW. - Advance Directives Code Status: DNR-Arrest - Mobility Orders Other (Wheelchair) - Rehabiliation Orders Rehab Potential: Fair Rehab Orders: Evaluation for Physical Therapy, Evaluation for Occupational Therapy - Treatments Skin tear care topically daily PRN per policy - Diet Orders Regular CERTIFICATION: I certify that the transfer of the above named patient to an Extended Care Facility is necessary for the continuing treatment of the diagnosis listed. The above information is true and accurate reflection of patient's current condition. Confidential - Redisclosure prohibited without a patient's written consent.
[2017-02-19] MEDS: Lidocaine OINT 35.44 GM TUBE TP SCH ×4 (10:00→19:59)
[2017-02-20] MEDS: Cyanocobalamin (B-12) 1,000 MCG TABLET PO SCH (08:17)
[2017-02-20] MEDS: Gabapentin 100 MG CAPSULE PO SCH ×3 (08:17→22:10)
[2017-02-20] MEDS: Folic Acid 1 MG TABLET PO SCH (08:17)
[2017-02-20] MEDS: Lisinopril 20 MG TABLET PO SCH (08:17)
[2017-02-20] MEDS: Cholecalciferol (D-3) 1,000 UNIT TABLET PO SCH (08:17)
[2017-02-20] MEDS: Lidocaine OINT 35.44 GM TUBE TP SCH ×4 (08:18→23:23)
[2017-02-20] MEDS: Sucralfate 1 GM TABLET PO SCH ×3 (11:33→22:11)
[2017-02-20] MEDS: Artificial Tears SOLN 15 ML BOTTLE BOTH EYES PRN ×2 (14:33→23:23)
[2017-02-20] MEDS: *HR* OxyCODONE Immed Rel 5 MG TABLET PO PRN (14:42)
[2017-02-21] MEDS: *HR* OxyCODONE Immed Rel 5 MG TABLET PO PRN (01:31)
[2017-02-21] MEDS: Gabapentin 100 MG CAPSULE PO SCH (09:57)
[2017-02-21] MEDS: Sucralfate 1 GM TABLET PO SCH (09:57)
[2017-02-21] MEDS: Lisinopril 20 MG TABLET PO SCH (09:57)
[2017-02-21] MEDS: Cyanocobalamin (B-12) 1,000 MCG TABLET PO SCH (09:57)
[2017-02-21] MEDS: Cholecalciferol (D-3) 1,000 UNIT TABLET PO SCH (09:58)
[2017-02-21] MEDS: Lidocaine OINT 35.44 GM TUBE TP SCH (09:58)
[2017-02-21] MEDS: Folic Acid 1 MG TABLET PO SCH (09:58)
[2017-02-21 11:25] VITALS: BP 137/75
--- NOTE | 2017-02-21 17:34 | Event Note ---
Date of Encounter: 02/21/17 Time of Encounter: 11:00 Patient discharged to ECF today
[2017-04-02 12:28] LABS: Ferritin 546 ng/ml (20-250)
== END 2017-02-21 13:08 | DRG 357 ==
LOC: 2ANU 16:54 → EMEROO 16:54 → 2ANU 21:10 → SUATTDRO 22:00
PROVIDERS: ADMIT Internal Medicine; ATTEND Hospitalist
PROC: ENDOEBX (2017-02-15 09:30)